=== PATIENT | male | born 1965 ===

== ENCOUNTER 2021-05-19 22:51 | Emergency (ER) | payer MEDICARE, MEDICAID, SELFPAY ==
--- NOTE | ~2021-05-19 | XR_ITS ---
EXAMINATION: XR CHEST CLINICAL INFORMATION: Asthma and shortness of breath. COMPARISON: None TECHNIQUE: Frontal view of the chest was obtained. FINDINGS: No significant abnormality is noted involving the heart, lungs, mediastinum, bony thorax or soft tissues. XR/XR chest 1V IMPRESSION: Unremarkable examination.
[2021-05-19 23:25] VITALS: BP 130/86; PULSE 85; RESP 18; TEMP 37.1; O2SAT 96; BMI 24.1
[2021-05-20 00:11] LABS: COVID-19 Test Negative (Negative)
[2021-05-20 02:00] VITALS: BP 151/92; PULSE 84; RESP 15; TEMP 36.8; O2SAT 97
--- NOTE | 2021-05-20 03:01 | ED.URI ---
HPI - URI/Sore Throat General Chief Complaint: Upper Respiratory Symptoms Stated Complaint: Asthma Time Seen by Provider: 05/19/21 23:59 History of Present Illness HPI Narrative: Patient is a 56-year-old male with a history of asthma. Baseline on albuterol. Never been hospitalized. Just recently came from [place]. Positive coughing upper respiratory symptoms. Patient already received his coronavirus vaccine x2. Positive generalized malaise weakness. No vomiting. Related Data Previous Rx's Medication Instructions Recorded albuterol sulfate 90 mcg/actuation 2 puff INHALATION Q6H PRN 14 Days 05/20/21 aerosol inhaler #8.5 g prednisone 20 mg tablet 40 mg PO DAILY #10 tab 05/20/21 Allergies Allergy/AdvReac Type Severity Reaction Status Date / Time No Known Allergies Allergy Verified 05/20/21 02:44 Review of Systems Review of Systems: Positive wheezing positive coughing upper respiratory symptoms No history of [place] No history of congestive heart failure All system reviewed otherwise negative Yes all other systems are reviewed and are negative FORMERLY [facility], [facility] Past Medical History Attestation statement: The following information was validated with the patient. Medical History Asthma Social History Social History Alcohol intake: never Patient Tobacco Use Status: Never used Tobacco Use of substances other than those prescribed or required for medical reasons: No Advance Directives: No Physical Exam Vital Signs: Vital Signs: Last Vital Signs Temp 98.3 F 05/20/21 02:00 Pulse 85 05/20/21 03:37 Resp 18 05/20/21 03:37 BP 151/92 H 05/20/21 02:00 Pulse Ox 97 05/20/21 02:00 BMI result Body Mass Index 24.1 Appearance: Alert. Oriented X3. No acute distress. Eyes: Pupils equal, round and reactive to light. ENT: Pharynx normal. Neck: Normal inspection. Neck supple. No lymph nodes noted. No crepitus CVS: Normal heart rate and rhythm. Pulses normal. Normal S1 and S2 Respiratory: No respiratory distress. Positive expiratory wheezing noted bilaterally Abdomen: Soft and nontender. No rigidity. No distention. good BS x4 Skin: Skin warm and dry. Normal skin color. Normal skin turgor. Extremities: No lower extremity edema. Neurovascular intact to all extremities. No Lacerations. No Rash Neuro: Oriented X 3. No motor deficit. No sensory deficit. Moving all extermities. No slurred speech MDM - URI/Sore Throat MDM Narrative Medical decision making narrative: Patient's chest x-ray negative for acute infiltrate COVID test was negative. Given neb treatment here in the emergency department. Steroids given. Symptoms resolved. Will discharge patient home. Close follow-up outpatient basis will prescribe steroids. In stable condition. Medical Records Attestation: I reviewed the patient's medical records. Lab Data Attestation: I reviewed the patient's lab results. Labs: Lab Results 05/19/21 Range/Units 23:43 COVID-19 ([facility]) Negative (Negative) COVID-19 Clin Com See Note Discharge Plan Discharge Clinical Impression: Asthma Patient Disposition: Home, Self-Care Instructions: Asthma (ED) Prescriptions: New prednisone 20 mg tablet 40 mg PO DAILY Qty: 10 RF: 0 albuterol sulfate 90 mcg/actuation HFA aerosol inhaler 2 puff inhalation Q6H PRN (Reason: shortness of breath or wheezing) 14 Days Qty: 8.5 RF: 0 Print Language: German
[2021-05-20] MEDS: Albuterol/Iprat 2.5/0.5MG 3 ML AMPUL.NEB INHALE (03:36)
[2021-05-20] MEDS: Albuterol Sulfate (0.083%) 2.5 MG/3 ML VIAL.NEB 5 MG INHALE (03:36)
[2021-05-20 03:37] VITALS: PULSE 85; RESP 18; O2SAT 96
[2021-05-20] MEDS: predniSONE 20 MG TABLET 60 MG PO (03:40)
== END 2021-05-20 05:16 | disposition home or self-care (01) ==
PROVIDERS: Emergency Provider Emergency Medicine Emergency Medical Services
DX: J45.909 Unspecified asthma, uncomplicated (principal); Z20.822 Contact with and (suspected) exposure to COVID-19; Z79.899 Other long term (current) drug therapy
CPT/HCPCS: 71045; 87635; 94640; 99284; 99285

== ENCOUNTER 2022-10-08 08:47 | Outpatient (REF) | payer OTHER, SELFPAY ==
[2022-10-08 09:06] LABS: MANUAL DIFF FLAG NO
[2022-10-08 09:33] LABS: Basophils Absolute Auto 0.1 X10*3/uL (0.0-0.2); Basophils Percent Auto 0.8 % (0-2); Eosinophils Absolute Auto 0.3 X10*3/uL (0.0-0.4); Eosinophils Percent Auto 3.6 % (0-4); Hematocrit 51.6 % (42.0-52.0); Hemoglobin 16.4 g/dl (14.0-18.0); Imm Gran Abs Auto 0.05 X10*3/uL (0.00-0.03); Imm Gran Pct Auto 0.6 % (0.0-0.4); Lymphocytes Absolute Auto 3.3 X10*3/uL (1.2-4.9); Lymphocytes Percent Auto 37.9 % (20-40); Mean Corpuscular HGB Conc 31.8 g/dl (31.0-36.0); Mean Corpuscular Hemoglobin 28.4 pg (27.0-33.0); Mean Corpuscular Volume 89.4 fL (80.0-98.0); Mean Platelet Volume 9.7 fL (9.4-12.4); Monocytes Absolute Auto 0.8 X10*3/uL (0.1-1.2); Monocytes Percent Auto 9.1 % (2-11); Neutrophils Absolute Auto 4.2 x10*3/uL (2.0-8.3); Platelet Count 321 X10*3/uL (160-400); Red Blood Count 5.77 X10*6/uL (4.60-5.80); Red Cell Distribution Width 13.2 % (11.0-16.0); White Blood Count 8.8 X10*3/uL (4.8-10.8)
[2022-10-08 10:15] LABS: Alanine Aminotransferase 16 U/L (0-40); Albumin Level 4.4 g/dL (3.5-5.0); Alkaline Phosphatase 104 U/L (39-117); Anion Gap 12 (12-20); Aspartate Amino Transferase 15 U/L (5-37); Bilirubin Total 0.4 mg/dL (0.0-1.0); Blood Urea Nitrogen 12 mg/dL (9-16); Calcium 9.9 mg/dL (8.4-10.2); Carbon Dioxide 29 mmol/L (22-29); Chloride 104 mmol/L (96-108); Cholesterol 153 mg/dL; Estimated Glomerular Filt Rate > 60; Glucose Fasting 90 mg/dL (60-99); HDL Cholesterol 56 mg/dL; LDL Cholesterol Calculated 78 mg/dl; Potassium 4.9 mmol/L (3.3-5.1); Sodium 140 mmol/L (135-145); Total Protein 7.5 g/dL (6.5-8.0); Triglycerides 99 mg/dL
[2022-10-08 10:25] LABS: TSH reflex Free T4 1.44 uIU/mL (0.32-4.0); Vitamin D 25-OH Total 18.4 ng/mL (>30)
[2022-10-08 10:54] LABS: Appearance Urine Clear; Color Urine Yellow; Glucose Urine UA Negative (Negative); Leukocyte Esterase Urine Trace (Negative); Nitrite Urine Negative (Negative); PH 6.5 (5.0-9.0); UMIC TRIGGER UACC YES; Urine Blood Negative (Negative); Urine Ketones Negative (Negative); Urine Protein Negative (Neg-Trace)
[2022-10-08 10:58] LABS: Bacteria Urine None Seen (None Seen); Hyaline Casts Urine 0-2 /LPF (0-2); RBC Urine 0-2 /HPF (0-2); Squamous Epithelial Cell Urine 0-2 /HPF (0-2); WBC Urine 0-5 /HPF (0-5)
== END 2022-10-08 08:48 | disposition home or self-care (01) ==
LOC: HO.LAB 08:47
PROVIDERS: PCP Internal Medicine; Visit Provider Internal Medicine
DX: E78.00 Pure hypercholesterolemia, unspecified (principal); E55.9 Vitamin D deficiency, unspecified; I10 Essential (primary) hypertension
CPT/HCPCS: 36415; 80053; 80061; 81001; 82306; 84443; 85025

== ENCOUNTER → 2022-10-29 10:08 | Outpatient (REF) | payer OTHER, SELFPAY | LOC: HO.CARD 10:08 | PROVIDERS: PCP Internal Medicine; Visit Provider Internal Medicine | DX: R01.1 Cardiac murmur, unspecified (principal) | CPT/HCPCS: 93306 ==

== ENCOUNTER 2023-01-04 14:54 | Outpatient (AMB) | payer OTHER, SELFPAY ==
[2023-01-04 15:12] VITALS: BP 110/60; PULSE 84; O2SAT 98; BMI 26.7
--- NOTE | 2023-01-04 15:12 | A.OFFPC_ITS ---
Vital Signs 01/04/23 15:12 Height 5 ft 5 in Weight 160 lb 8 oz BMI 26.7 BP 110/60 Blood Pressure Location Lt brachial Position Sitting Pulse 84 Pulse Source Pulse Oximeter Pulse Oximetry (%) 98 Oxygen Delivery Method Room Air Intake Visit Reasons: HTN, asthma, cardiac murmur, bipolar depression [employer] Required: No Accompanied by: Self / Same As Patient Allergies No Known Allergies Allergy (Verified 01/05/23 02:57) Medication List - Last Reconciled 01/05/23 by Ha Little MD albuterol sulfate 90 mcg/actuation 2 puffs inhalation Q6H PRN 30 days amlodipine 5 mg PO DAILY 30 days melatonin 5 mg PO BID 30 days olanzapine 15 mg PO DAILY 30 days trazodone 50 mg PO BEDTIME PRN 30 days Tobacco use date assessed: 01/04/23 Dental Screening Dental Screen Date: 01/04/23 Did you have a dental visit in the last 12 months?: Yes Did you have a dental problem in the last 6 months where you did not have access to dental care?: No Was dental information given to patient?: Patient has dentist HPI HTN, asthma, cardiac murmur, bipolar depression HPI Details Patient comes in today for his follow up visit States that he feels okay He denies any headaches or dizziness Denies any chest pains, no SOB No nausea/vomiting, no abdominal pain No change in bowel habits noted Would like to know how he did on his labs done few months ago His family has noticed that patient seems to stay very drowsy for a while at times when he wakes up in the morning and would like to know if he can try cutting down on the dosage of some of the medications he takes at bedtime to help him sleep States that he has not yet been contacted by Psychiatry and has no appointment scheduled with them yet [facility]MERLY [facility] Medical History (Updated 01/05/23 @ 03:43 by Ha Little MD) Asthma Benign essential hypertension Bipolar depression Insomnia Overweight (BMI 25.0-29.9) Vitamin D deficiency Surgical History No pertinent past surgical history Family History Other Family history unknown Social History Housing: House Alcohol intake: never Patient Tobacco Use Status: Never used Tobacco e-Cigarette/Vaping Use: Never Used service: No Current occupational status: disabled Cognitive needs: No Hearing needs: Yes Vision needs: Yes Questionnaire PHQ-9 Over the last 2 weeks, how often have you been bothered by any of the following problems? 1. Little interest or pleasure in doing things: nearly every day 2. Feeling down, depressed, or hopeless: nearly every day 3. Trouble falling or staying asleep, or sleeping too much: more than half the days 4. Feeling tired or having little energy: more than half the days 5. Poor appetite or overeating: more than half the days 6. Feeling bad about yourself - or that you are a failure or have let yourself or your family down: several days 7. Trouble concentrating on things, such as reading the newspaper or watching television: several days 8. Moving or speaking so slowly that other people could have noticed. Or the opposite - being so fidgety or restless that you have been moving around a lot more than usual: several days 9. Thoughts that you would be better off or of hurting yourself in some way: several days Total score: 16 Depression Screening Interpretation: Positive Depression Screening Follow-up: Existing condition, In treatment and Community Mental Health Worker F/U 33708 - PHQ-9 Billing: Yes Source: Developed by Drs. Ayo Ramirez, Jocelyn Mireles, Adriel Hugo and colleagues, with an educational anil from [employer]. Thrive Questionnaire Date Thrive assessed: 01/04/23 I am a: Parent/Caregiver What is your living situation today?: I have a steady place to live Within the past 12 months, did the food you bought not last and you didn't have the money to get more?: Never true Within the past 12 months, did you worry whether your food would run out before you got money to buy more?: Never true Do you have trouble paying for medicines?: No Do you have trouble getting transportation to medical appointments?: No Do you have trouble paying your heating and electricity bill?: No Do you have trouble taking care of your child, family member or friend?: No Do you have trouble with day-to-day activities such as bathing, preparing meals, shopping, managing finances, etc.?: No Are you currently unemployed and looking for a job?: No Are you interested in more education?: No Please select the resources that you would like help with: None Currently or been in a relationship where the following occur: no concerns reported AUDIT C Alcohol Use Questionnaire (AUDIT-C) 1. How often do you have a drink containing alcohol?: Monthly or less 2. How many drinks containing alcohol do you have on a typical day when you are drinking?: 1 or 2 3. How often do you have six or more drinks on one occasion?: Never Total Score: 1 Score Reviewed/Action Taken: Yes ANJLEICA-7 AMB Questionnaire ANJELICA-7 Date ANJELICA - 7 assessed: 01/04/23 Feeling nervous, anxious, or on edge: 3 = Nearly every day Not being able to stop or control worryin = Nearly every day Worrying too much about different things: 3 = Nearly every day Trouble relaxin = Nearly every day Being so restless that it is hard to sit still: 1 = Several days Becoming easily annoyed or irritable: 1 = Several days Feeling afraid as if something awful might happen: 1 = Several days Total ANJELICA-7 score (0-4 normal; 5-9 mild; 10-14 moderate; 15-21 severe): 15 Source: Developed by Drs. Ayo Ramirez, Jocelyn Mireles, Adriel Hugo and colleagues, with an educational anil from [employer]. Review of Systems Const Reports difficulty sleeping, Reports fatigue, Denies fever(s) and Denies headache(s) ENT Denies dysphagia, Denies dizziness, Denies otalgia, Denies headache(s), Denies neck pain, Denies odynophagia and Denies sore throat Card Denies chest pain, Denies palpitations and Denies dyspnea Resp Denies cough and Denies dyspnea GI Denies abdominal pain, Denies constipation, Denies dysphagia, Denies heartburn, Denies diarrhea, Denies nausea, Denies odynophagia and Denies vomiting Denies dysuria, Denies nocturia and Denies urinary frequency Musc Denies neck pain Neuro Denies dizziness and Denies headache(s) Psych Reports depression Endo Reports fatigue and Denies palpitations Physical exam (Primary Care) Vital Signs: Last Vital Signs Pulse 84 01/04/23 15:12 BP 110/60 01/04/23 15:12 Pulse Ox 98 01/04/23 15:12 Oxygen Delivery Method Room Air 01/04/23 15:12 BMI result Body Mass Index 26.7 Tobacco/Smoking Status: Tobacco use Status Tobacco use date assessed 01/04/23 01/04/23 15:19 Patient Tobacco Use Status Never used Tobacco 01/04/23 15:19 e-Cigarette/Vaping Use Never Used 01/04/23 15:19 PHQ-9: PHQ-9 Score PHQ-9: Total score 16 01/04/23 15:58 Depression Screening Interpretation: Positive Depression Screening Follow-up: Existing condition, In treatment and Community Mental Health Worker F/U Thrive Assessment: Date of Thrive Assessment Date Thrive assessed 01/04/23 01/04/23 15:19 Currently or been in a relationship where the following occur: no concerns reported Const General: no acute distress and alert HENMT Ears: TM's normal bilaterally and EAC's normal Throat: Yes posterior oropharynx normal and Yes tonsils normal (no TP congestion) Neck Neck: Yes no lymphadenopathy and Yes supple Resp Auscultation: clear to auscultation bilaterally, no rales and no wheezes Cardio Rate: regular rate Rhythm: regular rhythm Heart sounds: Murmur heart sound present systolic soft, II/ and at the apex GI Palpation (GI): Soft to palpation and nontender Auscultation: normal bowel sounds Skin Rashes: no rashes Extrem General: Yes no clubbing, cyanosis or edema Results Reviewed Results Reviewed: Laboratory Tests 10/08/22 10/08/22 10/08/22 09:02 09:05 09:05 WBC 8.8 Hgb 16.4 Hct 51.6 Plt Count 321 Sodium 140 Potassium 4.9 Creatinine 0.89 Estimated GFR > 60 Fasting Glucose 90 AST 15 ALT 16 Triglycerides 99 Cholesterol 153 LDL Cholesterol, Calc 78 HDL Cholesterol 56 25-OH Vitamin D Total 18.4 TSH 1.44 Ur Specific [place] 1.020 Urine Protein Negative Urine Glucose (UA) Negative Urine Blood Negative Assessment and Plan Assessment & Plan (1) Benign essential hypertension: Code(s): I10 - Essential (primary) hypertension Plan: Reinforced low sodium diet - goal is systolic BP of 120 mm or less Continue Amlodipine 5 mg QD Patient is advised that his labs done a few months ago came out mostly normal - results of these are reviewed and discussed with patient today (2) Cardiac murmur: Code(s): R01.1 - Cardiac murmur, unspecified Plan: Echocardiogram done a couple of months ago revealed normal left ventricular size, thickness, systolic function, and wall motion. The visually estimated ejection fraction is between 55-60%.? Diastolic function is normal for age. Mildly increased right ventricular cavity size.? There is normal right ventricular systolic function. The right atrium is mildly dilated. There is trace MR and trace TR noted (3) Asthma: Code(s): J45.909 - Unspecified asthma, uncomplicated Qualifiers: Asthma severity: unspecified severity Asthma persistence: unspecified Asthma complication type: uncomplicated Qualified Code(s): J45.909 - Unspecified asthma, uncomplicated Plan: Controlled; continue Albuterol HFA 2 inhalations Q 6 hours PRN (4) Vitamin D deficiency: Code(s): E55.9 - Vitamin D deficiency, unspecified Plan: He is advised that his Vitamin D level was very low on his labs done a few months ago Will start him on Vitamin D3 2000 units QD (5) Insomnia: Code(s): G47.00 - Insomnia, unspecified Qualifiers: Insomnia type: unspecified Qualified Code(s): G47.00 - Insomnia, unspecified Plan: Sleep hygiene impractical given patient's current psychiatric issues Continue Trazodone 50 mg Q HS; is also taking Melatonin 5 mg 2 tablets Q HS but is now advised to try cutting this down to 1 tablet Q HS as patient reports that he has been feeling drowsy in the morning when he wakes up (6) Intellectual disability: Code(s): F79 - Unspecified intellectual disabilities Plan: Patient reportedly had some tests and imaging studies done at [facility] a few months ago and was advised that he has cognitive defects due to some abnormalities on his head scan Have tried to obtain copies of these from [facility] for review but we have not yet received any information or correspondence from them so far (7) Bipolar depression: Code(s): F31.9 - Bipolar disorder, unspecified Plan: Continue Olanzapine 15 mg QD Patient has been previously referred to psychiatry for further evaluation and management but states that he has not yet been contacted and no appointments have been scheduled for him yet (8) Overweight (BMI 25.0-29.9): Code(s): E66.3 - Overweight Plan: Reinforced diet; exercise and weight loss may be unrealistic given patient's psychiatric and cognitive issues but he is still encouraged to try to get some exercise and increase his physical activity as often and as much as he can - st ates that he will try to do so Plan Follow up in 3 months Medications: New cholecalciferol (vitamin D3) 50 mcg PO DAILY 90 days 90 caps 3RF E55.9 - Vitamin D deficiency, unspecified Coding Level of Care Code Est Pt Level 4 (85983) Diagnoses Benign essential hypertension I10 Cardiac murmur R01.1 Asthma J45.909 Asthma severity: unspecified severity Asthma persistence: unspecified Asthma complication type: uncomplicated Vitamin D deficiency E55.9 Insomnia G47.00 Insomnia type: unspecified Intellectual disability F79 Bipolar depression F31.9 Overweight (BMI 25.0-29.9) E66.3
== END 2023-01-04 16:02 | disposition home or self-care (01) ==
PROVIDERS: PCP Internal Medicine; Visit Provider Internal Medicine
DX: I10 Essential (primary) hypertension (principal); J45.909 Unspecified asthma, uncomplicated; E55.9 Vitamin D deficiency, unspecified; F31.9 Bipolar disorder, unspecified; R01.1 Cardiac murmur, unspecified; G47.00 Insomnia, unspecified; F79 Unspecified intellectual disabilities; E66.3 Overweight
CPT/HCPCS: 99214

== ENCOUNTER 2023-04-04 14:54 | Outpatient (AMB) | payer OTHER, SELFPAY ==
[2023-04-04 14:59] VITALS: BP 112/78; PULSE 84; O2SAT 95; BMI 30.7
--- NOTE | 2023-04-04 14:59 | MHC.PC.OV ---
Vital Signs 04/04/23 14:59 Height 5 ft 5 in Weight 184 lb 4 oz BMI 30.7 BP 112/78 Blood Pressure Location Lt brachial Position Sitting Pulse 84 Pulse Source Pulse Oximeter Pulse Oximetry (%) 95 Oxygen Delivery Method Room Air Intake Visit Reasons: 3mon F/U Medicine Technologist Required: No Accompanied by: Self / Same As Patient Allergies No Known Allergies Allergy (Verified 04/04/23 15:17) Medication List - Last Reconciled 04/04/23 by Ha Little MD albuterol sulfate 90 mcg/actuation 2 puffs inhalation Q6H PRN 30 days amlodipine 5 mg PO DAILY 30 days cholecalciferol (vitamin D3) 50 mcg PO DAILY 90 days melatonin 5 mg PO BID 30 days olanzapine 15 mg PO DAILY 30 days trazodone 50 mg PO BEDTIME PRN 30 days Tobacco use date assessed: 04/04/23 Dental Screening Dental Screen Date: 04/04/23 Did you have a dental visit in the last 12 months?: No Did you have a dental problem in the last 6 months where you did not have access to dental care?: No Was dental information given to patient?: No HPI 3mon F/U HPI Details Patient comes in today for his follow up visit States that he feels okay He denies any headaches or dizziness Denies any chest pains, no SOB No nausea/vomiting, no abdominal pain No change in bowel habits noted [facility] Medical History (Updated 04/04/23 @ 15:35 by Ha Little MD) Obesity (BMI 30-39.9) Vitamin D deficiency Insomnia Benign essential hypertension Bipolar depression Asthma Surgical History No pertinent past surgical history Family History Other Family history unknown Social History Housing: House Alcohol intake: never Patient Tobacco Use Status: Never used Tobacco e-Cigarette/Vaping Use: Never Used service: No Current occupational status: disabled Cognitive needs: No Hearing needs: Yes Vision needs: Yes Questionnaire PHQ-9 Over the last 2 weeks, how often have you been bothered by any of the following problems? 1. Little interest or pleasure in doing things: nearly every day 2. Feeling down, depressed, or hopeless: nearly every day 3. Trouble falling or staying asleep, or sleeping too much: more than half the days 4. Feeling tired or having little energy: more than half the days 5. Poor appetite or overeating: more than half the days 6. Feeling bad about yourself - or that you are a failure or have let yourself or your family down: several days 7. Trouble concentrating on things, such as reading the newspaper or watching television: several days 8. Moving or speaking so slowly that other people could have noticed. Or the opposite - being so fidgety or restless that you have been moving around a lot more than usual: several days 9. Thoughts that you would be better off or of hurting yourself in some way: several days Total score: 16 Depression Screening Interpretation: Positive Depression Screening Follow-up: Existing condition, In treatment and Community Mental Health Worker F/U Depression Screening Done: Yes 17080 - PHQ-9 Billing: Yes Source: Developed by Drs. Ayo Ramirez, Jocelyn Mireles, Adriel Hugo and colleagues, with an educational anil from [employer]. Thrive Questionnaire Date Thrive assessed: 04/04/23 I am a: Parent/Caregiver What is your living situation today?: I have a steady place to live Within the past 12 months, did the food you bought not last and you didn't have the money to get more?: Never true Within the past 12 months, did you worry whether your food would run out before you got money to buy more?: Never true Do you have trouble paying for medicines?: No Do you have trouble getting transportation to medical appointments?: No Do you have trouble paying your heating and electricity bill?: No Do you have trouble taking care of your child, family member or friend?: No Do you have trouble with day-to-day activities such as bathing, preparing meals, shopping, managing finances, etc.?: No Are you currently unemployed and looking for a job?: No Are you interested in more education?: No Please select the resources that you would like help with: None Currently or been in a relationship where the following occur: no concerns reported AUDIT C Alcohol Use Questionnaire (AUDIT-C) 1. How often do you have a drink containing alcohol?: Monthly or less 2. How many drinks containing alcohol do you have on a typical day when you are drinking?: 1 or 2 3. How often do you have six or more drinks on one occasion?: Never Total Score: 1 Score Reviewed/Action Taken: Yes ANJELICA-7 AMB Questionnaire ANJELICA-7 Date ANJELICA - 7 assessed: 04/04/23 Feeling nervous, anxious, or on edge: 3 = Nearly every day Not being able to stop or control worryin = Nearly every day Worrying too much about different things: 3 = Nearly every day Trouble relaxin = Nearly every day Being so restless that it is hard to sit still: 1 = Several days Becoming easily annoyed or irritable: 1 = Several days Feeling afraid as if something awful might happen: 1 = Several days Total ANJELICA-7 score (0-4 normal; 5-9 mild; 10-14 moderate; 15-21 severe): 15 Source: Developed by Drs. Ayo Ramirez, Jocelyn Mireles, Adriel Hugo and colleagues, with an educational anil from [employer]. Review of Systems Const Denies chills, Denies difficulty sleeping (better with Rx), Reports fatigue, Denies fever(s) and Denies headache(s) ENT Denies dysphagia, Denies dizziness, Denies otalgia, Denies headache(s), Denies neck pain, Denies odynophagia and Denies sore throat Card Denies chest pain, Denies palpitations and Denies dyspnea Resp Denies cough and Denies dyspnea GI Denies abdominal pain, Denies constipation, Denies dysphagia, Denies heartburn, Denies diarrhea, Denies nausea, Denies odynophagia and Denies vomiting Denies dysuria, Denies nocturia and Denies urinary frequency Musc Denies neck pain Skin/Breast Denies rash Neuro Denies dizziness and Denies headache(s) Psych Reports depression Endo Reports fatigue and Denies palpitations Physical exam (Primary Care) Vital Signs: Last Vital Signs Pulse 84 04/04/23 14:59 BP 112/78 04/04/23 14:59 Pulse Ox 95 04/04/23 14:59 Oxygen Delivery Method Room Air 04/04/23 14:59 BMI result Body Mass Index 30.7 Tobacco/Smoking Status: Tobacco use Status Tobacco use date assessed 04/04/23 04/04/23 15:04 Patient Tobacco Use Status Never used Tobacco 04/04/23 15:04 e-Cigarette/Vaping Use Never Used 04/04/23 15:04 PHQ-9: PHQ-9 Score PHQ-9: Total score 16 04/04/23 15:04 Depression Screening Interpretation: Positive Depression Screening Follow-up: Existing condition, In treatment and Community Mental Health Worker F/U Thrive Assessment: Date of Thrive Assessment Date Thrive assessed 04/04/23 04/04/23 15:04 Currently or been in a relationship where the following occur: no concerns reported Const General: no acute distress and alert HENMT Ears: TM's normal bilaterally and EAC's normal Throat: Yes posterior oropharynx normal and Yes tonsils normal (no TP congestion) Neck Neck: Yes no lymphadenopathy and Yes supple Resp Auscultation: clear to auscultation bilaterally, no rales and no wheezes Cardio Rate: regular rate Rhythm: regular rhythm Heart sounds: Murmur heart sound present systolic soft, II/ and at the apex GI Palpation (GI): Soft to palpation and nontender Auscultation: normal bowel sounds Skin Rashes: no rashes Extrem General: Yes no clubbing, cyanosis or edema Assessment and Plan Assessment & Plan (1) Benign essential hypertension: Code(s): I10 - Essential (primary) hypertension Plan: Reinforced low sodium diet - goal is systolic BP of 120 mm or less Continue Amlodipine 5 mg QD (2) Cardiac murmur: Code(s): R01.1 - Cardiac murmur, unspecified Plan: Echocardiogram done a few months ago revealed normal left ventricular size, thickness, systolic function, and wall motion. The visually estimated ejection fraction is between 55-60%.? Diastolic function is normal for age. Mildly increased right ventricular cavity size.? There is normal right ventricular systolic function. The right atrium is mildly dilated. There is trace MR and trace TR noted, which are most likely the source of his audible cardiac murmur (3) Asthma: Code(s): J45.909 - Unspecified asthma, uncomplicated Qualifiers: Asthma severity: unspecified severity Asthma persistence: unspecified Asthma complication type: uncomplicated Qualified Code(s): J45.909 - Unspecified asthma, uncomplicated Plan: Controlled/stable; continue Albuterol HFA 2 inhalations Q 6 hours PRN (4) Vitamin D deficiency: Code(s): E55.9 - Vitamin D deficiency, unspecified Plan: Continue Vitamin D3 2000 units QD (5) Insomnia: Code(s): G47.00 - Insomnia, unspecified Qualifiers: Insomnia type: unspecified Qualified Code(s): G47.00 - Insomnia, unspecified Plan: Sleep hygiene impractical given patient's current psychiatric issues Continue Trazodone 50 mg Q HS and Melatonin 5 mg 1 tablets Q HS - he is reportedly sleeping well and has less sedation the following morning when his Melatonin was lowered from 2 tablets to 1 tablet Q HS (6) Intellectual disability: Code(s): F79 - Unspecified intellectual disabilities Plan: Patient reportedly had some tests and imaging studies done at [facility] a few months ago and was advised that he has cognitive defects due to some abnormalities on his head scan Have tried to obtain copies of these from [facility] for review but we have not yet received any information or correspondence from them so far (7) Bipolar depression: Code(s): F31.9 - Bipolar disorder, unspecified Plan: Continue Olanzapine 15 mg QD Patient has been referred to psychiatry for further evaluation and management previously but states that he has not yet been seen by psychiatry although he is now following up with a therapist regularly every couple of weeks (8) Obesity (BMI 30-39.9): Code(s): E66.9 - Obesity, unspecified Plan: Reinforced diet; exercise and weight loss may be unrealistic given patient's psychiatric and cognitive issues but he is still encouraged to try to get some exercise and increase his physical activity as often and as much as he can He has gained a lot of weight (about 24 pounds) in less than 3 months and have instructed his [employer] to help him with this as patient is not expected to be able to make changes on his own due to his psychiatric issues Plan Follow up in 4 months Coding Level of Care Code Est Pt Level 3 (82346) Diagnoses Benign essential hypertension I10 Cardiac murmur R01.1 Uncomplicated asthma, unspecified asthma severity, unspecified whether persistent J45.909 Asthma severity: unspecified severity Asthma persistence: unspecified Asthma complication type: uncomplicated Vitamin D deficiency E55.9 Insomnia, unspecified type G47.00 Insomnia type: unspecified Intellectual disability F79 Bipolar depression F31.9 Obesity (BMI 30-39.9) E66.9
== END 2023-04-04 15:26 | disposition home or self-care (01) ==
PROVIDERS: PCP Internal Medicine; Visit Provider Internal Medicine
DX: I10 Essential (primary) hypertension (principal); F31.9 Bipolar disorder, unspecified; R01.1 Cardiac murmur, unspecified; J45.909 Unspecified asthma, uncomplicated; E55.9 Vitamin D deficiency, unspecified; G47.00 Insomnia, unspecified; F79 Unspecified intellectual disabilities; E66.9 Obesity, unspecified
CPT/HCPCS: 99213

== ENCOUNTER 2023-07-05 16:12 | Outpatient (AMB) | payer OTHER, SELFPAY ==
[2023-07-05 16:13] VITALS: BP 130/90; PULSE 80; O2SAT 97; BMI 31.3
--- NOTE | 2023-07-05 16:13 | A.OFFPC_ITS ---
Vital Signs 07/05/23 16:13 Height 5 ft 5 in Weight 188 lb 2 oz BMI 31.3 BP 130/90 H Blood Pressure Location Lt brachial Position Sitting Pulse 80 Pulse Source Pulse Oximeter Pulse Oximetry (%) 97 Oxygen Delivery Method Room Air Intake Visit Reasons: Physical Exam Vb Net Programmer Required: No Accompanied by: Self / Same As Patient Allergies No Known Allergies Allergy (Verified 07/05/23 16:57) Medication List - Last Reconciled 07/05/23 by Ha Little MD albuterol sulfate 90 mcg/actuation 2 puffs inhalation Q6H PRN 30 days amlodipine 5 mg PO DAILY 30 days cholecalciferol (vitamin D3) 50 mcg PO DAILY 90 days melatonin 5 mg PO BID 30 days olanzapine 15 mg PO DAILY 30 days trazodone 50 mg PO BEDTIME PRN 30 days Tobacco use date assessed: 07/05/23 Dental Screening Dental Screen Date: 07/05/23 Did you have a dental visit in the last 12 months?: No Did you have a dental problem in the last 6 months where you did not have access to dental care?: No Was dental information given to patient?: No HPI Physical Exam HPI Details Patient comes in today for his annual physical examination States that he feels okay but has been experiencing increased pain over his lower back often for the past few months He denies any history of injury or trauma to his lower back and is not aware of any recent events that may have contributed to his lower back issues He first started coming to our practice as a patient back in September 2022 - he reportedly moved here from [place] about 3 years ago (2020) and has not seen any PCP until last year He was seen and treated by a crisis team at [facility] early last year and started on some meds, which he has been on since He was supposedly also advised by someone at the crisis team that he (patient) has some unspecified mental disorder (bipolar depression ? 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 although this appears to be stable based on imaging studies done at [facility] Patient denies any headaches or dizziness Denies any chest pains, no SOB No nausea/vomiting, no abdominal pain No change in bowel habits noted He denies any acute urinary symptoms He needs all of his Rx refilled States that he has never had a screening colonoscopy done in the past [facility] Medical History (Updated 07/05/23 @ 19:23 by Ha Little MD) Intellectual disability Obesity (BMI 30-39.9) Vitamin D deficiency Insomnia Benign essential hypertension Bipolar depression Asthma Surgical History No pertinent past surgical history Family History Other Family history unknown Social History Housing: House Alcohol intake: never Patient Tobacco Use Status: Never used Tobacco e-Cigarette/Vaping Use: Never Used service: No Current occupational status: disabled Cognitive needs: No Hearing needs: Yes Vision needs: Yes Questionnaire PHQ-9 Over the last 2 weeks, how often have you been bothered by any of the following problems? 1. Little interest or pleasure in doing things: nearly every day 2. Feeling down, depressed, or hopeless: nearly every day 3. Trouble falling or staying asleep, or sleeping too much: more than half the days 4. Feeling tired or having little energy: more than half the days 5. Poor appetite or overeating: more than half the days 6. Feeling bad about yourself - or that you are a failure or have let yourself or your family down: several days 7. Trouble concentrating on things, such as reading the newspaper or watching television: several days 8. Moving or speaking so slowly that other people could have noticed. Or the opposite - being so fidgety or restless that you have been moving around a lot more than usual: several days 9. Thoughts that you would be better off or of hurting yourself in some way: several days Total score: 16 Depression Screening Interpretation: Positive Depression Screening Follow-up: Existing condition, In treatment and Community Mental Health Worker F/U Depression Screening Done: Yes 71964 - PHQ-9 Billing: Yes Source: Developed by Drs. Ayo Ramirez, Jocelyn Mireles, Adriel Hugo and colleagues, with an educational anil from [employer]. Thrive Questionnaire Date Thrive assessed: 07/05/23 I am a: Parent/Caregiver What is your living situation today?: I have a steady place to live Within the past 12 months, did the food you bought not last and you didn't have the money to get more?: Never true Within the past 12 months, did you worry whether your food would run out before you got money to buy more?: Never true Do you have trouble paying for medicines?: No Do you have trouble getting transportation to medical appointments?: No Do you have trouble paying your heating and electricity bill?: No Do you have trouble taking care of your child, family member or friend?: No Do you have trouble with day-to-day activities such as bathing, preparing meals, shopping, managing finances, etc.?: No Are you currently unemployed and looking for a job?: No Are you interested in more education?: No Please select the resources that you would like help with: None Currently or been in a relationship where the following occur: no concerns reported THRIVE Score: 0 AUDIT C Alcohol Use Questionnaire (AUDIT-C) 1. How often do you have a drink containing alcohol?: Monthly or less 2. How many drinks containing alcohol do you have on a typical day when you are drinking?: 1 or 2 3. How often do you have six or more drinks on one occasion?: Never Total Score: 1 Score Reviewed/Action Taken: Yes ANJELICA-7 AMB Questionnaire ANJELICA-7 Date ANJELICA - 7 assessed: 07/05/23 Feeling nervous, anxious, or on edge: 3 = Nearly every day Not being able to stop or control worryin = Nearly every day Worrying too much about different things: 3 = Nearly every day Trouble relaxin = Nearly every day Being so restless that it is hard to sit still: 1 = Several days Becoming easily annoyed or irritable: 1 = Several days Feeling afraid as if something awful might happen: 1 = Several days Total ANJELICA-7 score (0-4 normal; 5-9 mild; 10-14 moderate; 15-21 severe): 15 Source: Developed by Drs. Ayo Ramirez, Jocelyn Mireles, Adriel Hugo and colleagues, with an educational anil from [employer]. Review of Systems Const Denies chills, Denies fatigue, Denies fever(s), Denies headache(s), Denies malaise and Denies weakness Eyes Denies blurry vision, Denies change in vision, Denies irritation and Denies itchy eyes ENT Denies dysphagia, Denies dizziness, Denies otalgia, Denies headache(s), Denies nasal congestion, Denies neck pain, Denies odynophagia and Denies sore throat Card Denies chest pain, Denies rapid heart rate, Denies irregular heart rhythm, Denies palpitations and Denies dyspnea Resp Denies chest congestion, Denies cough, Denies dyspnea and Denies wheezing GI Denies abdominal pain, Denies bloating, Denies constipation, Denies dysphagia, Denies heartburn, Denies diarrhea, Denies nausea, Denies odynophagia and Denies vomiting Denies hematuria, Denies difficulty urinating, Denies dysuria, Denies urinary frequency and Denies urinary urgency Musc Reports back pain (recurrent, over the lower back), Denies arthralgias, Denies joint swelling, Denies muscle weakness and Denies neck pain Skin/Breast Denies change in pigmentation, Denies lesions, Denies rash and Denies unusual bruising Neuro Denies dizziness, Denies headache(s), Denies paresthesias and Denies weakness Endo Denies fatigue and Denies palpitations Aller/Immun Denies itchy eyes and Denies wheezing Physical exam (Primary Care) Vital Signs: Last Vital Signs Pulse 80 07/05/23 16:13 BP 130/90 H 07/05/23 16:13 Pulse Ox 97 07/05/23 16:13 Oxygen Delivery Method Room Air 07/05/23 16:13 BMI result Body Mass Index 31.3 Tobacco/Smoking Status: Tobacco use Status Tobacco use date assessed 07/05/23 07/05/23 16:15 Patient Tobacco Use Status Never used Tobacco 07/05/23 16:15 e-Cigarette/Vaping Use Never Used 07/05/23 16:15 PHQ-9: PHQ-9 Score PHQ-9: Total score 16 07/05/23 16:58 Depression Screening Interpretation: Positive Depression Screening Follow-up: Existing condition, In treatment and Community Mental Health Worker F/U Thrive Assessment: Date of Thrive Assessment Date Thrive assessed 07/05/23 07/05/23 16:15 Currently or been in a relationship where the following occur: no concerns reported Const General: no acute distress, alert and awake Orientation/consciousness: patient oriented x3 HENMT Head: Yes normocephalic and Yes atraumatic Ears: external ears normal, TM's normal bilaterally and EAC's normal General nose exam: No nasal discharge present Face and sinus: Yes normal facial exam and Yes sinuses nontender Teeth and gingiva: dentition normal Throat: Yes posterior oropharynx normal and Yes tonsils normal (no TP congestion) Eyes Eyelids: Yes eyelids normal Conjunctivae: conjunctivae normal Pupils: Equal, round and reactive pupils present EOM: EOMs intact bilaterally Neck Neck: Yes no lymphadenopathy and Yes supple Thyroid: Thyroid normal Resp Auscultation: clear to auscultation bilaterally, no rales and no wheezes Cardio Rate: regular rate Rhythm: regular rhythm Heart sounds: Murmur heart sound present systolic soft, II/ and at the apex GI Palpation (GI): Soft to palpation, nontender and No hepatosplenomegaly present Auscultation: normal bowel sounds General: Yes no CVA tenderness Back/Spine/Pelvis Back: no CVA tenderness Thoracic/Lumbar Spine: thoracic and lumbar spine normal to inspection Skin Lesions: no lesions Rashes: no rashes Neuro General: patient oriented x3, moves all extremities, no focal motor deficits and CN's II-XI intact bilaterally Cranial nerves: Yes Equal, round and reactive pupils present Cognition (Neuro): normal cognition Gait exam (Neuro): Normal gait present Extrem General: Yes no clubbing, cyanosis or edema Assessment and Plan Assessment & Plan (1) Annual physical exam: Code(s): Z00.00 - Encounter for general adult medical examination without abnormal findings Plan: Check labs He has never had a screening colonoscopy done in the past and will be referred for this (2) Benign essential hypertension: Code(s): I10 - Essential (primary) hypertension Plan: Reinforced low sodium diet - goal is systolic BP of 120 mm or less Continue Amlodipine 5 mg QD (3) Cardiac murmur: Code(s): R01.1 - Cardiac murmur, unspecified Plan: Echocardiogram done a few months ago revealed normal left ventricular size, thickness, systolic function, and wall motion. The visually estimated ejection fraction is between 55-60%.? Diastolic function is normal for age. Mildly increased right ventricular cavity size.? There is normal right ventricular systolic function. The right atrium is mildly dilated. There is trace MR and trace TR noted, which are most likely the source of his audible cardiac murmur (4) Asthma: Code(s): J45.909 - Unspecified asthma, uncomplicated Qualifiers: Asthma complication type: uncomplicated Asthma persistence: unspecified Asthma severity: unspecified severity Qualified Code(s): J45.909 - Unspecified asthma, uncomplicated Plan: Controlled/stable; continue Albuterol HFA 2 inhalations Q 6 hours PRN (5) Vitamin D deficiency: Code(s): E55.9 - Vitamin D deficiency, unspecified Plan: Continue Vitamin D3 2000 units QD (6) Low back pain: Code(s): M54.50 - Low back pain, unspecified Qualifiers: Chronicity: unspecified Back pain laterality: midline Sciatica presence: without sciatica Qualified Code(s): M54.50 - Low back pain, unspecified Plan: Discussed activity and weight-lifting restrictions to avoid aggravating his low back pain Will send him for lumbar spine x-rays for further evaluation (7) Insomnia: Code(s): G47.00 - Insomnia, unspecified Qualifiers: Insomnia type: unspecified Qualified Code(s): G47.00 - Insomnia, unspecified Plan: Sleep hygiene impractical given patient's current psychiatric issues Continue Trazodone 50 mg Q HS and Melatonin 5 mg 1 tablets Q HS - he is reportedly sleeping well and has less sedation the following morning when his Melatonin was lowered from 2 tablets to 1 tablet Q HS (8) Intellectual disability: Code(s): F79 - Unspecified intellectual disabilities Plan: Patient reportedly had some tests and imaging studies done at [facility] last year (2022) and was advised that he has cognitive defects due to some abnormalities on his head scan Have tried to obtain copies of these from [facility] for review but we have not yet received any information or correspondence from them so far (9) Bipolar depression: Code(s): F31.9 - Bipolar disorder, unspecified Plan: Continue Olanzapine 15 mg QD Patient has been referred to psychiatry for further evaluation and management previously but states that he has not yet been seen by psychiatry although he has been following up with a therapist regularly every couple of weeks for a while now Will redo referral to psychiatry (10) Obesity (BMI 30-39.9): Code(s): E66.9 - Obesity, unspecified Plan: Reinforced diet; exercise and weight loss may be unrealistic given patient's psychiatric and cognitive issues but he is still encouraged to try to get some exercise and increase his physical activity as often and as much as he can (11) Colon cancer screening: Code(s): Z12.11 - Encounter for screening for malignant neoplasm of colon Plan: Will refer him to GI for screening colonoscopy Plan Follow up in 4 months Orders: Orders Complete Blood Count Auto Diff Today D64.9 - Anemia, unspecified, Z00.00 - Encounter for general adult medical examination without abnormal findings Comprehensive [place]. Panel Fast Today E78.00 - Pure hypercholesterolemia, unspecified, Z00.00 - Encounter for general adult medical examination without abnormal findings TSH reflex Free T4 Today E78.00 - Pure hypercholesterolemia, unspecified, Z00.00 - Encounter for general adult medical examination without abnormal findings UA CC w/rflx Micro + Cult Today R30.0 - Dysuria, Z00.00 - Encounter for general adult medical examination without abnormal findings Vitamin D 25-OH Total Today E55.9 - Vitamin D deficiency, unspecified, Z00.00 - Encounter for general adult medical examination without abnormal findings Prostate Specific Antigen Today N40.0 - Benign prostatic hyperplasia without lower urinary tract symptoms, Z00.00 - Encounter for general adult medical examination without abnormal findings XR lumbar spine 2-3V Today M54.50 - Low back pain, unspecified Lipid Panel Today E78.00 - Pure hypercholesterolemia, unspecified, Z00.00 - Encounter for general adult medical examination without abnormal findings Referrals Gastroenterology Referral Z12.11 - Encounter for screening for malignant neoplasm of colon Psychiatry Referral F31.9 - Bipolar disorder, unspecified Medications: Refilled amlodipine 5 mg PO DAILY 30 days 30 tabs 3RF cholecalciferol (vitamin D3) 50 mcg PO DAILY 90 days 90 caps 3RF E55.9 - Vitamin D deficiency, unspecified olanzapine 15 mg PO DAILY 30 days 30 tabs 3RF trazodone 50 mg PO BEDTIME 30 days PRN 30 tabs 3RF insomnia albuterol sulfate 90 mcg/actuation 2 puffs inhalation Q6H 30 days PRN 8.5 grams 3RF shortness of breath or wheezing J45.909 - Unspecified asthma, uncomplicated melatonin 5 mg PO BID 30 days 60 caps 3RF Coding Level of Care Code Est Pt Prev Care 40-64y(96043) Diagnoses Annual physical exam Z00.00 Benign essential hypertension I10 Cardiac murmur R01.1 Uncomplicated asthma, unspecified asthma severity, unspecified whether persistent J45.909 Asthma complication type: uncomplicated Asthma persistence: unspecified Asthma severity: unspecified severity Vitamin D deficiency E55.9 Midline low back pain without sciatica, unspecified chronicity M54.50 Chronicity: unspecified Back pain laterality: midline Sciatica presence: without sciatica Insomnia, unspecified type G47.00 Insomnia type: unspecified Intellectual disability F79 Bipolar depression F31.9 Obesity (BMI 30-39.9) E66.9 Colon cancer screening Z12.11
== END 2023-07-05 17:09 | disposition home or self-care (01) ==
PROVIDERS: PCP Internal Medicine; Visit Provider Internal Medicine
DX: Z00.00 Encounter for general adult medical examination without abnormal findings (principal); F31.9 Bipolar disorder, unspecified; I10 Essential (primary) hypertension; R01.1 Cardiac murmur, unspecified; J45.909 Unspecified asthma, uncomplicated; E55.9 Vitamin D deficiency, unspecified; M54.50 Low back pain, unspecified; G47.00 Insomnia, unspecified; F79 Unspecified intellectual disabilities; E66.9 Obesity, unspecified; Z12.11 Encounter for screening for malignant neoplasm of colon
CPT/HCPCS: 99396

== ENCOUNTER 2023-07-09 09:54 | Outpatient (REF) | payer OTHER, SELFPAY ==
--- NOTE | ~2023-07-09 | XR_ITS ---
EXAMINATION: XR LUMBOSACRAL SPINE CLINICAL INFORMATION: Lower back pain. COMPARISON: None available. TECHNIQUE: AP and lateral views of the lumbar spine and lateral view of the lumbosacral junction. FINDINGS: Vertebral body heights and alignment are normal. There is mild disc space narrowing at L3-L4 through L5-S1. The remaining disc spaces are relatively well-maintained. No acute fracture or spondylolisthesis is seen. There are Schmorl's nodes at T11-T12 and T12-L1. There is multi-level mild lumbar spondylosis. The posterior elements are intact. The paravertebral soft tissues are unremarkable. A 1.4 cm triangular left renal lower pole calculus is seen. XR/XR lumbar spine 2-3V IMPRESSION: 1. There is mild degenerative disc disease at L3-L4 through L5-S1. 2. There is multi-level mild lumbar spondylosis. 3. A left renal calculus is seen, which can be more fully evaluated with dedicated renal ultrasound, if clinically indicated.
[2023-07-09 10:09] LABS: MANUAL DIFF FLAG NO
[2023-07-09 10:46] LABS: Basophils Absolute Auto 0.1 X10*3/uL (0.0-0.2); Basophils Percent Auto 0.4 % (0-2); Eosinophils Absolute Auto 0.2 X10*3/uL (0.0-0.4); Eosinophils Percent Auto 1.8 % (0-4); Hematocrit 51.8 % (42.0-52.0); Hemoglobin 16.6 g/dl (14.0-18.0); Imm Gran Abs Auto 0.06 X10*3/uL (0.00-0.03); Imm Gran Pct Auto 0.5 % (0.0-0.4); Lymphocytes Absolute Auto 3.7 X10*3/uL (1.2-4.9); Lymphocytes Percent Auto 32.6 % (20-40); Mean Corpuscular Hemoglobin 27.7 pg (27.0-33.0); Mean Corpuscular Volume 86.3 fL (80.0-98.0); Mean Platelet Volume 10.1 fL (9.4-12.4); Monocytes Absolute Auto 0.7 X10*3/uL (0.1-1.2); Neutrophils Absolute Auto 6.7 x10*3/uL (2.0-8.3); Neutrophils Percent Auto 58.7 % (45-73); Platelet Count 283 X10*3/uL (160-400); Red Cell Distribution Width 13.1 % (11.0-16.0); White Blood Count 11.4 X10*3/uL (4.8-10.8)
[2023-07-09 11:25] LABS: Alanine Aminotransferase 25 U/L (0-40); Albumin Level 4.7 g/dL (3.5-5.0); Alkaline Phosphatase 151 U/L (39-117); Anion Gap 12 (12-20); Aspartate Amino Transferase 17 U/L (5-37); Bilirubin Total 0.5 mg/dL (0.0-1.0); Blood Urea Nitrogen 11 mg/dL (9-16); Calcium 9.9 mg/dL (8.4-10.2); Carbon Dioxide 30 mmol/L (22-29); Chloride 106 mmol/L (96-108); Cholesterol 174 mg/dL (<200); Estimated Glomerular Filt Rate > 60; Glucose Fasting 94 mg/dL (60-99); HDL Cholesterol 43 mg/dL (>40); LDL Cholesterol Calculated 115 mg/dL (<100); Potassium 4.7 mmol/L (3.3-5.1); Sodium 143 mmol/L (135-145); Total Protein 8.3 g/dL (6.5-8.0); Triglycerides 84 mg/dL (<150)
[2023-07-09 11:31] LABS: Appearance Urine Clear; Color Urine Yellow; Glucose Urine UA Negative (Negative); Leukocyte Esterase Urine Small (1+) (Negative); Nitrite Urine Negative (Negative); Specific Gravity - Urine 1.015 (1.005-1.025); UMIC TRIGGER UACC YES; Urine Blood Negative (Negative); Urine Ketones Negative (Negative); Urine Protein Negative (Neg-Trace)
[2023-07-09 11:41] LABS: Prostate Specific Antigen 7.29 ng/mL (<0.05-4.0)
[2023-07-09 11:42] LABS: TSH reflex Free T4 1.15 uIU/mL (0.32-4.0); Vitamin D 25-OH Total 15.4 ng/mL (>30)
[2023-07-09 11:42] LABS: Bacteria Urine None Seen (None Seen); Hyaline Casts Urine 0-2 /LPF (0-2); RBC Urine 0-2 /HPF (0-2); Squamous Epithelial Cell Urine 0-2 /HPF (0-2); UACC Culture Trigger YES; WBC Urine 0-5 /HPF (0-5)
== END 2023-07-09 09:55 | disposition home or self-care (01) ==
LOC: HO.LAB 09:54
PROVIDERS: PCP Internal Medicine; Visit Provider Internal Medicine
DX: M54.50 Low back pain, unspecified (principal); E55.9 Vitamin D deficiency, unspecified; E78.00 Pure hypercholesterolemia, unspecified; N40.0 Benign prostatic hyperplasia without lower urinary tract symptoms; D64.9 Anemia, unspecified; Z12.5 Encounter for screening for malignant neoplasm of prostate; Z00.00 Encounter for general adult medical examination without abnormal findings
CPT/HCPCS: 36415; 72100; 80053; 80061; 81001; 82306; 84153; 84443; 85025; 87086

== ENCOUNTER → 2023-10-11 15:00 | Outpatient (BNVA) | payer OTHER, SELFPAY | PROVIDERS: PCP Internal Medicine; Visit Provider Nurse Practitioner Family ==

== ENCOUNTER → 2023-10-24 08:41 | Outpatient (BNVA) | payer OTHER, SELFPAY | PROVIDERS: PCP Internal Medicine; Referring Provider Nurse Practitioner Family; Visit Provider Nurse Practitioner Family | DX: Z01.811 Encounter for preprocedural respiratory examination (principal); J45.909 Unspecified asthma, uncomplicated | CPT/HCPCS: 99202 ==

== ENCOUNTER 2023-11-07 15:14 | Outpatient (AMB) | payer OTHER, SELFPAY ==
--- NOTE | 2023-11-07 15:16 | MHC.PC.OV ---
Vital Signs 11/07/23 15:19 Height 5 in Weight 193 lb 2 oz BMI 5430.7 BP 120/74 Blood Pressure Location Lt brachial Position Sitting Pulse 82 Pulse Source Pulse Oximeter Pulse Oximetry (%) 95 Oxygen Delivery Method Room Air Intake Visit Reasons: 4 month f/u Intake Note: Patient is here to follow up on Lower back pain, HTN, Asthma, Bipolar depression. Fundraising Officer Required: Yes Fundraising Officer Language: Anesthetist Name: Fabiana Kuo ([id number]) Information Interpreted: non-clinical & clinical Vice President Risk Management: Present Accompanied by: Sister Allergies No Known Allergies Allergy (Verified 11/07/23 15:52) Medication List - Last Reconciled 11/07/23 by Ha Little MD albuterol sulfate 90 mcg/actuation 2 puffs inhalation Q6H PRN 30 days albuterol sulfate 2.5 mg (3 mL) inhalation Q4-6H PRN amlodipine 5 mg PO DAILY 30 days bisacodyl (Dulcolax (bisacodyl)) 20 mg (4 x 5 mg) PO ONCE 1 day cholecalciferol (vitamin D3) 50 mcg PO DAILY 90 days fluticasone propion-salmeterol 115-21 mcg/actuation (Advair HFA) 2 puffs inhalation Q12H melatonin 5 mg PO BID 30 days olanzapine 15 mg PO DAILY 30 days polyethylene glycol 3350 (Miralax) 238 grams PO ONCE trazodone 50 mg PO BEDTIME PRN 30 days Tobacco use date assessed: 11/07/23 Dental Screening Dental Screen Date: 07/05/23 HPI 4 month f/u HPI Details Patient comes in today for his follow up visit States that he continues to experience increased pain over his lower back and he would like to get something to help with his back pain Would also like to know how his back x-rays done a few months ago came out He denies any headaches or dizziness Denies any chest pains, no SOB No nausea/vomiting, no abdominal pain No change in bowel habits noted He reports that he has been experiencing some urinary frequency for a while now but denies any dysuria Would like to know how his labs done a few months ago came out [facility] Medical History (Updated 11/07/23 @ 17:15 by Ha Little MD) Elevated PSA Renal calculus, left Intellectual disability Obesity (BMI 30-39.9) Vitamin D deficiency Insomnia Benign essential hypertension Bipolar depression Asthma Surgical History No pertinent past surgical history Family History Other Family history unknown Social History Housing: House Alcohol intake: never Patient Tobacco Use Status: Never used Tobacco e-Cigarette/Vaping Use: Never Used Second Hand Smoke Exposure: No service: No Current occupational status: disabled Cognitive needs: No Hearing needs: Yes Vision needs: Yes Questionnaire Thrive Questionnaire Date Thrive assessed: 07/05/23 ANJELICA-7 AMB Questionnaire ANJELICA-7 Date ANJELICA - 7 assessed: 07/05/23 Source: Developed by Drs. Ayo Ramirez, Jocelyn Mireles, Adriel Hugo and colleagues, with an educational anil from [place]. Review of Systems Const Denies chills, Denies fatigue, Denies fever(s) and Denies headache(s) ENT Denies dysphagia, Denies dizziness, Denies otalgia, Denies headache(s), Denies neck pain, Denies odynophagia and Denies sore throat Card Denies chest pain, Denies palpitations and Denies dyspnea Resp Denies cough and Denies dyspnea GI Denies abdominal pain, Denies constipation, Denies dysphagia, Denies heartburn, Denies diarrhea, Denies nausea, Denies odynophagia and Denies vomiting Denies hematuria, Denies dysuria, Denies nocturia and Reports urinary frequency (recently) Musc Reports back pain (over the lower back) and Denies neck pain Skin/Breast Denies rash Neuro Denies dizziness and Denies headache(s) Endo Denies fatigue and Denies palpitations Physical exam (Primary Care) Vital Signs: Last Vital Signs Pulse 82 11/07/23 15:19 BP 120/74 11/07/23 15:19 Pulse Ox 95 11/07/23 15:19 Oxygen Delivery Method Room Air 11/07/23 15:19 BMI result Body Mass Index 5430.7 Tobacco/Smoking Status: Tobacco use Status Tobacco use date assessed 11/07/23 11/07/23 15:22 Patient Tobacco Use Status Never used Tobacco 11/07/23 15:22 e-Cigarette/Vaping Use Never Used 11/07/23 15:22 Thrive Assessment: Date of Thrive Assessment Date Thrive assessed 07/05/23 11/07/23 15:22 Const General: no acute distress and alert HENMT Ears: TM's normal bilaterally and EAC's normal Throat: Yes posterior oropharynx normal and Yes tonsils normal (no TP congestion) Neck Neck: Yes no lymphadenopathy and Yes supple Thyroid: Thyroid normal Resp Auscultation: clear to auscultation bilaterally, no rales and no wheezes Cardio Rate: regular rate Rhythm: regular rhythm Heart sounds: no murmurs GI Palpation (GI): Soft to palpation and nontender Auscultation: normal bowel sounds General: Yes no CVA tenderness Back/Spine/Pelvis Back: no CVA tenderness Thoracic/Lumbar Spine: straight leg raise negative bilaterally and lumbar spinal tenderness Skin Rashes: no rashes Extrem General: Yes no clubbing, cyanosis or edema Results Reviewed Results Reviewed: Laboratory Tests 07/09/23 07/09/23 10:08 10:10 WBC 11.4 H Hgb 16.6 Hct 51.8 Plt Count 283 Sodium 143 Potassium 4.7 Creatinine 0.87 Estimated GFR > 60 Fasting Glucose 94 Calcium 9.9 AST 17 ALT 25 Triglycerides 84 Cholesterol 174 LDL Cholesterol, Calc 115 H HDL Cholesterol 43 Prostate Specific Ag 7.29 H 25-OH Vitamin D Total 15.4 L TSH 1.15 Ur Specific [place] 1.015 Urine Protein Negative Urine Glucose (UA) Negative Urine Blood Negative Urine Nitrite Negative Ur Leukocyte Esterase Small (1+) H Assessment and Plan Assessment & Plan (1) Low back pain: Code(s): M54.50 - Low back pain, unspecified Qualifiers: Chronicity: unspecified Back pain laterality: midline Sciatica presence: without sciatica Qualified Code(s): M54.50 - Low back pain, unspecified Plan: Reinforced activity and weight-lifting restrictions to avoid aggravating his back pain Lumbar spine x-rays done in July 2023 revealed (+) multilevel mild lumbar spondylosis and mild degenerative disc disease at L3-L4 through L5-S1 A left renal calculus is also seen incidentally, and this can be more fully evaluated with a dedicated renal ultrasound Will go ahead and start the patient on Tizanidine 4 mg TID PRN to help with his low back pain Have offered to refer him to Pain Management as well but patient declined - states that he will consider this and call back for referral if he decides to go to pain management (2) Elevated PSA: Code(s): R97.20 - Elevated prostate specific antigen [PSA] Plan: Results of his labs done nack in July 2023 reviewed and discussed with patient He is advised that his PSA level was elevated on his labs done a few months ago With his reported urinary frequency, have advised him that this is most likely due to prostate hypertrophy Will go ahead and refer him to Urology for further evaluation and management (3) Renal calculus, left: Code(s): N20.0 - Calculus of kidney Plan: (+) left renal calculus is seen incidentally on his lumbar spine x-rays done in July 2023 Will send patient for renal ultrasound for further evaluation (4) Vitamin D deficiency: Code(s): E55.9 - Vitamin D deficiency, unspecified Plan: Patient is advised that his Vitamin D level was low on his labs done a few months ago Continue Vitamin D3 2000 units QD (5) Benign essential hypertension: Code(s): I10 - Essential (primary) hypertension Plan: Reinforced low sodium diet - goal is systolic BP of 120 mm or less Continue Amlodipine 5 mg QD (6) Cardiac murmur: Code(s): R01.1 - Cardiac murmur, unspecified Plan: Echocardiogram done a few months ago revealed normal left ventricular size, thickness, systolic function, and wall motion. The visually estimated ejection fraction is between 55-60%.? Diastolic function is normal for age. Mildly increased right ventricular cavity size.? There is normal right ventricular systolic function. The right atrium is mildly dilated. There is trace MR and trace TR noted, which are most likely the source of his audible cardiac murmur (7) Asthma: Code(s): J45.909 - Unspecified asthma, uncomplicated Qualifiers: Asthma severity: unspecified severity Asthma persistence: unspecified Asthma complication type: uncomplicated Qualified Code(s): J45.909 - Unspecified asthma, uncomplicated Plan: Controlled/stable; continue Albuterol HFA 2 inhalations Q 6 hours PRN (8) Insomnia: Code(s): G47.00 - Insomnia, unspecified Qualifiers: Insomnia type: unspecified Qualified Code(s): G47.00 - Insomnia, unspecified Plan: Sleep hygiene impractical given patient's current psychiatric issues Continue Trazodone 50 mg Q HS and Melatonin 5 mg 1 tablets Q HS - he is reportedly sleeping well and has less sedation the following morning when his Melatonin was lowered from 2 tablets to 1 tablet Q HS (9) Intellectual disability: Code(s): F79 - Unspecified intellectual disabilities Plan: Patient reportedly had some tests and imaging studies done at [facility] last year (2022) and was advised that he has cognitive defects due to some abnormalities on his head scan Have tried to obtain copies of these from [facility] for review but we have not yet received any information or correspondence from them so far (10) Bipolar depression: Code(s): F31.9 - Bipolar disorder, unspecified Plan: Continue Olanzapine 15 mg QD Patient has been referred to psychiatry for further evaluation and management previously but states that he has not yet been seen by psychiatry although he has been following up with a therapist regularly every couple of weeks for a while now Referral to psychiatry was redone at his last visit - he is to follow-up with psychiatry as scheduled once he is established (11) Obesity (BMI 30-39.9): Code(s): E66.9 - Obesity, unspecified Plan: Reinforced diet; exercise and weight loss may be unrealistic given patient's psychiatric and cognitive issues but he is still encouraged to try to get some exercise and increase his physical activity as often and as much as he can Plan Follow up in 4 months Orders: Orders US renal BI Today N20.0 - Calculus of kidney Referrals Urology Referral R35.0 - Frequency of micturition, R97.20 - Elevated prostate specific antigen [PSA] Medications: New tizanidine 4 mg PO Q8H 30 days PRN 90 tabs 0RF low back pain Coding Level of Care Code Est Pt Level 4 (73758) Diagnoses Midline low back pain without sciatica, unspecified chronicity M54.50 Chronicity: unspecified Back pain laterality: midline Sciatica presence: without sciatica Elevated PSA R97.20 Renal calculus, left N20.0 Vitamin D deficiency E55.9 Benign essential hypertension I10 Cardiac murmur R01.1 Uncomplicated asthma, unspecified asthma severity, unspecified whether persistent J45.909 Asthma severity: unspecified severity Asthma persistence: unspecified Asthma complication type: uncomplicated Insomnia, unspecified type G47.00 Insomnia type: unspecified Intellectual disability F79 Bipolar depression F31.9 Obesity (BMI 30-39.9) E66.9
[2023-11-07 15:19] VITALS: BP 120/74; PULSE 82; O2SAT 95; BMI 5430.7
== END 2023-11-07 16:06 | disposition home or self-care (01) ==
PROVIDERS: PCP Internal Medicine; Visit Provider Internal Medicine
DX: M54.50 Low back pain, unspecified (principal); R97.20 Elevated prostate specific antigen [PSA]; N20.0 Calculus of kidney; F31.9 Bipolar disorder, unspecified; E55.9 Vitamin D deficiency, unspecified; I10 Essential (primary) hypertension; R01.1 Cardiac murmur, unspecified; J45.909 Unspecified asthma, uncomplicated; G47.00 Insomnia, unspecified; F79 Unspecified intellectual disabilities; E66.9 Obesity, unspecified
CPT/HCPCS: 99214

== ENCOUNTER 2023-11-10 16:10 | Outpatient (REF) | payer OTHER, SELFPAY ==
--- NOTE | ~2023-11-10 | US_ITS ---
EXAMINATION: US RETROPERITONEAL LIMITED (RENAL ONLY) CLINICAL INFORMATION: Calculus of kidney. COMPARISON: Lumbar spine 07/09/2023 TECHNIQUE: Real-time imaging of the kidneys. FINDINGS: RIGHT KIDNEY: 10.7 x 5.3 x 5.5 cm (SAG x AP x TRV). The kidney is normal in size, contour, and echogenicity. Renal cortical thickness is normal. No renal calculi or hydronephrosis. A benign lower pole 1.3 cm Bosniak class I renal cyst is noted which requires no additional imaging or follow up. No solid renal masses are seen. LEFT KIDNEY: 12.6 x 6.0 x 3.8 cm (SAG x AP x TRV). The kidney is normal in size, contour, and echogenicity. Renal cortical thickness is normal. There is a lower pole 1.5 x 0.9 x 1.8 cm echogenic focus seen with twinkle artifact suggestive of a stone which can also be seen on the lumbar spine radiographs. No focal parenchymal lesions or hydronephrosis. US/US renal BI IMPRESSION: Nonobstructing 1.8 cm left lower pole renal calculus.
== END 2023-11-10 16:11 | disposition home or self-care (01) ==
LOC: HO.US 16:10
PROVIDERS: PCP Internal Medicine; Visit Provider Internal Medicine
DX: N20.0 Calculus of kidney (principal)
CPT/HCPCS: 76775

== ENCOUNTER 2023-11-18 11:16 | Outpatient (REF) | payer OTHER, SELFPAY ==
[2023-11-18 16:56] LABS: Urine Cytology See Pathology rpt
== END 2023-11-18 11:17 | disposition home or self-care (01) ==
LOC: HO.LNP 11:16
PROVIDERS: PCP Internal Medicine; Visit Provider Urology
DX: R97.20 Elevated prostate specific antigen [PSA] (principal); R35.0 Frequency of micturition; N20.0 Calculus of kidney
CPT/HCPCS: 81003; 88112; 99202

== ENCOUNTER 2023-11-18 11:16 | Outpatient (AMB) | payer OTHER, SELFPAY ==
--- NOTE | 2023-11-18 11:17 | MHC.OFFVIS ---
Intake Visit Reasons: Elevated PSA Intake Note: Patient is present for elevated PSA Urology Medication:none Antibiotic Allergy:none Blood Thinner:none Marketing Consultant Required: Yes Marketing Consultant Name: [id number] Information Interpreted: non-clinical & clinical Allergies No Known Allergies Allergy (Verified 12/26/23 08:42) HPI Comments Details: Lorenzo is a 58-year-old [place]ene[place]in-speaking male who is here for evaluation due to elevated PSA. He is here with his sister. box toe stitcher services used. The patient was seen by his PCP with complaints of back pain. Renal ultrasound was ordered. I have reviewed imaging. Final radiology report pending. Images suggest a left kidney stone. Urinalysis is significant for microscopic hematuria. Comorbidity history of nicotine use (patient states he smoked for about 4-5 years and quit over 10 years ago.) I have discussed further evaluation with CT urogram, repeat PSA and follow-up office cystoscopy. PSA--07/09/2023--7.29 [facility] Medical History (Updated 11/07/23 @ 17:15 by aH Little MD) Elevated PSA Renal calculus, left Intellectual disability Obesity (BMI 30-39.9) Vitamin D deficiency Insomnia Benign essential hypertension Bipolar depression Asthma Surgical History No pertinent past surgical history Family History Other Family history unknown Social History (Updated 11/28/23 @ 09:00 by Dara Shelley CMA) Housing: House Alcohol intake: never Patient Tobacco Use Status: Former Tobacco user e-Cigarette/Vaping Use: Never Used Second Hand Smoke Exposure: No service: No Current occupational status: disabled Cognitive needs: No Hearing needs: Yes Vision needs: Yes Review of Systems Const All systems reviewed & are unremarkable except as noted in HPI and below Reports no additional complaints Eyes Reports no additional complaints ENT Reports no additional complaints Card Reports no additional complaints Resp Reports no additional complaints GI Reports no additional complaints Reports as per HPI Musc Reports no additional complaints Skin/Breast Reports system reviewed and no additional complaints, except as documented Neuro Reports no additional complaints Psych Reports no additional complaints Endo Reports no additional complaints Benjamín/Lymph Reports no additional complaints Aller/Immun Reports no additional complaints Physical Exam Const General: healthy appearing, no acute distress and well developed Orientation/consciousness: patient oriented x3 HEENT Head: Yes normocephalic and Yes atraumatic Eyes Conjunctivae: conjunctivae normal Neck Neck: Yes normal visual inspection Chest Chest palpation & inspection: normal inspection of the chest Resp Effort & Inspection: normal respiratory effort Cardio Rate: regular rate GI Inspection: Yes normal to inspection Skin General skin exam: no rashes or lesions noted Neuro General: patient oriented x3 Extrem General: No pedal edema Psych Appearance: grossly normal Affect: normal affect Results AMB Urinalysis, Automated UA Leukoctes 70 Dipika/uL Last Edit by JES Juarez on 11/18/23 11:27 UA Nitrite Negative Last Edit by Zachery Álvarez CCM on 11/18/23 11:27 UA Urobilinogen 0.2 mg/dL Last Edit by Zachery Álvarez CCM on 11/18/23 11:27 UA Protein 15 mg/dL Last Edit by Zachery Álvarez CCM on 11/18/23 11:27 UA pH 6.0 Last Edit by Zachery Álvarez CCM on 11/18/23 11:27 UA Blood 25 Sotero/uL Last Edit by Zachery Álvarez CCM on 11/18/23 11:27 UA Specific [place] 1.025 Last Edit by JES Juarez on 11/18/23 11:27 UA Ketone Negative Last Edit by Zachery Álvarez CCM on 11/18/23 11:27 UA Bilirubin 0 mg/dL Last Edit by Zachery Álvarez CCM on 11/18/23 11:27 UA Glucose 0 mg/dL Last Edit by Zachery Álvarez [facility] on 11/18/23 11:27 Results Reviewed Results Reviewed: Laboratory Last Values Urine pH (Auto) 6.0 11/18/23 11:26 Specific [place] (Auto) 1.025 11/18/23 11:26 Urine Protein (Auto) 15 mg/dL 11/18/23 11:26 Glucose (UA)(Auto) 0 mg/dL 11/18/23 11:26 Urine Ketones (Auto) Negative 11/18/23 11:26 Urine Blood (Auto) 25 Sotero/uL 11/18/23 11:26 Urine Nitrite (Auto) Negative 11/18/23 11:26 Urine Bilirubin (Auto) 0 mg/dL 11/18/23 11:26 Urine Urobilinogen (Auto) 0.2 mg/dL 11/18/23 11:26 Leukocyte Esterase (Auto) 70 Dipika/uL 11/18/23 11:26 Assessment & Plan Assessment & Plan (1) Elevated PSA: Code(s): R97.20 - Elevated prostate specific antigen [PSA] Category: Medical (2) Urinary frequency: Code(s): R35.0 - Frequency of micturition Category: Medical (3) Renal calculus, left: Code(s): N20.0 - Calculus of kidney Category: Medical Plan CT urogram Urine for cytology Repeat PSA Follow-up office cystoscopy Orders: Orders AMB Urinalysis Automated 11/18/23 Z13.9 - Encounter for screening, unspecified Urine Cytology 11/18/23 R35.0 - Frequency of micturition Coding Level of Care Code New Pt Level 4 (14234) Diagnoses Elevated PSA R97.20 Urinary frequency R35.0 Renal calculus, left N20.0
== END 2023-11-18 11:54 | disposition home or self-care (01) ==
PROVIDERS: PCP Internal Medicine; Visit Provider Urology
DX: R97.20 Elevated prostate specific antigen [PSA] (principal); R35.0 Frequency of micturition; N20.0 Calculus of kidney
CPT/HCPCS: 99204

== ENCOUNTER 2023-11-28 08:53 | Outpatient (AMB) | payer OTHER, SELFPAY ==
--- NOTE | 2023-11-27 11:51 | A.OFFVIS_ITS ---
Vital Signs 11/28/23 08:57 Height 5 ft 5 in Weight 191 lb 12.835 oz BMI 31.9 BP 124/68 Blood Pressure Location Rt brachial Position Sitting Pulse 76 Pulse Source Pulse Oximeter Pulse Oximetry (%) 95 Oxygen Delivery Method Room Air Intake Visit Reasons: Asthma Allergies No Known Allergies Allergy (Verified 11/28/23 09:00) HPI HPI Asthma: Details: Lorenzo is a pleasant 58 year old male, never smoker, with underlying asthma, HTN and intellectual disability. He was initially referred for preoperative pulmonary evaluation for proposed colonscopy which is scheduled 03/2024. He is accompanied by his [id number]. At baseline, he has been poorly controlled on albuterol PRN, using BID. At the last visit, patient was prescribed prednisone as well as a nebulizer with albuterol as patient with significant wheezing on exam. He was also switched from albuterol MDI to Advair. Since the last visit he reports improvements in symptoms, however he continues to report wheezing and dyspnea. He denies any visits to urgent care or hospitalizations since the last visit. It was noted that patient states he has been using medication regimen as prescribed, however has difficulties with compliance. [facility] Medical History (Updated 11/07/23 @ 17:15 by Ha Little MD) Elevated PSA Renal calculus, left Intellectual disability Obesity (BMI 30-39.9) Vitamin D deficiency Insomnia Benign essential hypertension Bipolar depression Asthma Surgical History No pertinent past surgical history Family History Other Family history unknown Social History (Updated 11/28/23 @ 09:00 by Dara Shelley CMA) Housing: House Alcohol intake: never Patient Tobacco Use Status: Former Tobacco user e-Cigarette/Vaping Use: Never Used Second Hand Smoke Exposure: No service: No Current occupational status: disabled Cognitive needs: No Hearing needs: Yes Vision needs: Yes Review of Systems Const Denies chills, Denies excessive sweating, Denies fever(s), Denies headache(s) and Denies night sweats Eyes Denies dry eyes, Denies irritation and Denies itchy eyes ENT Reports Normal hearing present, Denies headache(s), Denies nasal congestion, Denies nasal discharge, Denies post nasal drip and Denies sore throat Card Denies chest pain, Denies chest pain at rest, Denies chest pain with activity, Denies claudication, Denies leg edema, Denies dyspnea, Denies dyspnea on exertion, Denies orthopnea and Denies paroxysmal nocturnal dyspnea Resp Denies chest congestion, Reports cough, Denies excessive phlegm production, Denies pain on inspiration, Denies pain with cough, Denies dyspnea, Denies dyspnea on exertion, Denies stridor and Reports wheezing Musc Denies myalgias Neuro Reports Normal hearing present and Denies headache(s) Endo Denies excessive sweating Benjamín/Lymph Denies lymphadenopathy Aller/Immun Denies itchy eyes, Denies seasonal rhinorrhea and Reports wheezing Physical Exam Vital Signs: Last Vital Signs Pulse 76 11/28/23 08:57 BP 124/68 11/28/23 08:57 Pulse Ox 95 11/28/23 08:57 Oxygen Delivery Method Room Air 11/28/23 08:57 BMI result Body Mass Index 31.9 Const General: cooperative, healthy appearing, comfortable, no acute distress, well developed and alert Nutritional Appearance: obese Orientation/consciousness: patient oriented x3 HEENT Head: Yes normal to inspection, Yes normocephalic and Yes atraumatic Ears: hearing grossly normal bilaterally and external ears normal Eyes General: appearance normal, both eyes and all related structures Eyelids: Yes eyelids normal Sclerae: sclerae normal EOM: EOMs intact bilaterally Neck Neck: Yes normal visual inspection and Yes no lymphadenopathy Lymphatic: no lymphadenopathy noted Chest Chest palpation & inspection: normal inspection of the chest Resp Other: moderate expiratory wheezes throughout, mildly improved with duoneb Effort & Inspection: normal respiratory effort, able to speak in complete sentences, no cough, no stridor, not tachypneic, no tripod positioning and no use of accessory muscles Auscultation: wheezes Cardio Jugular venous distension: no JVD Rate: regular rate Rhythm: regular rhythm Skin Other: warm, dry General skin exam: no rashes or lesions noted Neuro General: patient oriented x3 Cranial nerves: Yes Normal hearing present Cognition (Neuro): normal cognition Gait exam (Neuro): Normal gait present Extrem General: Yes normal to inspection, Yes capillary refill normal, Yes no clubbing, cyanosis or edema and Yes no pedal edema Psych Appearance: grossly normal and well kempt Speech and movement: Normal speech and movement present and Clear speech present Affect: normal affect Attitude: cooperative Office Procedures Nebulizer Treatment Nebulizer Treatment [id number]/MDI RX initial, or Nebulizer Subsequent Treatment Office Meds ipratropium 0.5 mg-albuterol 3 mg (2.5 mg base)/3 mL nebulization soln Performing Provider: Yvonne Askew NP Performing Location: [facility] Administered by: Deanna Figueredo LPN on 11/28/23 09:13 Dose Route Admin Location Dispensed Lot Number Expiration Date ND Color Repairer 3 mL inhalation 3 mL [id number] 08/29/25 89996-955-23 [facility] Assessment & Plan Assessment & Plan (1) Asthma: Code(s): J45.909 - Unspecified asthma, uncomplicated Category: Medical Qualifiers: Asthma complication type: uncomplicated Asthma persistence: unspecified Asthma severity: unspecified severity Qualified Code(s): J45.909 - Unspecified asthma, uncomplicated Plan On exam patient with moderate expiratory wheezes throughout, mildly improved with DuoNeb. Will treat patient for exacerbation with prednisone and discussed importance of compliance with Advair as well as using nebulizer on a daily basis. He was also given a spacer in office today. If patient endorses compliance at next visit, as brother in law states patient is not 100 % compliant with regimen,will increase Advair to 230mcg. All questions were answered and patient is in agreement of plan. Will follow up in 4 weeks or sooner if needed. Orders: Orders AMB Nebulizer Treatment Today J45.909 - Unspecified asthma, uncomplicated Medications: New prednisone see taper instructions; 40 mg Daily x3 days, 30 mg daily x3 days, 20 mg daily x3 days, 10 mg daily x3 days 10 mg PO DIRECTED 30 tabs 0RF Coding Level of Care Code Est Pt Level 4 (78134) Diagnoses Uncomplicated asthma, unspecified asthma severity, unspecified whether persistent J45.909 Asthma complication type: uncomplicated Asthma persistence: unspecified Asthma severity: unspecified severity CPT Codes Nebulizer Treatment - Nebulizer Treatment, initial or subsequent: [id number]- Nebulizer/MDI RX initial, or Nebulizer Subsequent Treatment ([id number])
[2023-11-28 08:57] VITALS: BP 124/68; PULSE 76; O2SAT 95; BMI 31.9
== END 2023-11-28 09:24 | disposition home or self-care (01) ==
PROVIDERS: PCP Internal Medicine; Visit Provider Nurse Practitioner Family
DX: J45.909 Unspecified asthma, uncomplicated (principal)
CPT/HCPCS: 99214

== ENCOUNTER → 2023-11-28 08:53 | Outpatient (BNVA) | payer OTHER, SELFPAY | PROVIDERS: PCP Internal Medicine; Visit Provider Nurse Practitioner Family | DX: J45.909 Unspecified asthma, uncomplicated (principal) | CPT/HCPCS: 94640; 99212 ==

== ENCOUNTER 2023-12-26 08:35 | Outpatient (AMB) | payer OTHER, SELFPAY ==
--- NOTE | 2023-12-26 08:19 | MHC.OFFVIS ---
Vital Signs 12/26/23 08:38 Height 5 ft 5 in Weight 194 lb 0.108 oz BMI 32.3 BP 138/74 Blood Pressure Location Rt brachial Position Sitting Pulse 82 Pulse Source Pulse Oximeter Pulse Oximetry (%) 94 Oxygen Delivery Method Room Air Intake Visit Reasons: Asthma Allergies No Known Allergies Allergy (Verified 12/26/23 08:42) HPI HPI Asthma: Details: Lorenzo is a pleasant 58 year old male, never smoker, with underlying asthma, HTN and intellectual disability. He was initially referred for preoperative pulmonary evaluation for proposed colonscopy which will be scheduled 03/2024, however patient presented with poorly controlled asthma. At the last visit, patient reported noncompliance with medication regimen and continued with dyspnea and wheezing. Today patient notes compliant with Advair and using albuterol neb PRN. He denies any respiratory symptoms. Today he presents for a close follow up and is accompanied by his [id number]. He denies any visits to urgent care or hospitalizations since the last visit. [facility] Medical History (Updated 11/07/23 @ 17:15 by Ha Little MD) Elevated PSA Renal calculus, left Intellectual disability Obesity (BMI 30-39.9) Vitamin D deficiency Insomnia Benign essential hypertension Bipolar depression Asthma Surgical History No pertinent past surgical history Family History Other Family history unknown Social History (Updated 11/28/23 @ 09:00 by Dara Shelley CMA) Housing: House Alcohol intake: never Patient Tobacco Use Status: Former Tobacco user e-Cigarette/Vaping Use: Never Used Second Hand Smoke Exposure: No service: No Current occupational status: disabled Cognitive needs: No Hearing needs: Yes Vision needs: Yes Review of Systems Const Denies chills, Denies excessive sweating, Denies fever(s), Denies headache(s) and Denies night sweats Eyes Denies dry eyes, Denies irritation and Denies itchy eyes ENT Reports Normal hearing present, Denies headache(s), Denies nasal congestion, Denies nasal discharge, Denies post nasal drip and Denies sore throat Card Denies chest pain, Denies chest pain at rest, Denies chest pain with activity, Denies claudication, Denies leg edema, Denies dyspnea, Denies dyspnea on exertion, Denies orthopnea and Denies paroxysmal nocturnal dyspnea Resp Denies chest congestion, Denies cough, Denies excessive phlegm production, Denies pain on inspiration, Denies pain with cough, Denies dyspnea, Denies dyspnea on exertion, Denies stridor and Denies wheezing Musc Denies myalgias Neuro Reports Normal hearing present and Denies headache(s) Endo Denies excessive sweating Benjamín/Lymph Denies lymphadenopathy Aller/Immun Denies itchy eyes, Denies seasonal rhinorrhea and Denies wheezing Physical Exam Vital Signs: Last Vital Signs Pulse 82 12/26/23 08:38 BP 138/74 12/26/23 08:38 Pulse Ox 94 12/26/23 08:38 Oxygen Delivery Method Room Air 12/26/23 08:38 BMI result Body Mass Index 32.3 Const General: cooperative, healthy appearing, comfortable, no acute distress, well developed and alert Nutritional Appearance: obese Orientation/consciousness: patient oriented x3 Limitations: no limitations HEENT Head: Yes normal to inspection, Yes normocephalic and Yes atraumatic Ears: hearing grossly normal bilaterally and external ears normal Eyes General: appearance normal, both eyes and all related structures Eyelids: Yes eyelids normal Sclerae: sclerae normal EOM: EOMs intact bilaterally Neck Neck: Yes normal visual inspection and Yes no lymphadenopathy Lymphatic: no lymphadenopathy noted Chest Chest palpation & inspection: normal inspection of the chest Resp Effort & Inspection: normal respiratory effort, able to speak in complete sentences, no audible wheezes, no cough, no stridor, not tachypneic, no tripod positioning and no use of accessory muscles Auscultation: clear to auscultation bilaterally Cardio Jugular venous distension: no JVD Rate: regular rate Rhythm: regular rhythm Skin Other: warm, dry General skin exam: no rashes or lesions noted Neuro General: patient oriented x3 Cranial nerves: Yes Normal hearing present Cognition (Neuro): normal cognition Gait exam (Neuro): Normal gait present Extrem General: Yes normal to inspection, Yes capillary refill normal, Yes no clubbing, cyanosis or edema and Yes no pedal edema Psych Appearance: grossly normal and well kempt Speech and movement: Normal speech and movement present and Clear speech present Affect: normal affect Attitude: cooperative Thought process: Normal thought process present Thought content: Normal thought content present Insight: Good insight present (Psych) Judgement: Good judgement present (Psych) Assessment & Plan Assessment & Plan (1) Asthma: Code(s): J45.909 - Unspecified asthma, uncomplicated Category: Medical Qualifiers: Asthma complication type: uncomplicated Asthma persistence: unspecified Asthma severity: unspecified severity Qualified Code(s): J45.909 - Unspecified asthma, uncomplicated Plan Patient reports good control of respiratory symptoms on Advair and albuterol neb PRN. Advised to continue. Now that patient with better control of asthma, will attempt PFT to further risk stratify for proposed colonscopy in March. All questions were answered and patient is in agreement of plan. Will follow up to review PFT or sooner if needed. Orders: Orders PFT pulmonary function test Today J45.909 - Unspecified asthma, uncomplicated Medications: Refilled albuterol sulfate 2.5 mg (3 mL) inhalation Q4-6H PRN 90 mL 2RF shortness of breath or wheezing fluticasone propion-salmeterol 115-21 mcg/actuation (Advair HFA) 2 puffs inhalation Q12H 12 grams 6RF Coding Level of Care Code Est Pt Level 3 (24861) Diagnoses Uncomplicated asthma, unspecified asthma severity, unspecified whether persistent J45.909 Asthma complication type: uncomplicated Asthma persistence: unspecified Asthma severity: unspecified severity
[2023-12-26 08:38] VITALS: BP 138/74; PULSE 82; O2SAT 94; BMI 32.3
== END 2023-12-26 08:57 | disposition home or self-care (01) ==
PROVIDERS: PCP Internal Medicine; Visit Provider Nurse Practitioner Family
DX: J45.909 Unspecified asthma, uncomplicated (principal)
CPT/HCPCS: 99213

== ENCOUNTER → 2023-12-26 08:35 | Outpatient (BNVA) | payer OTHER, SELFPAY | PROVIDERS: PCP Internal Medicine; Visit Provider Nurse Practitioner Family | DX: J45.909 Unspecified asthma, uncomplicated (principal) | CPT/HCPCS: 99212 ==

== ENCOUNTER 2023-12-30 08:17 | Outpatient (REF) | payer OTHER, SELFPAY ==
[2023-12-30 10:14] LABS: Prostate Specific Antigen 8.25 ng/mL (<0.05-4.0)
== END 2023-12-30 08:18 | disposition home or self-care (01) ==
LOC: HO.LAB 08:17
PROVIDERS: PCP Internal Medicine; Visit Provider Urology
DX: R97.20 Elevated prostate specific antigen [PSA] (principal); Z12.5 Encounter for screening for malignant neoplasm of prostate
CPT/HCPCS: 36415; 84153

== ENCOUNTER 2024-01-09 14:09 | Outpatient (AMB) | payer OTHER, SELFPAY ==
--- NOTE | 2024-01-09 15:00 | MHC.OFFVIS ---
Intake Visit Reasons: cysto/CT/PSA Intake Note: Patient is Present for FU- PSA Urology Med: None Antibiotic Allergy: None Blood Thinner: None Recent PSA- 12/30/23- 8.25 Last PSA- . Motion Picture Critic Required: Yes Motion Picture Critic Language: Grain Elevator Superintendent Services: Motion Picture Critic Present Allergies No Known Allergies Allergy (Verified 02/17/24 15:09) Medication List - Last Reconciled 01/09/24 by Jj Oh MD albuterol sulfate 90 mcg/actuation 2 puffs inhalation Q6H PRN 30 days albuterol sulfate 2.5 mg (3 mL) inhalation Q4-6H PRN amlodipine 5 mg PO DAILY 30 days bisacodyl (Dulcolax (bisacodyl)) 20 mg (4 x 5 mg) PO ONCE 1 day cholecalciferol (vitamin D3) 50 mcg PO DAILY 90 days fluticasone propion-salmeterol 115-21 mcg/actuation (Advair HFA) 2 puffs inhalation Q12H melatonin 5 mg PO BID 30 days olanzapine 15 mg PO DAILY 30 days polyethylene glycol 3350 (Miralax) 238 grams PO ONCE tizanidine 4 mg PO Q8H PRN 30 days trazodone 50 mg PO BEDTIME PRN 30 days HPI Comments Details: 01/09/24-- Lorenzo is here with his brother for fu elevated PSA and microscopic hematuria, LV 11/18/23 - renal US left renal stone. repeat PSA --12/30/23--8.25. Discussed treatment plan prostate biopsy and cystoscopy. I have discussed further evaluation with CT urogram, Plan prostate bx and cystoscopy to be scheduled in the OR. 11/18/23--Lorenzo is a 58-year-old Persian-speaking male who is here for evaluation due to elevated PSA. He is here with his sister. driver engineer services used. The patient was seen by his PCP with complaints of back pain. Renal ultrasound was ordered. I have reviewed imaging. Final radiology report pending. Images suggest a left kidney stone. Urinalysis is significant for microscopic hematuria. Comorbidity history of nicotine use (patient states he smoked for about 4-5 years and quit over 10 years ago.) PSA--07/09/2023--7.29 [facility] Medical History Elevated PSA Renal calculus, left Intellectual disability Obesity (BMI 30-39.9) Vitamin D deficiency Insomnia Benign essential hypertension Bipolar depression Asthma Surgical History No pertinent past surgical history Family History Other Family history unknown Social History (Reviewed 02/17/24 @ 15:09 by Dara Shelley [facility]) Housing: House Alcohol intake: never Patient Tobacco Use Status: Former Tobacco user e-Cigarette/Vaping Use: Never Used Second Hand Smoke Exposure: No service: No Current occupational status: disabled Cognitive needs: No Hearing needs: Yes Vision needs: Yes Review of Systems Const All systems reviewed & are unremarkable except as noted in HPI and below Reports no additional complaints Eyes Reports no additional complaints ENT Reports no additional complaints Card Reports no additional complaints Resp Reports no additional complaints GI Reports no additional complaints Reports as per HPI Musc Reports no additional complaints Skin/Breast Reports system reviewed and no additional complaints, except as documented Neuro Reports no additional complaints Psych Reports no additional complaints Endo Reports no additional complaints Benjamín/Lymph Reports no additional complaints Aller/Immun Reports no additional complaints Results Reviewed Results Reviewed: Date of Service: 11/10/23 US RETROPERITONEAL LIMITED (RENAL ONLY) CLINICAL INFORMATION: Calculus of kidney. COMPARISON: Lumbar spine 07/09/2023 TECHNIQUE: Real-time imaging of the kidneys. FINDINGS: RIGHT KIDNEY: 10.7 x 5.3 x 5.5 cm (SAG x AP x TRV). The kidney is normal in size, contour, and echogenicity. Renal cortical thickness is normal. No renal calculi or hydronephrosis. A benign lower pole 1.3 cm Bosniak class I renal cyst is noted which requires no additional imaging or follow up. No solid renal masses are seen. LEFT KIDNEY: 12.6 x 6.0 x 3.8 cm (SAG x AP x TRV). The kidney is normal in size, contour, and echogenicity. Renal cortical thickness is normal. There is a lower pole 1.5 x 0.9 x 1.8 cm echogenic focus seen with twinkle artifact suggestive of a stone which can also be seen on the lumbar spine radiographs. No focal parenchymal lesions or hydronephrosis. IMPRESSION: Nonobstructing 1.8 cm left lower pole renal calculus. Assessment & Plan Assessment & Plan (1) Hematuria: Code(s): R31.9 - Hematuria, unspecified Category: Medical (2) Renal calculus, left: Code(s): N20.0 - Calculus of kidney Category: Medical Plan renal US-11/10/23-- left renal stone. repeat PSA --12/30/23--8.25. Discussed treatment plan prostate biopsy and cystoscopy. I have discussed further evaluation with CT urogram, Plan prostate bx and cystoscopy to be scheduled in the OR. Orders: Orders CT urogram 01/09/24 R31.9 - Hematuria, unspecified AMB Urinalysis Automated 01/09/24 Z13.9 - Encounter for screening, unspecified Basic Metabolic Panel 01/09/24 R31.9 - Hematuria, unspecified Creatinine 01/09/24 R31.9 - Hematuria, unspecified Patient Instructions: The patient had an opportunity to ask questions regarding treatment plan. The patient expressed understanding and agreement with the above treatment plan. The patient is aware they should contact our office by phone for worsening of their current condition or the appearance of new symptoms. Compliance is encouraged with any medications and followup testing that is ordered. It is a privilege to be allowed the opportunity to participate in the urologic care of your patient. If you have any questions or concerns regarding treatment for the above conditions please do not hesitate to contact me. The office telephone contact is [phone]. This note is constructed in part using voice recognition software. While every effort has been made to ensure accuracy bathing suit maker errors may have been included. Yours sincerely, Jj Oh MD Coding Level of Care Code Est Pt Level 4 (60844) Diagnoses Hematuria R31.9 Renal calculus, left N20.0
== END 2024-01-09 16:21 | disposition home or self-care (01) ==
PROVIDERS: PCP Internal Medicine; Visit Provider Urology
DX: R31.9 Hematuria, unspecified (principal); N20.0 Calculus of kidney
CPT/HCPCS: 99214

== ENCOUNTER → 2024-01-09 14:09 | Outpatient (BNVA) | payer OTHER, SELFPAY | PROVIDERS: PCP Internal Medicine; Visit Provider Urology | DX: R31.29 Other microscopic hematuria (principal) | CPT/HCPCS: 99212 ==

== ENCOUNTER 2024-01-18 15:31 | Outpatient (AMB) | payer OTHER, SELFPAY ==
[2024-01-18 15:38] VITALS: BP 144/82; PULSE 90; O2SAT 94; BMI 32.0
--- NOTE | 2024-01-18 15:38 | A.OFFVIS_ITS ---
Vital Signs 01/18/24 15:38 Height 5 ft 5 in Weight 192 lb 3.889 oz BMI 32.0 BP 144/82 H Blood Pressure Location Lt brachial Position Sitting Pulse 90 Pulse Source Pulse Oximeter Pulse Oximetry (%) 94 Oxygen Delivery Method Room Air Intake Visit Reasons: 3 month follow up Intake Note: Lorenzo presents in office today for a scheduled 3 mos FUV. CC: Pt procedure was r/s to 03/2024. Pt reports that they have remained stable since their last visit. Pt denies any new sx or concerns at this time. Roast Master Required: No Roast Master Name: [id number] Dhiraj. Allergies No Known Allergies Allergy (Verified 01/18/24 15:39) HPI HPI 3 month follow up: Details: LAST VISIT: Colon cancer screening Plan Patient denies any GI, cardiac or respiratory symptoms.? Using inhalers and sometimes nebulizers at home. Denies any issues with anesthesia in the past.? Denies any history of sleep apnea, patient is obese, abdomen. No history infectious diseases in the past or present.? Not on any anticoagulation therapy.? No family or personal history of colon cancer or polyps.? Patient denies melena, hematochezia, unintentional weight loss or ribbon like stools.? Discussed at length the pre-procedure,? prep, diet & medications as well as what to expect prior, during and after the procedure.?? Stressed the importance of good bowel prep.? Recommended the use of Vaseline or Calmoseptine OTC & baby wipes with bowel movements to promote comfort.? ?Patient verbalizes understanding and agrees to plan of care.? He was given the opportunity to ask questions and all questions answered.? We will see him after the procedure.? Orders Referrals Pulmonology Referral J45.909, R06.09, R06.2 Medications New polyethylene glycol 3350 (Miralax) As directed by gastroenterology department at [facility] 238 grams PO ONCE 238 grams 0RF Z12.11 bisacodyl (Dulcolax (bisacodyl)) take 4 tabs at noon the day before your colonoscopy 20 mg (4 x 5 mg) PO ONCE 4 tabs 0RF 1 day Z12.11 TODAY'S VISIT Patient is accompanied today by his daughter. His daughter will be helping him with his prep. He is following up with pulmonology and will be scheduled for PFT sometimes in January. His colonoscopy scheduled for March. We will be discussing prep and clear liquid diet before procedure. [facility] Medical History Elevated PSA Renal calculus, left Intellectual disability Obesity (BMI 30-39.9) Vitamin D deficiency Insomnia Benign essential hypertension Bipolar depression Asthma Surgical History No pertinent past surgical history Family History Other Family history unknown Social History Housing: House Alcohol intake: never Patient Tobacco Use Status: Former Tobacco user e-Cigarette/Vaping Use: Never Used Second Hand Smoke Exposure: No service: No Current occupational status: disabled Cognitive needs: No Hearing needs: Yes Vision needs: Yes Review of Systems Const Denies weight gain and Denies weight loss ENT Reports no additional complaints, Denies dysphagia and Denies odynophagia Card Reports no additional complaints Resp Reports no additional complaints GI Denies abdominal pain, Denies belching, Denies melena, Denies bloating, Denies change in bowel habits, Denies dysphagia, Denies excessive flatus, Denies dyspepsia, Denies heartburn, Denies diarrhea, Denies loose stools, Denies nausea, Denies odynophagia and Denies vomiting Reports no additional complaints Musc Reports no additional complaints Neuro Reports no additional complaints Psych Reports no additional complaints Endo Reports no additional complaints Physical Exam Vital Signs: Last Vital Signs Pulse 90 01/18/24 15:38 BP 144/82 H 01/18/24 15:38 Pulse Ox 94 01/18/24 15:38 Oxygen Delivery Method Room Air 01/18/24 15:38 BMI result Body Mass Index 32.0 Const Nutritional Appearance: obese Orientation/consciousness: patient oriented x3 Limitations: other limitations (delayed mental development ) Resp Effort & Inspection: normal respiratory effort, able to speak in complete sentences, no tracheal deviation and symmetric chest movement Auscultation: clear to auscultation bilaterally Cardio Rate: regular rate GI Inspection: Yes normal to inspection and No distended Palpation (GI): Soft to palpation, not firm, nontender and No hepatosplenomegaly present Auscultation: normal bowel sounds General: Yes no CVA tenderness Back/Spine/Pelvis Back: no CVA tenderness Skin General skin exam: elasticity normal, turgor normal and dry skin Neuro General: patient oriented x3 Psych Appearance: grossly normal Mental Status: mental status grossly normal Assessment & Plan Assessment & Plan (1) Colon cancer screening: Code(s): Z12.11 - Encounter for screening for malignant neoplasm of colon Category: Medical Plan What to expect before during and after procedure discussed with patient and his daughter. Stressed the importance of good bowel prep and clear liquid diet day before procedure. Patient's daughter will be helping him with the procedure. 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 Please make sure to look in her note. Patient reports that now that he is taking his medication he is feeling much better. Denies having any shortness of breath. Patient denies any cardiac symptoms. Appointment already scheduled with us after procedure to discuss results. Both patient and his daughter are agreeable to plan of care and verbalizes understanding of instructions. They were given the opportunity to ask questions and all questions answered Thank you for allowing me to participate in his care Coding Level of Care Code Est Pt Level 3 (26439) Diagnoses Colon cancer screening Z12.11 Time Spent (min) 30 Comment 20 minutes spent with patient and additional 10 minutes spent reviewing his records
== END 2024-01-18 16:08 | disposition home or self-care (01) ==
PROVIDERS: PCP Internal Medicine; Visit Provider Nurse Practitioner Family
DX: Z01.818 Encounter for other preprocedural examination (principal); Z12.11 Encounter for screening for malignant neoplasm of colon
CPT/HCPCS: 99024

== ENCOUNTER → 2024-01-18 15:31 | Outpatient (BNVA) | payer OTHER, SELFPAY | PROVIDERS: PCP Internal Medicine; Visit Provider Nurse Practitioner Family | DX: Z12.11 Encounter for screening for malignant neoplasm of colon (principal) | CPT/HCPCS: 99212 ==

== ENCOUNTER 2024-02-17 15:02 | Outpatient (AMB) | payer OTHER, SELFPAY ==
[2024-02-17 15:04] VITALS: BP 128/70; PULSE 108; O2SAT 96; BMI 32.1
--- NOTE | 2024-02-17 15:04 | A.OFFVIS_ITS ---
Vital Signs 02/17/24 15:04 Height 5 ft 5 in Weight 193 lb 2 oz BMI 32.1 BP 128/70 Blood Pressure Location Lt brachial Position Sitting Pulse 108 H Pulse Source Pulse Oximeter Pulse Oximetry (%) 96 Oxygen Delivery Method Room Air Intake Visit Reasons: asthma/colonoscopy Fuel Cell Systems Engineer Required: Yes Fuel Cell Systems Engineer Language: Conveyor Mechanic Services: Fuel Cell Systems Engineer Present Fuel Cell Systems Engineer Name: Dara Chao Allergies No Known Allergies Allergy (Verified 02/17/24 15:09) HPI HPI asthma/colonoscopy: Details: Lorenzo is a pleasant 58 year old male, never smoker, with underlying asthma, HTN and intellectual disability. He was initially referred for preoperative pulmonary evaluation for proposed colonscopy which will be scheduled 03/2024, however patient consistently presented with poorly controlled asthma. Today he is accompanied by sister. She reports patient with intermittent dyspnea and dry cough. He continues to report using Advair once daily along with albuterol neb BID. He currently denies any respiratory symptoms.He denies any visits to urgent care or hospitalizations since the last visit. He has not required prednisone or antibiotics since October. He was scheduled for a PFT however it was canceled due to equipment failure. After further evaluation given patient's intellectual disability he would likely be unable to perform. [facility] Medical History Elevated PSA Renal calculus, left Intellectual disability Obesity (BMI 30-39.9) Vitamin D deficiency Insomnia Benign essential hypertension Bipolar depression Asthma Surgical History No pertinent past surgical history Family History Other Family history unknown Social History Housing: House Alcohol intake: never Patient Tobacco Use Status: Former Tobacco user e-Cigarette/Vaping Use: Never Used Second Hand Smoke Exposure: No service: No Current occupational status: disabled Cognitive needs: No Hearing needs: Yes Vision needs: Yes Review of Systems Const Denies chills, Denies excessive sweating, Denies fever(s), Denies headache(s) and Denies night sweats Eyes Denies dry eyes, Denies irritation and Denies itchy eyes ENT Reports Normal hearing present, Denies headache(s), Denies nasal congestion, Denies nasal discharge, Denies post nasal drip and Denies sore throat Card Denies chest pain, Denies chest pain at rest, Denies chest pain with activity, Denies claudication, Denies leg edema, Denies orthopnea and Denies paroxysmal nocturnal dyspnea Resp Denies chest congestion, Denies excessive phlegm production, Denies pain on inspiration, Denies pain with cough, Denies stridor and Denies wheezing Musc Denies myalgias Neuro Reports Normal hearing present and Denies headache(s) Endo Denies excessive sweating Benjamín/Lymph Denies lymphadenopathy Aller/Immun Denies itchy eyes, Denies seasonal rhinorrhea and Denies wheezing Physical Exam Vital Signs: Last Vital Signs Pulse 108 H 02/17/24 15:04 BP 128/70 02/17/24 15:04 Pulse Ox 96 02/17/24 15:04 Oxygen Delivery Method Room Air 02/17/24 15:04 BMI result Body Mass Index 32.1 Const General: cooperative, healthy appearing, comfortable, no acute distress, well developed and alert Nutritional Appearance: obese Orientation/consciousness: patient oriented x3 Limitations: no limitations HEENT Head: Yes normal to inspection, Yes normocephalic and Yes atraumatic Ears: hearing grossly normal bilaterally and external ears normal Eyes General: appearance normal, both eyes and all related structures Eyelids: Yes eyelids normal Sclerae: sclerae normal EOM: EOMs intact bilaterally Neck Neck: Yes normal visual inspection and Yes no lymphadenopathy Lymphatic: no lymphadenopathy noted Chest Chest palpation & inspection: normal inspection of the chest Resp Effort & Inspection: normal respiratory effort, able to speak in complete sentences, no audible wheezes, no cough, no stridor, not tachypneic, no tripod positioning and no use of accessory muscles Auscultation: clear to auscultation bilaterally Cardio Jugular venous distension: no JVD Rate: regular rate Rhythm: regular rhythm Skin Other: warm, dry General skin exam: no rashes or lesions noted Neuro General: patient oriented x3 Cranial nerves: Yes Normal hearing present Cognition (Neuro): normal cognition Gait exam (Neuro): Normal gait present Extrem General: Yes normal to inspection, Yes capillary refill normal, Yes no clubbing, cyanosis or edema and Yes no pedal edema Psych Appearance: grossly normal and well kempt Speech and movement: Normal speech and movement present and Clear speech present Affect: normal affect Attitude: cooperative Thought process: Normal thought process present Thought content: Normal thought content present Insight: Good insight present (Psych) Judgement: Good judgement present (Psych) Assessment & Plan Assessment & Plan (1) Asthma: Code(s): J45.909 - Unspecified asthma, uncomplicated Category: Medical Qualifiers: Asthma severity: unspecified severity Asthma persistence: unspecified Asthma complication type: uncomplicated Qualified Code(s): J45.909 - Unspecified asthma, uncomplicated Plan Although patient reports good control of respiratory symptoms on Advair, he has only been using once daily. His sister is accompanying him today who manages medications and is aware of frequency. Will adjust regimen. At this time, his respiratory exam is unremarkable. He has not had any evaluations through urgent care/hospitalizations in the last three months. He has not required prednisone or antibiotics. Unfortunately, given his intellectual disability, will unlikely be able to perform spirometry/PFT. At this time, patient would be low to intermediate risk for pulmonary complications for proposed colonoscopy. Consider using bronchodilators in the perioperative period. All questions were answered and patient is in agreement of plan. Will follow up in 3 months or sooner if needed. Coding Level of Care Code Est Pt Level 3 (51049) Diagnoses Uncomplicated asthma, unspecified asthma severity, unspecified whether persistent J45.909 Asthma severity: unspecified severity Asthma persistence: unspecified Asthma complication type: uncomplicated
== END 2024-02-17 15:32 | disposition home or self-care (01) ==
PROVIDERS: PCP Internal Medicine; Visit Provider Nurse Practitioner Family
DX: J45.909 Unspecified asthma, uncomplicated (principal)
CPT/HCPCS: 99213

== ENCOUNTER → 2024-02-17 15:02 | Outpatient (BNVA) | payer OTHER, SELFPAY | PROVIDERS: PCP Internal Medicine; Visit Provider Nurse Practitioner Family | DX: J45.909 Unspecified asthma, uncomplicated (principal) | CPT/HCPCS: 99212 ==

== ENCOUNTER 2024-03-07 08:06 | Day surgery (SDC) | payer OTHER, SELFPAY ==
[2024-03-05 15:27] VITALS: BMI 32.1
--- NOTE | 2024-03-06 12:56 | P.CONAN_ITS ---
Documented by User: Erica Prince NP 03/06/24 12:57 HPI - Anesthesia Eval Consult details Narrative: 59yo M for Colonoscopy Pulmo optimized PMFSH Active Problems Active Problems: All Active Problems Hematuria (Acute) Urinary frequency (Acute) Encounter for preoperative pulmonary examination (Acute) Colon cancer screening (Acute) Low back pain (Acute) Annual physical exam (Acute) Overweight (BMI 25.0-29.9) (Acute) Cardiac murmur (Acute) Renal calculus, left (Acute) Elevated PSA (Acute) Intellectual disability (Acute) Obesity (BMI 30-39.9) (Acute) Vitamin D deficiency (Acute) Insomnia (Acute) Bipolar depression (Acute) Benign essential hypertension (Acute) Asthma (Acute) Past Medical History Medical History Anxiety Renal calculus, left Elevated PSA Obesity (BMI 30-39.9) Vitamin D deficiency Intellectual disability Insomnia Benign essential hypertension Bipolar depression Asthma Family History Family History Other Family history unknown Surgical History Surgical History Hx of appendectomy Social History Social History Household Members: Family Housing: House Are you a primary administrator health care facility to a significant other at home: No Do you presently have visiting nurse or other home services: No Alcohol intake: never Patient Tobacco Use Status: Former Tobacco user e-Cigarette/Vaping Use: Never Used Second Hand Smoke Exposure: No Use of substances other than those prescribed or required for medical reasons: No Have you been hit, kicked, punched, or otherwise hurt by someone within the past year? If so, by whom?: No Are you DNR?: No Advance Directives: No Advance Directives Information Provided: Yes Recently lost weight without trying: No Nutrition Risks: No Nutritional Risk Poor oral hygiene: No service: No Current occupational status: disabled Cognitive needs: No Hearing needs: Yes Vision needs: Yes Meds Allergies Allergy/AdvReac Type Severity Reaction Status Date / Time No Known Allergies Allergy Verified 03/07/24 10:08 Exam Height,Weight and Vital Signs: Height 5 ft 5 in Weight 87.6 kg Assessment and Plan Assessment Anesthesia Assessment: Chart Reviewed Documented by User: Anaya Das MD 03/07/24 11:00 PMFSH Past Medical History Medical History Anxiety Renal calculus, left Elevated PSA Obesity (BMI 30-39.9) Vitamin D deficiency Intellectual disability Insomnia Benign essential hypertension Bipolar depression Asthma Family History Family History Other Family history unknown Surgical History Surgical History Hx of appendectomy History of Problems with Anesthesia: No Social History Social History Household Members: Family Housing: House Are you a primary administrator health care facility to a significant other at home: No Do you presently have visiting nurse or other home services: No Alcohol intake: never Patient Tobacco Use Status: Former Tobacco user e-Cigarette/Vaping Use: Never Used Second Hand Smoke Exposure: No Use of substances other than those prescribed or required for medical reasons: No Have you been hit, kicked, punched, or otherwise hurt by someone within the past year? If so, by whom?: No Are you DNR?: No Advance Directives: No Advance Directives Information Provided: Yes Recently lost weight without trying: No Nutrition Risks: No Nutritional Risk Poor oral hygiene: No service: No Current occupational status: disabled Cognitive needs: No Hearing needs: Yes Vision needs: Yes Meds Allergies Allergy/AdvReac Type Severity Reaction Status Date / Time No Known Allergies Allergy Verified 03/07/24 10:08 Exam Airway Mallampati Class: III (edentulous) TM Dist: >3cm Neck ROM: Full Loose/Missing/Broken Teeth: Yes, Upper and Lower Heart: RRR Lungs: CTA Assessment and Plan Assessment Anesthesia Assessment: Anesthesia Plan Discussed Final Anesthetic Review History of Problems with Anesthesia: No NPO: Yes ASA Class: III Final Preanesthetic Review: Meds/Allgs Chart Reviewed, Consent Obtained/Reviewed and Anes Risks/Benef Reviewed Patient Risk: Intermediate Procedure Risk: Low Anesthetic Plan Anesthetic Plan: MAC: Disposition: Standard PACU
--- NOTE | 2024-03-07 09:56 | MHC.SHP ---
Pre-Procedural Eval Section A - 24 Hr Update-Section A only Date of Service: 03/07/24 Section B - Complete if H&P > 30 days Chief Complaint: screening Relevant Family History (Specify if Yes): No Relevant Social History: None Present Medications: None Medical History: Significant History (Anxiety Renal calculus, left Elevated PSA Obesity (BMI 30-39.9) Vitamin D deficiency Intellectual disability Insomnia Benign essential hypertension Bipolar depression Asthma) History of Previous Operations: Relevant previous surgery/procedure and date(s) (Hx of appendectomy) Allergies: Allergies Allergy/AdvReac Type Severity Reaction Status Date / Time No Known Allergies Allergy Verified 03/05/24 16:26 Review of Systems Sugical H&P ROS: Negative: Constitution, Cardiovascular, Respiratory, Neurological, Psychiatric, Hem-Onc, Allergic/Immunologic, Gastrointestinal, Genitourinary, Musculoskeletal, Integumentary, Endocrine and Eyes/Ears/Nose/Throat Exam Surgical H&P Exam: Normal: HEENT, Normal: Heart, Normal: Lungs, Normal: Extremities, Normal: Abdomen, Normal: Skin and Normal: Neurological Plan Diagnosis/Plan: Unchanged I have reviewed the history and physical and performed a pertinent physical examination on my patient. No changes have occurred unless specified. Time Spent With Patient Time: Total time managing care of this patient today ____ minutes.
[2024-03-07 10:20] VITALS: BP 165/93; PULSE 89; RESP 16; TEMP 36.8; O2SAT 96; BMI 34.8
[2024-03-07] MEDS: Lactated Ringers 1,000 ML 100 ML IVCONT (10:42)
--- NOTE | 2024-03-07 11:31 | P.OPN-COLO_ITS ---
Colonoscopy Operative Note Operative Note Date of Service: 03/07/24 Narrative: Operative Information Procedure Description: Colonoscopy Indication: screening Anesthesia: MAC COLONOSCOPY Instrument: Olympus variable stiffness pediatric scope 190L Colonoscopy Monitoring: Vital signs and clinical assessment, continuous EKG monitoring, Pulse oximetry, Carbon Dioxide monitoring and blood pressure monitoring were done throughout the procedure. Colon withdrawal time was 34 minutes. Procedure: The patient was placed in the left lateral decubitis position and pre-procedure medications were administered. After a digital rectal examination of the ano-rectum, the video colonoscope was inserted into the rectum and advanced through the colon to the cecum/TI. The colonoscope was slowly withdrawn in a retrograde panoramic fashion and the colon mucosa was carefully examined including a retroflexed view of the rectum. Findings and interventions are described below. Procedure Difficulty: moderate Findings: Terminal Ileum-normal Cecum:normal Ascending Colon: 10 mm sessile polyp removed with cold snare Transverse Colon -normal Descending Colon:normal Sigmoid Colon: 10 mm sessile polyp removed with cold snare Rectum: Retroflexion with small internal hemorrhoids seen, grade I Anorectum - normal Intervention: cold snare Colon preparation: [place] Bowel Preparation Scale Right colon; 1-2 Transverse colon: 2 Left colon; 1-2 (0 = Unprepared colon segment with mucosa not seen due to solid stool that cannot be cleared. 1 = Portion of mucosa of the colon segment seen, but other areas of the colon segment not well seen due to staining, residual stool and/or opaque liquid. 2 = Minor amount of residual staining, small fragments of stool and/or opaque liquid, but mucosa of colon segment seen well. 3 = Entire mucosa of colon segment seen well with no residual staining, small fragments of stool or opaque liquid) Impression and Post Procedure Diagnosis: colon polyps internal hemorrhoids Plan: High fiber diet leaflet Avoid straining at stool, epsom salts and sitz bath, anusol supps or cream Repeat Colonoscopy in 1-2 years or earlier if clinically indicated Above findings were reviewed with the patient and relevant handouts were provided if indicated.
[2024-03-07 11:35] VITALS: BP 106/65; PULSE 80; RESP 18; TEMP 36.1; O2SAT 99
[2024-03-07 11:50] VITALS: BP 127/85; PULSE 80; RESP 20; O2SAT 98
[2024-03-07 12:05] VITALS: BP 131/83; PULSE 81; RESP 20; TEMP 36.1; O2SAT 96
== END 2024-03-07 12:44 | disposition home or self-care (01) ==
PROVIDERS: PCP Internal Medicine; Visit Provider Internal Medicine Gastroenterology
PROC: 0DJD8ZZ Inspection of Lower Intestinal Tract, Via Natural or Artificial Opening Endoscopic (ICD-10-PCS; CPT 45378; principal; 2024-03-07 10:40)
DX: Z12.11 Encounter for screening for malignant neoplasm of colon (principal); K63.5 Polyp of colon; K64.8 Other hemorrhoids; I10 Essential (primary) hypertension; J45.909 Unspecified asthma, uncomplicated; Z87.891 Personal history of nicotine dependence; E55.9 Vitamin D deficiency, unspecified; Z79.899 Other long term (current) drug therapy
CPT/HCPCS: 45385; 88305; J0171; J2003; J2704

== ENCOUNTER → 2024-03-07 08:06 | Outpatient (BNV) | payer OTHER, SELFPAY | PROVIDERS: PCP Internal Medicine; Visit Provider Internal Medicine Gastroenterology | DX: Z12.11 Encounter for screening for malignant neoplasm of colon (principal); K63.5 Polyp of colon; K64.0 First degree hemorrhoids | CPT/HCPCS: 45385 ==

== ENCOUNTER 2024-03-08 09:19 | Outpatient (REF) | payer OTHER, SELFPAY | END 2024-03-08 09:20 | disposition home or self-care (01) | LOC: HO.CT 09:19 | PROVIDERS: PCP Internal Medicine; Visit Provider Urology | DX: Z13.89 Encounter for screening for other disorder (principal) ==

== ENCOUNTER 2024-03-12 16:24 | Outpatient (AMB) | payer OTHER, SELFPAY ==
[2024-03-12 16:27] VITALS: BP 110/80; PULSE 94; O2SAT 95; BMI 35.7
--- NOTE | 2024-03-12 16:27 | A.OFFPC_ITS ---
Vital Signs 03/12/24 16:27 Height 5 ft 1 in Weight 189 lb 2 oz BMI 35.7 BP 110/80 Blood Pressure Location Lt brachial Position Sitting Pulse 94 Pulse Source Pulse Oximeter Pulse Oximetry (%) 95 Oxygen Delivery Method Room Air Intake Visit Reasons: 4 MO F/U Director Of Hotel Operations Required: No Accompanied by: Self / Same As Patient Allergies No Known Allergies Allergy (Verified 03/12/24 17:06) Medication List - Last Reconciled 03/12/24 by Ha Little MD albuterol sulfate 90 mcg/actuation 2 puffs inhalation Q6H PRN 30 days albuterol sulfate 2.5 mg (3 mL) inhalation Q4-6H PRN amlodipine 5 mg PO DAILY 30 days bisacodyl (Dulcolax (bisacodyl)) 20 mg (4 x 5 mg) PO ONCE 1 day cholecalciferol (vitamin D3) 50 mcg PO DAILY 90 days fluticasone propion-salmeterol 115-21 mcg/actuation (Advair HFA) 2 puffs inhalation Q12H melatonin 5 mg PO BID 30 days olanzapine 15 mg PO DAILY 30 days polyethylene glycol 3350 (Miralax) 238 grams PO ONCE tizanidine 4 mg PO Q8H PRN 30 days trazodone 50 mg PO BEDTIME PRN 30 days Tobacco use date assessed: 03/12/24 Dental Screening Dental Screen Date: 03/12/24 Did you have a dental visit in the last 12 months?: No Did you have a dental problem in the last 6 months where you did not have access to dental care?: No Was dental information given to patient?: No HPI 4 MO F/U HPI Details Patient comes in today for his follow-up visit States that he feels okay He denies any headaches or dizziness Denies any chest pains, no increased shortness of breath - states that his asthma seems to be better controlled now with the addition of Advair by Pulmonary No nausea/vomiting, no abdominal pain No change in bowel habits noted Needs his albuterol inhaler Rx refilled His colonoscopy that was supposedly scheduled for last week was apparently canceled due to equipment failure and he will be rescheduled for this at a future date [facility] Medical History (Updated 03/18/24 @ 23:00 by Ha Little MD) Lumbar spondylosis Anxiety Renal calculus, left Elevated PSA Obesity (BMI 30-39.9) Vitamin D deficiency Intellectual disability Insomnia Benign essential hypertension Bipolar depression Asthma Surgical History Hx of appendectomy Family History Other Family history unknown Social History Household Members: Family Housing: House Are you a primary career based intervention coordinator to a significant other at home: No Do you presently have visiting nurse or other home services: No 75 years or older and lives alone: No Alcohol intake: never Patient Tobacco Use Status: Former Tobacco user e-Cigarette/Vaping Use: Never Used Second Hand Smoke Exposure: No service: No Current occupational status: disabled Cognitive needs: No Hearing needs: Yes Vision needs: Yes Questionnaire PHQ-9 Over the last 2 weeks, how often have you been bothered by any of the following problems? 1. Little interest or pleasure in doing things: nearly every day 2. Feeling down, depressed, or hopeless: nearly every day 3. Trouble falling or staying asleep, or sleeping too much: more than half the days 4. Feeling tired or having little energy: more than half the days 5. Poor appetite or overeating: more than half the days 6. Feeling bad about yourself - or that you are a failure or have let yourself or your family down: several days 7. Trouble concentrating on things, such as reading the newspaper or watching television: several days 8. Moving or speaking so slowly that other people could have noticed. Or the opposite - being so fidgety or restless that you have been moving around a lot more than usual: several days 9. Thoughts that you would be better off or of hurting yourself in some way: several days Total score: 16 Depression Screening Interpretation: Positive Depression Screening Follow-up: Existing condition, In treatment and Community Mental Health Worker F/U Depression Screening Done: Yes 91358 - PHQ-9 Billing: Yes Source: Developed by Drs. Ayo Ramirez, Jocelyn Mireles, Adriel Hugo and colleagues, with an educational anil from [employer]. Thrive Questionnaire Date Thrive assessed: 03/12/24 I am a: Patient What is your living situation today?: I have a steady place to live Within the past 12 months, did the food you bought not last and you didn't have the money to get more?: Never true Within the past 12 months, did you worry whether your food would run out before you got money to buy more?: Never true Do you have trouble paying for medicines?: No Do you have trouble getting transportation to medical appointments?: No Do you have trouble paying your heating and electricity bill?: No Do you have trouble taking care of your child, family member or friend?: No Do you have trouble with day-to-day activities such as bathing, preparing meals, shopping, managing finances, etc.?: No Are you currently unemployed and looking for a job?: No Are you interested in more education?: No Please select the resources that you would like help with: None Currently or been in a relationship where the following occur: No concerns reported THRIVE Score: 0 AUDIT C Alcohol Use Questionnaire (AUDIT-C) 1. How often do you have a drink containing alcohol?: Monthly or less 2. How many drinks containing alcohol do you have on a typical day when you are drinking?: 1 or 2 3. How often do you have six or more drinks on one occasion?: Never Total Score: 1 Score Reviewed/Action Taken: Yes ANJELICA-7 AMB Questionnaire ANJELICA-7 Date ANJELICA - 7 assessed: 03/12/24 Feeling nervous, anxious, or on edge: 0 = Not at all Not being able to stop or control worryin = Not at all Worrying too much about different things: 0 = Not at all Trouble relaxin = Not at all Being so restless that it is hard to sit still: 0 = Not at all Becoming easily annoyed or irritable: 0 = Not at all Feeling afraid as if something awful might happen: 0 = Not at all Total ANJELICA-7 score (0-4 normal; 5-9 mild; 10-14 moderate; 15-21 severe): 0 Source: Developed by Drs. Ayo Ramirez, Jocelyn Mireles, Adriel Hugo and colleagues, with an educational anil from [employer]. Review of Systems Const Denies chills, Denies fatigue, Denies fever(s) and Denies headache(s) ENT Denies dysphagia, Denies dizziness, Denies otalgia, Denies headache(s), Denies neck pain, Denies odynophagia and Denies sore throat Card Denies chest pain, Denies palpitations and Denies dyspnea Resp Denies cough and Denies dyspnea GI Denies abdominal pain, Denies constipation, Denies dysphagia, Denies heartburn, Denies diarrhea, Denies nausea, Denies odynophagia and Denies vomiting Denies hematuria, Denies dysuria, Denies nocturia and Reports urinary frequency (recently) Musc Reports back pain (over the lower back) and Denies neck pain Skin/Breast Denies rash Neuro Denies dizziness and Denies headache(s) Endo Denies fatigue and Denies palpitations Physical exam (Primary Care) Vital Signs: Last Vital Signs Pulse 94 03/12/24 16:27 BP 110/80 03/12/24 16:27 Pulse Ox 95 03/12/24 16:27 Oxygen Delivery Method Room Air 03/12/24 16:27 BMI result Body Mass Index 35.7 Tobacco/Smoking Status: Tobacco use Status Tobacco use date assessed 03/12/24 03/12/24 16:38 Patient Tobacco Use Status Former Tobacco user 03/12/24 16:28 e-Cigarette/Vaping Use Never Used 03/12/24 16:28 PHQ-9: PHQ-9 Score PHQ-9: Total score 16 03/12/24 17:08 Depression Screening Interpretation: Positive Depression Screening Follow-up: Existing condition, In treatment and Community Mental Health Worker F/U Thrive Assessment: Date of Thrive Assessment Date Thrive assessed 03/12/24 03/12/24 16:38 Currently or been in a relationship where the following occur: No concerns reported Const General: no acute distress and alert HENMT Ears: TM's normal bilaterally and EAC's normal Throat: Yes posterior oropharynx normal and Yes tonsils normal (no TP congestion) Neck Neck: Yes no lymphadenopathy and Yes supple Thyroid: Thyroid normal Resp Auscultation: clear to auscultation bilaterally, no rales and no wheezes Cardio Rate: regular rate Rhythm: regular rhythm Heart sounds: no murmurs GI Palpation (GI): Soft to palpation and nontender Auscultation: normal bowel sounds General: Yes no CVA tenderness Back/Spine/Pelvis Back: no CVA tenderness Thoracic/Lumbar Spine: straight leg raise negative bilaterally and lumbar spinal tenderness Skin Rashes: no rashes Extrem General: Yes no clubbing, cyanosis or edema Coding Level of Care Code Est Pt Level 4 (29019) Diagnoses Benign essential hypertension I10 Uncomplicated asthma, unspecified asthma severity, unspecified whether persistent J45.909 Asthma severity: unspecified severity Asthma persistence: unspecified Asthma complication type: uncomplicated Cardiac murmur R01.1 Vitamin D deficiency E55.9 Renal calculus, left N20.0 Elevated PSA R97.20 Lumbar spondylosis M47.816 Intellectual disability F79 Insomnia, unspecified type G47.00 Insomnia type: unspecified Bipolar depression F31.9 Obesity (BMI 30-39.9) E66.9 Additional Codes PHQ-9 - 55031 - PHQ-9 Billing: Yes ([id number]) Assessment & Plan Assessment & Plan (1) Benign essential hypertension: Code(s): I10 - Essential (primary) hypertension Category: Medical Plan: Reinforced low sodium diet - goal is systolic BP of 120 mm or less Continue Amlodipine 5 mg QD (2) Asthma: Comment: well controlled UDN, daily inhaler and PRN inhaler Code(s): J45.909 - Unspecified asthma, uncomplicated Category: Medical Qualifiers: Asthma severity: unspecified severity Asthma persistence: unspecified Asthma complication type: uncomplicated Qualified Code(s): J45.909 - Unspecified asthma, uncomplicated Plan: Controlled/stable; continue Albuterol HFA 2 inhalations Q 6 hours PRN (3) Cardiac murmur: Code(s): R01.1 - Cardiac murmur, unspecified Category: Medical Plan: Echocardiogram done a few months ago revealed normal left ventricular size, thickness, systolic function, and wall motion. The visually estimated ejection fraction is between 55-60%.? Diastolic function is normal for age. Mildly increased right ventricular cavity size.? There is normal right ventricular systolic function. The right atrium is mildly dilated. There is trace MR and trace TR noted, which are most likely the source of his audible cardiac murmur (4) Vitamin D deficiency: Code(s): E55.9 - Vitamin D deficiency, unspecified Category: Medical Plan: Continue Vitamin D3 2000 units QD (5) Renal calculus, left: Code(s): N20.0 - Calculus of kidney Category: Medical Plan: (+) left renal calculus is seen incidentally on his lumbar spine x-rays done in June Renal US done in October 2023 revealed (+) nonobstructing 1.8 cm left lower pole renal calculus (6) Elevated PSA: Code(s): R97.20 - Elevated prostate specific antigen [PSA] Category: Medical Plan: Follow up with urology as scheduled (7) Lumbar spondylosis: Code(s): M47.816 - Spondylosis without myelopathy or radiculopathy, lumbar region Category: Medical Plan: Reinforced activity and weight-lifting restrictions to avoid aggravating his back pain Lumbar spine x-rays done in July 2023 revealed (+) multilevel mild lumbar spondylosis and mild degenerative disc disease at L3-L4 through L5-S1 Continue Tizanidine 4 mg TID PRN Have offered to refer him to Pain Management as well but patient declined - states that he will consider this and call back for referral if he decides to go to pain management (8) Intellectual disability: Code(s): F79 - Unspecified intellectual disabilities Category: Medical Plan: Patient reportedly had some tests and imaging studies done at [facility] last year (2022) and was advised that he has cognitive defects due to some abnormalities on his head scan Have tried to obtain copies of these from [facility] for review but we have not yet received any information or correspondence from them so far (9) Insomnia: Code(s): G47.00 - Insomnia, unspecified Category: Medical Qualifiers: Insomnia type: unspecified Qualified Code(s): G47.00 - Insomnia, unspecified Plan: Sleep hygiene reinforced Continue Trazodone 50 mg Q HS PRN and Melatonin 5 mg BID (10) Bipolar depression: Code(s): F31.9 - Bipolar disorder, unspecified Category: Medical Plan: Continue Olanzapine 15 mg Q HS Follow up with psychiatry as scheduled (11) Obesity (BMI 30-39.9): Code(s): E66.9 - Obesity, unspecified Category: Medical Plan: Reinforced diet/exercise as tolerated/lose weight Plan To return in 4 months for his next annual physical examination Orders: Orders Complete Blood Count Auto Diff 4 Months D64.9 - Anemia, unspecified, Z00.00 - Encounter for general adult medical examination without abnormal findings Lipid Panel 4 Months E78.00 - Pure hypercholesterolemia, unspecified, Z00.00 - Encounter for general adult medical examination without abnormal findings TSH reflex Free T4 4 Months E78.00 - Pure hypercholesterolemia, unspecified, Z00.00 - Encounter for general adult medical examination without abnormal findings Comprehensive [place]. Panel Fast 4 Months E78.00 - Pure hypercholesterolemia, unspecified, Z00.00 - Encounter for general adult medical examination without abnormal findings UA CC w/rflx Micro + Cult 4 Months R30.0 - Dysuria, Z00.00 - Encounter for general adult medical examination without abnormal findings Prostate Specific Antigen 4 Months N40.0 - Benign prostatic hyperplasia without lower urinary tract symptoms, Z00.00 - Encounter for general adult medical examination without abnormal findings Medications: Refilled albuterol sulfate 2.5 mg (3 mL) inhalation Q4-6H PRN 90 mL 2RF shortness of breath or wheezing albuterol sulfate 90 mcg/actuation 2 puffs inhalation Q6H 30 days PRN 8.5 grams 3RF shortness of breath or wheezing J45.909 - Unspecified asthma, uncomplicated
== END 2024-03-12 17:11 | disposition home or self-care (01) ==
PROVIDERS: PCP Internal Medicine; Visit Provider Internal Medicine
DX: I10 Essential (primary) hypertension (principal); J45.909 Unspecified asthma, uncomplicated; R01.1 Cardiac murmur, unspecified; F31.9 Bipolar disorder, unspecified; E66.9 Obesity, unspecified; Z68.35 Body mass index [BMI] 35.0-35.9, adult; E55.9 Vitamin D deficiency, unspecified; N20.0 Calculus of kidney; R97.20 Elevated prostate specific antigen [PSA]; M47.816 Spondylosis without myelopathy or radiculopathy, lumbar region; F79 Unspecified intellectual disabilities; G47.00 Insomnia, unspecified

== ENCOUNTER → 2024-03-12 16:24 | Outpatient (BNVA) | payer OTHER, SELFPAY | PROVIDERS: PCP Internal Medicine; Visit Provider Internal Medicine | DX: I10 Essential (primary) hypertension (principal); J45.909 Unspecified asthma, uncomplicated; R01.1 Cardiac murmur, unspecified; E55.9 Vitamin D deficiency, unspecified; N20.0 Calculus of kidney; R97.20 Elevated prostate specific antigen [PSA]; M47.816 Spondylosis without myelopathy or radiculopathy, lumbar region; F79 Unspecified intellectual disabilities; G47.00 Insomnia, unspecified; F31.9 Bipolar disorder, unspecified; E66.9 Obesity, unspecified | CPT/HCPCS: 96127; 99212 ==

== ENCOUNTER 2024-03-21 11:41 | Outpatient (AMB) | payer OTHER, SELFPAY ==
[2024-03-21 11:51] VITALS: BP 138/76; PULSE 74; O2SAT 95; BMI 35.4
--- NOTE | 2024-03-21 11:51 | A.OFFVIS_ITS ---
Vital Signs 03/21/24 11:51 Height 5 ft 1 in Weight 187 lb 6.287 oz BMI 35.4 BP 138/76 Blood Pressure Location Lt brachial Position Sitting Pulse 74 Pulse Source Pulse Oximeter Pulse Oximetry (%) 95 Oxygen Delivery Method Room Air Comment [id number] Stu Intake Visit Reasons: s/p colon Intake Note: Relevant Flags or Indicators ? Requires Matrix Bath Operator? Trent Ventura presents in office today for a scheduled s/p FUV. CC; No recent labs, diagnostics, or med orders placed. ? Relevant GI Sx as reported per pt? None ? Hx of any recent surgeries? [place] w/ Dr. Mars. Prostate biopsy via Dr. Yarbrough Matrix Bath Operator Required: Yes Matrix Bath Operator Services: Matrix Bath Operator Present Matrix Bath Operator Name: See notes in vitals Information Interpreted: non-clinical & clinical Accompanied by: Brother Allergies No Known Allergies Allergy (Verified 03/21/24 11:51) HPI HPI s/p colon: Details: LAST VISIT: Colon cancer screening Plan What to expect before during and after procedure discussed with patient and his daughter. Stressed the importance of good bowel prep and clear liquid diet day before procedure. Patient's daughter will be helping him with the procedure. 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 Please make sure to look in her note. Patient reports that now that he is taking his medication he is feeling much better. Denies having any shortness of breath. Patient denies any cardiac symptoms. Appointment already scheduled with us after procedure to discuss results. Both patient and his daughter are agreeable to plan of care and verbalizes understanding of instructions. They were given the opportunity to ask questions and all questions answered ? COLONOSCOPY Findings: Terminal Ileum-normal Cecum:normal Ascending Colon: 10 mm sessile polyp removed with cold snare Transverse Colon -normal Descending Colon:normal Sigmoid Colon: 10 mm sessile polyp removed with cold snare Rectum: Retroflexion with small internal hemorrhoids seen, grade I Anorectum - normal Intervention: cold snare Colon preparation: [place] Bowel Preparation Scale Right colon; 1-2 Transverse colon: 2 Left colon; 1-2 (0 = Unprepared colon segment with mucosa not seen due to solid stool that cannot be cleared. 1 = Portion of mucosa of the colon segment seen, but other areas of the colon segment not well seen due to staining, residual stool and/or opaque liquid. 2 = Minor amount of residual staining, small fragments of stool and/or opaque liquid, but mucosa of colon segment seen well. 3 = Entire mucosa of colon segment seen well with no residual staining, small fragments of stool or opaque liquid) Impression and Post Procedure Diagnosis: colon polyps internal hemorrhoids Plan: High fiber diet leaflet Avoid straining at stool, epsom salts and sitz bath, anusol supps or cream Repeat Colonoscopy in 1-2 years or earlier if clinically indicated PATHOLOGY RESULTS Diagnosis A. Colon, ascending, polypectomy: Fragments of food/vegetable material; no colonic tissue identified. B. Colon, sigmoid, polypectomy: Hyperplastic mucosal polyp TODAY'S VISIT Patient is here today for follow-up and to discuss colonoscopy results. Patient denies any ill effects from the prep, anesthesia or procedure itself. Suboptimal prep fragments of food/vegetable material found in ascending colon 1 hyperplastic polyp found in sigmoid colon. Patient's son who is accompanied p atient today states that his sister was with their father all day before the procedure and made sure that he followed directions with prepping. Patient did not eat anything day before procedure. No issues with anesthesia. Recommendation was made for patient to repeat colonoscopy in 1-2 years. Patient denies any abdominal pain or discomfort. Reports that he is moving his bowels without any issues. [facility] Medical History Lumbar spondylosis Anxiety Renal calculus, left Elevated PSA Obesity (BMI 30-39.9) Vitamin D deficiency Intellectual disability Insomnia Benign essential hypertension Bipolar depression Asthma Surgical History Hx of appendectomy Family History Other Family history unknown Social History Household Members: Family Housing: House Are you a primary child care centre manager to a significant other at home: No Do you presently have visiting nurse or other home services: No 75 years or older and lives alone: No Alcohol intake: never Patient Tobacco Use Status: Former Tobacco user e-Cigarette/Vaping Use: Never Used Second Hand Smoke Exposure: No service: No Current occupational status: disabled Cognitive needs: No Hearing needs: Yes Vision needs: Yes Review of Systems Const Denies weight gain and Denies weight loss ENT Reports no additional complaints, Denies dysphagia and Denies odynophagia Card Reports no additional complaints Resp Reports no additional complaints GI Denies abdominal pain, Denies belching, Denies melena, Denies bloating, Denies change in bowel habits, Denies dysphagia, Denies excessive flatus, Denies dyspepsia, Denies heartburn, Denies diarrhea, Denies loose stools, Denies nausea, Denies odynophagia and Denies vomiting Reports no additional complaints Musc Reports no additional complaints Neuro Reports no additional complaints Psych Reports no additional complaints Endo Reports no additional complaints Physical Exam Vital Signs: Last Vital Signs Pulse 74 03/21/24 11:51 BP 138/76 03/21/24 11:51 Pulse Ox 95 03/21/24 11:51 Oxygen Delivery Method Room Air 03/21/24 11:51 BMI result Body Mass Index 35.4 Const Nutritional Appearance: obese Orientation/consciousness: patient oriented x3 Limitations: other limitations (delayed mental development ) Resp Effort & Inspection: normal respiratory effort, able to speak in complete sentences, no tracheal deviation and symmetric chest movement Auscultation: clear to auscultation bilaterally Cardio Rate: regular rate GI Inspection: Yes normal to inspection, No distended and Yes obesity Palpation (GI): Soft to palpation, not firm, nontender and No hepatosplenomegaly present Auscultation: normal bowel sounds General: Yes no CVA tenderness Back/Spine/Pelvis Back: no CVA tenderness Skin General skin exam: elasticity normal, turgor normal and dry skin Neuro General: patient oriented x3 Psych Appearance: grossly normal Mental Status: mental status grossly normal Assessment & Plan Assessment & Plan (1) Status post colonoscopy: Code(s): Z98.890 - Other specified postprocedural states Plan As mentioned above in HPI patient will need to repeat colonoscopy in 1-2 years. He currently does not have any melena or hematochezia. Suboptimal prep 1 hyperplastic polyp found. Patient will return in 1 year to discuss colonoscopy. Currently he does not have any GI concerning symptoms. Patient and his son will encouraged to call the office if he will have any GI concerning symptoms. Both are agreeable to plan of care and verbalizes understanding of instructions. They were given the opportunity to ask questions and all questions answered. Thank you for allowing me to participate in his care Coding Level of Care Code Est Pt Level 3 (49907) Diagnoses Status post colonoscopy Z98.890 Time Spent (min) 25 Comment 15 minutes spent with patient and additional 10 minutes spent reviewing his records
== END 2024-03-21 12:47 | disposition home or self-care (01) ==
PROVIDERS: PCP Internal Medicine; Visit Provider Nurse Practitioner Family
DX: Z98.890 Other specified postprocedural states (principal)
CPT/HCPCS: 99213

== ENCOUNTER → 2024-03-21 11:41 | Outpatient (BNVA) | payer OTHER, SELFPAY | PROVIDERS: PCP Internal Medicine; Visit Provider Nurse Practitioner Family | DX: Z98.890 Other specified postprocedural states (principal) | CPT/HCPCS: 99212 ==

== ENCOUNTER 2024-03-27 05:49 | Day surgery (SDC) | payer OTHER, SELFPAY ==
[2024-03-05 16:26] VITALS: BMI 32.1
[2024-03-27] VITALS (8 sets, daily range): BP systolic 129–158; BP diastolic 87–95; PULSE 91–99; RESP 18; TEMP 36.1–37; O2SAT 91–96; BMI 30.8
[2024-03-27] MEDS: Lactated Ringers 1,000 ML 50 ML IVCONT (06:42)
[2024-03-27] MEDS: Albuterol Sulfate (0.083%) 2.5 MG/3 ML VIAL.NEB INHALE (06:51)
--- NOTE | 2024-03-27 07:18 | P.CONAN_ITS ---
HPI - Anesthesia Eval Consult details Narrative: For cysto, prostate and [facility]x. [facility] Active Problems Active Problems: All Active Problems Hematuria (Acute) Urinary frequency (Acute) Encounter for preoperative pulmonary examination (Acute) Colon cancer screening (Acute) Low back pain (Acute) Annual physical exam (Acute) Overweight (BMI 25.0-29.9) (Acute) Cardiac murmur (Acute) Lumbar spondylosis (Acute) Renal calculus, left (Acute) Elevated PSA (Acute) Intellectual disability (Acute) Obesity (BMI 30-39.9) (Acute) Vitamin D deficiency (Acute) Insomnia (Acute) Bipolar depression (Acute) Benign essential hypertension (Acute) Asthma (Acute) Past Medical History Medical History Lumbar spondylosis Anxiety Renal calculus, left Elevated PSA Obesity (BMI 30-39.9) Vitamin D deficiency Intellectual disability Insomnia Benign essential hypertension Bipolar depression Asthma Family History Family History Other Family history unknown Family history of problems with anesthesia: No Surgical History Surgical History (Updated 03/22/24 @ 13:27 by Stella Marrero RN) H/O colonoscopy Hx of appendectomy History of Problems with Anesthesia: No Social History Social History Household Members: Family Housing: House Are you a primary child care associate teacher to a significant other at home: No Do you presently have visiting nurse or other home services: No Alcohol intake: never Patient Tobacco Use Status: Former Tobacco user e-Cigarette/Vaping Use: Never Used Second Hand Smoke Exposure: No Are you DNR?: No Advance Directives: No Advance Directives Information Provided: No (plans to get HCP at next PCP visit) Advance Directives on File: No Poor oral hygiene: No service: No Current occupational status: disabled Cognitive needs: No Hearing needs: Yes Vision needs: Yes Meds Allergies Allergy/AdvReac Type Severity Reaction Status Date / Time No Known Allergies Allergy Verified 03/21/24 11:51 Active Medications: Current Medications Lactated Ringer's (Lr) 1,000 mls @ 50 mls/hr IVCONT .Q20H SHANNAN Last Admin: 03/27/24 06:42 Dose: 50 mls/hr Exam Height,Weight and Vital Signs: Height 5 ft 5 in Weight 84.085 kg Last Vital Signs Temp 98.1 F 03/27/24 06:25 Pulse 96 03/27/24 06:53 Resp 18 03/27/24 06:53 BP 158/95 H 03/27/24 06:20 Pulse Ox 95 03/27/24 06:20 O2 Del Method Room Air 03/27/24 06:20 Airway Mallampati Class: II TM Dist: <=3cm Neck ROM: Full Denture: Upper and Lower Heart: ok Lungs: ok Assessment and Plan Assessment Anesthesia Assessment: Anesthesia Plan Discussed and Chart Reviewed Final Anesthetic Review Family History of Problems with Anesthesia: No History of Problems with Anesthesia: No NPO: Yes ASA Class: III Final Preanesthetic Review: No Changes in Pt Med Stat, Meds/Allgs Chart Reviewed, Consent Obtained/Reviewed and Anes Risks/Benef Reviewed Patient Risk: Intermediate Procedure Risk: Low Anesthetic Plan Anesthetic Plan: GA and Agree w/ Assess. and Plan Disposition: Standard PACU
--- NOTE | 2024-03-27 07:33 | MHC.SHP ---
Pre-Procedural Eval Section A - 24 Hr Update-Section A only Date of Service: 03/27/24 The patient is an INPATIENT: No The patient has been examined within 24 hours of the surgical procedure. The History & Physical has been completed within 30 days and I have reviewed it.: Yes Section B - Complete if H&P > 30 days Chief Complaint: Elevated [PSA], hematuria Allergies: Allergies Allergy/AdvReac Type Severity Reaction Status Date / Time No Known Allergies Allergy Verified 03/21/24 11:51 Plan Diagnosis/Plan: Unchanged I have reviewed the history and physical and performed a pertinent physical examination on my patient. No changes have occurred unless specified. Cystoscopy. Discussed risks to include but not limited to, blood in the urine, burning with urination, urgency. Transrectal Ultrasound guided biopsy of the prostate. Discussed risks to include but not limited to pain, blood in stool, urine and semen, septicemia, need to repeat biopsy. Consent obtained with supervisor fish bait processing. Time Spent With Patient Time: Total time managing care of this patient today ____ minutes.
--- NOTE | 2024-03-27 08:44 | P.OP_ITS ---
Operative Note Operative Note Date of Service: 03/27/24 Narrative: PreOperative Diagnosis:? ? Elevated PSA, microscopic hematuria Post Operative Diagnosis:??Elevated PSA Procedure:?1. Transrectal ultrasound guided biopsy of the prostate 12 core 2. Transrectal ultrasound measurement of prostate 3. Transrectal ultrasound guided pudendal nerve block 4. CYSTOSCOPY, SURGEON: Jj Oh MD ANESTHESIA: General Details of procedure: The patient was brought into the operating room placed on the OR table in supine position. Levaquin 500 mg IV. General anesthesia was administered. The patient was repositioned into lithotomy position, prepped and draped in the usual sterile fashion. Time-out was done per protocol. A 22 fr cystoscope was placed transurethrally into the bladder. The bulbous urethra was within normal limits, the prostatic urethra noted an obstructive median lobe. There were moderate trabeculations noted. There were no suspicious bladder lesions seen. The cystoscope was removed. 2% lidocaine urojet was passed transurethrally into the bladder. The patient was repositioned on the procedure table in left lateral position. Digital rectal exam performed, iodine mixed with lubricant jelly 30 cc placed per rectum. Ultrasound probe was placed per rectum. The prostate was visualized. The prostate was measured width 4.92 cm, height 3.85 cm, length 6.29 cm with a volume of 62.3 mL. An ultrasound guided pudendal nerve block was performed using 10 cc of 1% lidocaine. A 12 core biopsy was performed from the left base, left mid, left apex and right base, mid, apex 2 biopsies from each section. The ultrasound probe was removed and digital palpation of the prostate for 1-2 minutes for he mostasis was performed. The patient tolerated the procedure well. Complications: None Drains: none
== END 2024-03-27 09:42 | disposition home or self-care (01) ==
PROVIDERS: PCP Internal Medicine; Visit Provider Urology
PROC: (CPT 55700; principal; 2024-03-27 08:30)
DX: C61 Malignant neoplasm of prostate (principal); R97.20 Elevated prostate specific antigen [PSA]; R31.29 Other microscopic hematuria; I10 Essential (primary) hypertension; J45.909 Unspecified asthma, uncomplicated; F31.9 Bipolar disorder, unspecified; F79 Unspecified intellectual disabilities; Z79.51 Long term (current) use of inhaled steroids; Z79.899 Other long term (current) drug therapy; E66.9 Obesity, unspecified; Z87.891 Personal history of nicotine dependence
CPT/HCPCS: 55700; 76942; 88305; 88344; 94640; J1956; J2003; J2704; J3010

== ENCOUNTER → 2024-03-27 05:49 | Outpatient (BNV) | payer OTHER, SELFPAY | PROVIDERS: PCP Internal Medicine; Visit Provider Urology | DX: R97.20 Elevated prostate specific antigen [PSA] (principal) | CPT/HCPCS: 55700; 76872; 76942 ==

== ENCOUNTER 2024-04-11 12:57 | Outpatient (AMB) | payer OTHER, SELFPAY ==
--- NOTE | 2024-04-11 13:13 | MHC.OFFVIS ---
Intake Visit Reasons: Prostate Bx, Bladder Bx results Intake Note: Patient is present for Biopsy results Urology Med: None Antibiotic Allergy: None Blood Thinner: None Patient Symptoms: Patient denies any discomfort or blood in the urine Assistant Associate Professor Required: Yes Assistant Associate Professor Language: Control Panel Operator Name: [id number] Accompanied by: Brother Allergies No Known Allergies Allergy (Verified 04/11/24 13:26) Medication List - Last Reconciled 04/11/24 by Jj Oh MD albuterol sulfate 2.5 mg (3 mL) inhalation Q4-6H PRN albuterol sulfate 90 mcg/actuation 2 puffs inhalation Q6H PRN 30 days amlodipine 5 mg PO DAILY 30 days cholecalciferol (vitamin D3) 50 mcg PO DAILY 90 days dutasteride (Avodart) 0.5 mg PO DAILY fluticasone propion-salmeterol 115-21 mcg/actuation (Advair HFA) 2 puffs inhalation Q12H levofloxacin 500 mg PO DAILY 3 days melatonin 5 mg PO BID 30 days olanzapine 15 mg PO DAILY 30 days tizanidine 4 mg PO Q8H PRN 30 days trazodone 50 mg PO BEDTIME PRN 30 days HPI Comments Details: 04/11/24--s/p bx 03/27/24--est vol 62.3 mL--vamsi grade 6 01/09/24-- Lorenzo is here with his brother for fu elevated PSA and microscopic hematuria, LV 11/18/23 - renal US left renal stone. repeat PSA --12/30/23--8.25. Discussed treatment plan prostate biopsy and cystoscopy. I have discussed further evaluation with CT urogram, Plan prostate bx and cystoscopy to be scheduled in the OR. 11/18/23--Lorenzo is a 58-year-old Urdu-speaking male who is here for evaluation due to elevated PSA. He is here with his sister. director of therapy services services used. The patient was seen by his PCP with complaints of back pain. Renal ultrasound was ordered. I have reviewed imaging. Final radiology report pending. Images suggest a left kidney stone. Urinalysis is significant for microscopic hematuria. Comorbidity history of nicotine use (patient states he smoked for about 4-5 years and quit over 10 years ago.) PSA--07/09/2023--7.29 PFSH Medical History Lumbar spondylosis Anxiety Renal calculus, left Elevated PSA Obesity (BMI 30-39.9) Vitamin D deficiency Intellectual disability Insomnia Benign essential hypertension Bipolar depression Asthma Surgical History H/O colonoscopy Hx of appendectomy Family History Other Family history unknown Social History Household Members: Family Housing: House Are you a primary day care provider to a significant other at home: No Do you presently have visiting nurse or other home services: No 75 years or older and lives alone: No Alcohol intake: never Patient Tobacco Use Status: Former Tobacco user e-Cigarette/Vaping Use: Never Used Second Hand Smoke Exposure: No service: No Current occupational status: disabled Cognitive needs: No Hearing needs: Yes Vision needs: Yes Review of Systems Const All systems reviewed & are unremarkable except as noted in HPI and below Reports no additional complaints Eyes Reports no additional complaints ENT Reports no additional complaints Card Reports no additional complaints Resp Reports no additional complaints GI Reports no additional complaints Reports as per HPI Musc Reports no additional complaints Skin/Breast Reports system reviewed and no additional complaints, except as documented Neuro Reports no additional complaints Psych Reports no additional complaints Endo Reports no additional complaints Benjamín/Lymph Reports no additional complaints Aller/Immun Reports no additional complaints Results AMB Urinalysis, Automated UA Leukoctes 15 Dipika/uL Last Edit by Emilia Magaña CMA on 04/11/24 13:34 UA Nitrite Negative Last Edit by Emilia Magaña CMA on 04/11/24 13:34 UA Urobilinogen 0.2 mg/dL Last Edit by Emilia Magaña CMA on 04/11/24 13:34 UA Protein 0 mg/dL Last Edit by Emilia Magaña CMA on 04/11/24 13:34 UA pH 6.0 Last Edit by Emilia Magaña CMA on 04/11/24 13:34 UA Blood 80 Sotero/uL Last Edit by Emilia Magaña CMA on 04/11/24 13:34 UA Specific [place] 1.020 Last Edit by Emilia Magaña CMA on 04/11/24 13:34 UA Ketone Negative Last Edit by Emilia Magaña CMA on 04/11/24 13:34 UA Bilirubin 0 mg/dL Last Edit by Emilia Magaña CMA on 04/11/24 13:34 UA Glucose 0 mg/dL Last Edit by Emilia Magaña CMA on 04/11/24 13:34 Results Reviewed Results Reviewed: Laboratory Last Values Urine pH (Auto) 6.0 04/11/24 13:26 Specific [place] (Auto) 1.020 04/11/24 13:26 Urine Protein (Auto) 0 mg/dL 04/11/24 13:26 Glucose (UA)(Auto) 0 mg/dL 04/11/24 13:26 Urine Ketones (Auto) Negative 04/11/24 13:26 Urine Blood (Auto) 80 Sotero/uL 04/11/24 13:26 Urine Nitrite (Auto) Negative 04/11/24 13:26 Urine Bilirubin (Auto) 0 mg/dL 04/11/24 13:26 Urine Urobilinogen (Auto) 0.2 mg/dL 04/11/24 13:26 Leukocyte Esterase (Auto) 15 Dipika/uL 04/11/24 13:26 Collected: 03/27/24 Location: [facility] Received: 03/27/24 Diagnosis Prostate, needle core biopsies: A. Left base lateral: Rare atypical gland. B. Left base medial: Rare atypical glands. C. Left mid lateral: Prostatic adenocarcinoma, Derby score 6 (3+3), grade group 1, 1 mm total (discontinuous involvement), 7% of core. D. Left mid medial: Benign prostatic tissue. E. Left apex lateral: Prostatic adenocarcinoma, Derby score 6 (3+3), grade group 1, 0.5 mm, 4% of core. F. Left apex medial: Prostatic adenocarcinoma, Derby score 6 (3+3), grade group 1, 3 mm, 20% of tissue, 1 of 2 cores involved. G. Right base lateral: Benign prostatic tissue. H. Right base medial: Benign prostatic tissue. I. Right mid lateral: Benign prostatic tissue. J. Right mid medial: Benign prostatic tissue. K. Right apex lateral: Benign prostatic tissue. L. Right apex medial: Benign prostatic tissue. Data synopsis - Prostate needle biopsy Histologic type: Adenocarcinoma, acinar type Histologic grade: Derby score: 6 (3+3) % of pattern 4: 0% % of pattern 5: 0% Grade group: 1 Tumor quantitation: Patient: Lorenzo Haider Age/Sex: 59/M MR#: [id number] Page 1 of 4 Date of Service: 11/10/23 US RETROPERITONEAL LIMITED (RENAL ONLY) CLINICAL INFORMATION: Calculus of kidney. COMPARISON: Lumbar spine 07/09/2023 TECHNIQUE: Real-time imaging of the kidneys. FINDINGS: RIGHT KIDNEY: 10.7 x 5.3 x 5.5 cm (SAG x AP x TRV). The kidney is normal in size, contour, and echogenicity. Renal cortical thickness is normal. No renal calculi or hydronephrosis. A benign lower pole 1.3 cm Bosniak class I renal cyst is noted which requires no additional imaging or follow up. No solid renal masses are seen. LEFT KIDNEY: 12.6 x 6.0 x 3.8 cm (SAG x AP x TRV). The kidney is normal in size, contour, and echogenicity. Renal cortical thickness is normal. There is a lower pole 1.5 x 0.9 x 1.8 cm echogenic focus seen with twinkle artifact suggestive of a stone which can also be seen on the lumbar spine radiographs. No focal parenchymal lesions or hydronephrosis. IMPRESSION: Nonobstructing 1.8 cm left lower pole renal calculus. Assessment & Plan Assessment & Plan (1) Hematuria: Code(s): R31.9 - Hematuria, unspecified Category: Medical (2) Renal calculus, left: Code(s): N20.0 - Calculus of kidney Category: Medical (3) Adenocarcinoma of prostate: Code(s): C61 - Malignant neoplasm of prostate Category: Medical Plan renal US-11/10/23-- left renal stone. repeat PSA --12/30/23--8.25. Discussed treatment plan prostate biopsy and cystoscopy. I have discussed further evaluation with CT urogram, Plan prostate bx and cystoscopy to be scheduled in the OR. Orders: Orders AMB Urinalysis Automated Today Z13.9 - Encounter for screening, unspecified Medications: New dutasteride (Avodart) 0.5 mg PO DAILY 90 caps 3RF Coding Diagnoses Hematuria R31.9 Renal calculus, left N20.0 Adenocarcinoma of prostate C61
== END 2024-04-11 14:37 | disposition home or self-care (01) ==
PROVIDERS: PCP Internal Medicine; Visit Provider Urology
DX: Z13.9 Encounter for screening, unspecified (principal)

== ENCOUNTER → 2024-04-11 12:57 | Outpatient (BNVA) | payer OTHER, SELFPAY | PROVIDERS: PCP Internal Medicine; Visit Provider Urology | DX: R31.9 Hematuria, unspecified (principal); N20.0 Calculus of kidney; C61 Malignant neoplasm of prostate; Z71.2 Person consulting for explanation of examination or test findings | CPT/HCPCS: 81003; 99212 ==

== ENCOUNTER 2024-05-14 08:28 | Outpatient (AMB) | payer OTHER, SELFPAY ==
--- NOTE | 2024-05-14 08:47 | MHC.OFFVIS ---
Vital Signs 05/14/24 08:52 Weight 185 lb 3.013 oz BP 118/64 Blood Pressure Location Lt brachial Position Sitting Pulse 85 Pulse Oximetry (%) 95 Oxygen Delivery Method Room Air Intake Visit Reasons: Asthma Converting Technician Required: Yes Converting Technician Name: In dept. Dara Krausrio Diamond Setter: Diamond Setter offered & declined Allergies No Known Allergies Allergy (Verified 05/14/24 08:54) Medication List - Last Reconciled 05/14/24 by Deanna Figueredo LPN albuterol sulfate 2.5 mg (3 mL) inhalation Q4-6H PRN albuterol sulfate 90 mcg/actuation 2 puffs inhalation Q6H PRN 30 days amlodipine 5 mg PO DAILY 30 days cholecalciferol (vitamin D3) 50 mcg PO DAILY 90 days dutasteride (Avodart) 0.5 mg PO DAILY fluticasone propion-salmeterol 115-21 mcg/actuation (Advair HFA) 2 puffs inhalation Q12H levofloxacin 500 mg PO DAILY 3 days melatonin 5 mg PO BID 30 days olanzapine 15 mg PO DAILY 30 days tizanidine 4 mg PO Q8H PRN 30 days trazodone 50 mg PO BEDTIME PRN 30 days HPI HPI Asthma: Details: Lorenzo is a pleasant 59 year old male, never smoker, with underlying asthma, HTN and intellectual disability. Today he presents for routine visit and is accompanied by sister. He has been using Advair HFA in addition to albuterol MDI/nebs with moderate effect. His sister notes that he continues with have intermittent wheezing and labored breathing after walking the dogs. He denies any visits to urgent care or hospitalizations since the last visit due to respiratory distress. Of note, patient recently dx with adenocarcinoma of the prostate in April and under the care of urology. After further discussion, patient not using inhalers effectively and when he took out inhalers for demonstration to use with aerochamber, two advair inhalers were , (2023 and 2021). [facility] Medical History Lumbar spondylosis Anxiety Renal calculus, left Elevated PSA Obesity (BMI 30-39.9) Vitamin D deficiency Intellectual disability Insomnia Benign essential hypertension Bipolar depression Asthma Surgical History H/O colonoscopy Hx of appendectomy Family History Other Family history unknown Social History Household Members: Family Housing: House Are you a primary student career development specialist to a significant other at home: No Do you presently have visiting nurse or other home services: No 75 years or older and lives alone: No Alcohol intake: never Patient Tobacco Use Status: Former Tobacco user e-Cigarette/Vaping Use: Never Used Second Hand Smoke Exposure: No service: No Current occupational status: disabled Cognitive needs: No Hearing needs: Yes Vision needs: Yes Review of Systems Const Denies chills, Denies excessive sweating, Denies fever(s), Denies headache(s) and Denies night sweats Eyes Denies dry eyes, Denies irritation and Denies itchy eyes ENT Reports Normal hearing present, Denies headache(s), Denies nasal congestion, Denies nasal discharge, Denies post nasal drip and Denies sore throat Card Denies chest pain, Denies chest pain at rest, Denies chest pain with activity, Denies claudication, Denies leg edema, Denies orthopnea and Denies paroxysmal nocturnal dyspnea Resp Denies chest congestion, Denies excessive phlegm production, Denies pain on inspiration, Denies pain with cough and Denies stridor Musc Denies myalgias Neuro Reports Normal hearing present and Denies headache(s) Endo Denies excessive sweating Benjamín/Lymph Denies lymphadenopathy Aller/Immun Denies itchy eyes and Denies seasonal rhinorrhea Physical Exam Vital Signs: Last Vital Signs Pulse 85 05/14/24 08:52 BP 118/64 05/14/24 08:52 Pulse Ox 95 05/14/24 08:52 Oxygen Delivery Method Room Air 05/14/24 08:52 Const General: cooperative, healthy appearing, comfortable, no acute distress, well developed and alert Nutritional Appearance: obese Orientation/consciousness: patient oriented x3 Limitations: other limitations (developmental delay) HEENT Head: Yes normal to inspection, Yes normocephalic and Yes atraumatic Ears: hearing grossly normal bilaterally and external ears normal Eyes General: appearance normal, both eyes and all related structures Eyelids: Yes eyelids normal Sclerae: sclerae normal EOM: EOMs intact bilaterally Neck Neck: Yes normal visual inspection and Yes no lymphadenopathy Lymphatic: no lymphadenopathy noted Chest Chest palpation & inspection: normal inspection of the chest Resp Effort & Inspection: normal respiratory effort, able to speak in complete sentences, no audible wheezes, no cough, no stridor, not tachypneic, no tripod positioning and no use of accessory muscles Auscultation: diminished lung sounds Cardio Jugular venous distension: no JVD Rate: regular rate Rhythm: regular rhythm Skin Other: warm, dry General skin exam: no rashes or lesions noted Neuro General: patient oriented x3 Cranial nerves: Yes Normal hearing present Cognition (Neuro): normal cognition Gait exam (Neuro): Normal gait present Extrem General: Yes normal to inspection, Yes capillary refill normal, Yes no clubbing, cyanosis or edema and Yes no pedal edema Psych Appearance: grossly normal and well kempt Speech and movement: Normal speech and movement present and Clear speech present Affect: normal affect Attitude: cooperative Thought process: Normal thought process present Thought content: Normal thought content present Insight: Limited insight present (Psych) Judgement: Limited judgement present (Psych) Assessment & Plan Assessment & Plan (1) Asthma: Code(s): J45.909 - Unspecified asthma, uncomplicated Category: Medical Qualifiers: Asthma complication type: uncomplicated Asthma persistence: unspecified Asthma severity: unspecified severity Qualified Code(s): J45.909 - Unspecified asthma, uncomplicated Plan Reeducated patient and sister on inhaler use with an aerochamber, which was given in office for home use. Discussed importance of checking expiration dates on medications and sister will verify that advair inhaler at home is not . For future appointments instructed patient to bring all respiratory medications to ever visit. All questions were answered and patient is in agreement of plan. Will follow up in 3 months or sooner if needed. Medications: Refilled fluticasone propion-salmeterol 115-21 mcg/actuation (Advair HFA) 2 puffs inhalation Q12H 12 grams 6RF Coding Level of Care Code Est Pt Level 4 (79001) Diagnoses Uncomplicated asthma, unspecified asthma severity, unspecified whether persistent J45.909 Asthma complication type: uncomplicated Asthma persistence: unspecified Asthma severity: unspecified severity
[2024-05-14 08:52] VITALS: BP 118/64; PULSE 85; O2SAT 95
== END 2024-05-14 09:15 | disposition home or self-care (01) ==
PROVIDERS: PCP Internal Medicine; Visit Provider Nurse Practitioner Family
DX: J45.909 Unspecified asthma, uncomplicated (principal)
CPT/HCPCS: 99214

== ENCOUNTER → 2024-05-14 08:28 | Outpatient (BNVA) | payer OTHER, SELFPAY | PROVIDERS: PCP Internal Medicine; Visit Provider Nurse Practitioner Family | DX: J45.909 Unspecified asthma, uncomplicated (principal) | CPT/HCPCS: 99212 ==

== ENCOUNTER 2024-06-05 08:36 | Outpatient (REF) | payer OTHER, SELFPAY ==
[2024-06-05 09:49] LABS: Anion Gap 15 (12-20); Blood Urea Nitrogen 11 mg/dL (9-16); Calcium 9.2 mg/dL (8.4-10.2); Carbon Dioxide 28 mmol/L (22-29); Chloride 105 mmol/L (96-108); Estimated Glomerular Filt Rate > 60; Glucose Random 95 mg/dL (60-115); Potassium 4.3 mmol/L (3.3-5.1); Sodium 144 mmol/L (135-145)
== END 2024-06-05 08:37 | disposition home or self-care (01) ==
LOC: HO.LAB 08:36
PROVIDERS: PCP Internal Medicine; Visit Provider Urology
DX: R31.9 Hematuria, unspecified (principal)
CPT/HCPCS: 36415; 80048

== ENCOUNTER 2024-07-23 16:05 | Outpatient (AMB) | payer OTHER, SELFPAY ==
--- NOTE | 2024-07-23 16:22 | A.OFFPC_ITS ---
Vital Signs 07/23/24 16:23 Height 5 ft 5 in Weight 184 lb 8 oz BMI 30.7 BP 124/86 Blood Pressure Location Lt brachial Position Sitting Pulse 88 Pulse Source Pulse Oximeter Pulse Oximetry (%) 96 Oxygen Delivery Method Room Air Intake Visit Reasons: annual exam Studio Owner Required: No Accompanied by: Self / Same As Patient Allergies No Known Allergies Allergy (Verified 07/23/24 17:09) Medication List - Last Reconciled 07/23/24 by Ha Little MD albuterol sulfate 2.5 mg (3 mL) inhalation Q4-6H PRN albuterol sulfate 90 mcg/actuation 2 puffs inhalation Q6H PRN 30 days amlodipine 5 mg PO DAILY 30 days cholecalciferol (vitamin D3) 50 mcg PO DAILY 90 days dutasteride (Avodart) 0.5 mg PO DAILY fluticasone propion-salmeterol 115-21 mcg/actuation (Advair HFA) 2 puffs inhalation Q12H levofloxacin 500 mg PO DAILY 3 days melatonin 5 mg PO BID 30 days olanzapine 15 mg PO DAILY 30 days tizanidine 4 mg PO Q8H PRN 30 days trazodone 50 mg PO BEDTIME PRN 30 days Tobacco use date assessed: 07/23/24 Dental Screening Dental Screen Date: 07/23/24 Did you have a dental visit in the last 12 months?: No Did you have a dental problem in the last 6 months where you did not have access to dental care?: No Was dental information given to patient?: No HPI annual exam HPI Details Patient comes in today for his annual physical examination States that he has been experiencing increased pain over his lower back on both sides for the past month or so - he appears to be pointing more towards the areas of the gluteus medius muscles bilaterally as the areas where the pain is more pronounced States that his lower back pains feel worse with prolonged sitting and his lower back feels slightly better when he is up and walking around He denies any recent injury or trauma to his lower back He is also scheduled for an MRI for his prostate cancer next month on August 10, 2024 and his sister is requesting for Rx for something to help him relax for the procedure or he may not be able to sit through the procedure itself States that he will then be leaving for [facility] for a few days' vacation following his MRI Patient states that he feels okay otherwise He denies any headaches or dizziness Denies any chest pains, no increased SOB No nausea/vomiting, no abdominal pain No change in bowel habits noted He denies any acute urinary symptoms He was not able to get his follow up labs done prior to his appointment today He had his colonoscopy last done in March [address] Mars - he had a polyp removed that was hyperplastic but he was recommended to get repeat colonoscopy in 1 to 2 years due to poor prep His sister would also like for him to get his hearing checked as he has been getting more and more hard of hearing over the past year [facility] Medical History Lumbar spondylosis Anxiety Renal calculus, left Elevated PSA Obesity (BMI 30-39.9) Vitamin D deficiency Intellectual disability Insomnia Benign essential hypertension Bipolar depression Asthma Surgical History H/O colonoscopy Hx of appendectomy Family History Other Family history unknown Social History Household Members: Family Housing: House Are you a primary pediatric acute care unit nurse to a significant other at home: No Do you presently have visiting nurse or other home services: No 75 years or older and lives alone: No Alcohol intake: never Patient Tobacco Use Status: Former Tobacco user e-Cigarette/Vaping Use: Never Used Second Hand Smoke Exposure: No service: No Current occupational status: disabled Cognitive needs: No Hearing needs: Yes Vision needs: Yes Questionnaire PHQ-9 Over the last 2 weeks, how often have you been bothered by any of the following problems? 1. Little interest or pleasure in doing things: several days 2. Feeling down, depressed, or hopeless: several days 3. Trouble falling or staying asleep, or sleeping too much: several days 4. Feeling tired or having little energy: several days 5. Poor appetite or overeating: not at all 6. Feeling bad about yourself - or that you are a failure or have let yourself or your family down: not at all 7. Trouble concentrating on things, such as reading the newspaper or watching television: not at all 8. Moving or speaking so slowly that other people could have noticed. Or the opposite - being so fidgety or restless that you have been moving around a lot more than usual: several days 9. Thoughts that you would be better off or of hurting yourself in some way: not at all Total score: 5 Depression Screening Interpretation: Positive Depression Screening Follow-up: Existing condition and In treatment Depression Screening Done: Yes 56083 - PHQ-9 Billing: Yes Source: Developed by Drs. Ayo Ramirez, Jocelyn Mireles, Adriel Hugo and colleagues, with an educational anil from [employer]. Thrive Questionnaire Date Thrive assessed: 07/23/24 I am a: Parent/Caregiver What is your living situation today?: I have a steady place to live Within the past 12 months, did the food you bought not last and you didn't have the money to get more?: Sometimes True Within the past 12 months, did you worry whether your food would run out before you got money to buy more?: Sometimes True Do you have trouble paying for medicines?: No Do you have trouble getting transportation to medical appointments?: No Do you have trouble paying your heating and electricity bill?: No Do you have trouble taking care of your child, family member or friend?: Yes Do you have trouble with day-to-day activities such as bathing, preparing meals, shopping, managing finances, etc.?: Yes Are you currently unemployed and looking for a job?: No Are you interested in more education?: No Please select the resources that you would like help with: None Currently or been in a relationship where the following occur: No concerns reported THRIVE Score: 2 AUDIT C Alcohol Use Questionnaire (AUDIT-C) 1. How often do you have a drink containing alcohol?: Monthly or less 2. How many drinks containing alcohol do you have on a typical day when you are drinking?: 1 or 2 3. How often do you have six or more drinks on one occasion?: Never Total Score: 1 Score Reviewed/Action Taken: Yes ANJELICA-7 AMB Questionnaire ANJELICA-7 Date ANJELICA - 7 assessed: 07/23/24 Feeling nervous, anxious, or on edge: 2 = More than half the days Not being able to stop or control worryin = More than half the days Worrying too much about different things: 1 = Several days Trouble relaxin = More than half the days Being so restless that it is hard to sit still: 1 = Several days Becoming easily annoyed or irritable: 2 = More than half the days Feeling afraid as if something awful might happen: 2 = More than half the days Total ANJELICA-7 score (0-4 normal; 5-9 mild; 10-14 moderate; 15-21 severe): 12 Source: Developed by Drs. Ayo Ramirez, Jocelyn Mireles, Adriel Hugo and colleagues, with an educational anil from [employer]. Review of Systems Const Denies chills, Denies fatigue, Denies fever(s), Denies headache(s), Denies malaise and Denies weakness Eyes Denies blurry vision, Denies change in vision, Denies irritation and Denies itchy eyes ENT Denies dysphagia, Denies dizziness, Denies otalgia, Denies headache(s), Reports hearing loss (per patient's sister), Denies nasal congestion, Denies neck pain, Denies odynophagia and Denies sore throat Card Denies chest pain, Denies rapid heart rate, Denies irregular heart rhythm, Denies palpitations and Denies dyspnea Resp Denies chest congestion, Denies cough, Denies dyspnea and Denies wheezing GI Denies abdominal pain, Denies bloating, Denies constipation, Denies dysphagia, Denies heartburn, Denies diarrhea, Denies nausea, Denies odynophagia and Denies vomiting Denies hematuria, Denies difficulty urinating, Denies dysuria, Denies urinary frequency and Denies urinary urgency Musc Reports back pain (increased over the lower back on both sides over the past month), Denies arthralgias, Denies joint swelling, Denies muscle weakness and D enies neck pain Skin/Breast Denies change in pigmentation, Denies lesions, Denies rash and Denies unusual bruising Neuro Denies dizziness, Denies headache(s), Denies paresthesias and Denies weakness Endo Denies fatigue and Denies palpitations Aller/Immun Denies itchy eyes and Denies wheezing Physical exam (Primary Care) Vital Signs: Last Vital Signs Pulse 88 07/23/24 16:23 BP 124/86 07/23/24 16:23 Pulse Ox 96 07/23/24 16:23 Oxygen Delivery Method Room Air 07/23/24 16:23 BMI result Body Mass Index 30.7 Tobacco/Smoking Status: Tobacco use Status Tobacco use date assessed 07/23/24 07/23/24 16:27 Patient Tobacco Use Status Former Tobacco user 07/23/24 16:27 e-Cigarette/Vaping Use Never Used 07/23/24 16:27 PHQ-9: PHQ-9 Score PHQ-9: Total score 5 07/23/24 16:33 Depression Screening Interpretation: Positive Depression Screening Follow-up: Existing condition and In treatment Thrive Assessment: Date of Thrive Assessment Date Thrive assessed 07/23/24 07/23/24 16:27 Currently or been in a relationship where the following occur: No concerns reported Const General: no acute distress, alert and awake Orientation/consciousness: patient oriented x3 HENMT Head: Yes normocephalic and Yes atraumatic Ears: external ears normal, TM's normal bilaterally and EAC's normal General nose exam: No nasal discharge present Face and sinus: Yes normal facial exam and Yes sinuses nontender Teeth and gingiva: dentition normal Throat: Yes posterior oropharynx normal and Yes tonsils normal (no TP congestion) Eyes Eyelids: Yes eyelids normal Conjunctivae: conjunctivae normal Pupils: Equal, round and reactive pupils present EOM: EOMs intact bilaterally Neck Neck: Yes supple and No lymphadenopathy Thyroid: Thyroid normal Resp Auscultation: clear to auscultation bilaterally, no rales and no wheezes Cardio Rate: regular rate Rhythm: regular rhythm Heart sounds: Murmur heart sound present systolic soft, II/ and at the apex GI Palpation (GI): Soft to palpation, nontender and No hepatosplenomegaly present Auscultation: normal bowel sounds General: Yes no CVA tenderness Back/Spine/Pelvis Back: no CVA tenderness Thoracic/Lumbar Spine: No lumbar spinal tenderness Sacroiliac joints: bilaterally tender to palpation Skin Lesions: no lesions Rashes: no rashes Neuro General: patient oriented x3, moves all extremities, no focal motor deficits and CN's II-XI intact bilaterally Cranial nerves: Yes Equal, round and reactive pupils present Cognition (Neuro): normal cognition Gait exam (Neuro): Normal gait present Extrem General: Yes no clubbing, cyanosis or edema Coding Level of Care Code Est Pt Prev Care 40-64y(33715) Diagnoses Annual physical exam Z00.00 Benign essential hypertension I10 Uncomplicated asthma, unspecified asthma severity, unspecified whether persistent J45.909 Asthma severity: unspecified severity Asthma persistence: unspecified Asthma complication type: uncomplicated Cardiac murmur R01.1 Vitamin D deficiency E55.9 Renal calculus, left N20.0 Adenocarcinoma of prostate C61 Lumbar spondylosis M47.816 Acute bilateral low back pain without sciatica M54.50 Chronicity: acute Sciatica presence: without sciatica Hearing loss, unspecified hearing loss type, unspecified laterality H91.90 Hearing loss type: unspecified Laterality: unspecified laterality Intellectual disability F79 Insomnia, unspecified type G47.00 Insomnia type: unspecified Bipolar depression F31.9 Obesity (BMI 30-39.9) E66.9 Additional Codes PHQ-9 - 88984 - PHQ-9 Billing: Yes ([id number]) Assessment & Plan Assessment & Plan (1) Annual physical exam: Code(s): Z00.00 - Encounter for general adult medical examination without abnormal findings Category: Medical Plan: Check labs - have advised patient that his labs have been previously ordered and all he has to do is present to the lab early one morning before eating breakfast and get them done JULIUS He just had his screening colonoscopy done in March 2024 but due to poor prep, has been recommended to get it repeated in 1 to 2 years (2) Benign essential hypertension: Code(s): I10 - Essential (primary) hypertension Category: Medical Plan: Reinforced low sodium diet - goal is systolic BP of 120 mm or less Continue Amlodipine 5 mg QD (3) Asthma: Code(s): J45.909 - Unspecified asthma, uncomplicated Category: Medical Qualifiers: Asthma severity: unspecified severity Asthma persistence: unspecified Asthma complication type: uncomplicated Qualified Code(s): J45.909 - Unspecified asthma, uncomplicated Plan: Continue Advair HFA 115-21 mcg 2 inhalations BID and Albuterol HFA 2 inhalations Q 6 hours PRN Follow up with pulmonary as scheduled (4) Cardiac murmur: Code(s): R01.1 - Cardiac murmur, unspecified Category: Medical Plan: Echocardiogram done on 10/29/2022 revealed normal left ventricular size, thickness, systolic function, and wall motion. The visually estimated ejection fraction is between 55-60%.? Diastolic function is normal for age. Mildly increased right ventricular cavity size.? There is normal right ventricular systolic function. The right atrium is mildly dilated. There is trace MR and trace TR noted, which are most likely the source of his audible cardiac murmur (5) Vitamin D deficiency: Code(s): E55.9 - Vitamin D deficiency, unspecified Category: Medical Plan: His Vitamin D level was low when last checked in July 2023 at 15.6 ng/ml Continue Vitamin D3 2000 units QD Will have patient recheck his Vitamin D level JULIUS for follow up (6) Renal calculus, left: Code(s): N20.0 - Calculus of kidney Category: Medical Plan: (+) left renal calculus is seen incidentally on his lumbar spine x-rays done in July 2023 Renal US done in October 2023 revealed (+) nonobstructing 1.8 cm left lower pole renal calculus Follow up with urology as scheduled (7) Adenocarcinoma of prostate: Code(s): C61 - Malignant neoplasm of prostate Category: Medical Plan: This was recently diagnosed in April 2024 when he was being evaluated and worked up by urology for his elevated PSA and he underwent cystoscopy and prostate Bx He is scheduled for an MRI next month for further evaluation - per request, Rx for Lorazepam for premedication sent in to his pharmacy Continue Dutasteride 0.5 mg QD Follow up with urology as scheduled for continuing work up and management (8) Lumbar spondylosis: Code(s): M47.816 - Spondylosis without myelopathy or radiculopathy, lumbar region Category: Medical Plan: Reinforced activity and weight-lifting restrictions to avoid aggravating his back pain Lumbar spine x-rays done in July 2023 revealed (+) multilevel mild lumbar spondylosis and mild degenerative disc disease at L3-L4 through L5-S1 Continue Tizanidine 4 mg TID PRN Have offered to refer him to Pain Management as well but patient declined - states that he will consider this and call back for referral if he decides to go to pain management (9) Bilateral low back pain: Code(s): M54.50 - Low back pain, unspecified Category: Medical Qualifiers: Chronicity: acute Sciatica presence: without sciatica Qualified Code(s): M54.50 - Low back pain, unspecified Plan: Patient has been recently complaining of increased pain over his lower lumbar areas bilaterally, corresponding to the areas of the gluteus medius muscles bilaterally as well as over the SI joints on both sides Will send him for SI joint x-rays for further evaluation Because of his recent Dx of adenocarcinoma of the prostate, will also send him for repeat x-rays of the lumbar spine for further evaluation (10) Hearing loss: Code(s): H91.90 - Unspecified hearing loss, unspecified ear Category: Medical Qualifiers: Hearing loss type: unspecified Laterality: unspecified laterality Qualified Code(s): H91.90 - Unspecified hearing loss, unspecified ear Plan: Per patient's sister, will refer him for hearing evaluation (11) Intellectual disability: Code(s): F79 - Unspecified intellectual disabilities Category: Medical Plan: Patient reportedly had some tests and imaging studies done at [facility] in 2022 and was advised that he has cognitive defects due to some abnormalities on his head scan Have tried to obtain copies of these from [facility] for review but we have not yet received any information or correspondence from them so far (12) Insomnia: Code(s): G47.00 - Insomnia, unspecified Category: Medical Qualifiers: Insomnia type: unspecified Qualified Code(s): G47.00 - Insomnia, unspecified Plan: Sleep hygiene reinforced Continue Trazodone 50 mg Q HS PRN and Melatonin 5 mg BID (13) Bipolar depression: Code(s): F31.9 - Bipolar disorder, unspecified Category: Medical Plan: Continue Olanzapine 15 mg Q HS Follow up with psychiatry as scheduled (14) Obesity (BMI 30-39.9): Code(s): E66.9 - Obesity, unspecified Category: Medical Plan: Reinforced diet/exercise as tolerated/lose weight Plan Follow up in 4 months Orders: Orders XR lumbar spine 2-3V Today M54.50 - Low back pain, unspecified XR sacroiliac joint min 3V Today M53.3 - Sacrococcygeal disorders, not elsewhere classified, M54.50 - Low back pain, unspecified Referrals Speech and Hearing Referral H91.90 - Unspecified hearing loss, unspecified ear Medications: New lorazepam Take 1 tablet 30 minutes before procedure as needed for anxiety. May repeat x 1 dose after 10 to 15 minutes if needed. 1 day 2 tabs 0RF anxiety
[2024-07-23 16:23] VITALS: BP 124/86; PULSE 88; O2SAT 96; BMI 30.7
== END 2024-07-23 17:20 | disposition home or self-care (01) ==
LOC: HO.HMCH 16:06
PROVIDERS: PCP Internal Medicine; Visit Provider Internal Medicine
DX: Z00.00 Encounter for general adult medical examination without abnormal findings (principal); C61 Malignant neoplasm of prostate; F31.9 Bipolar disorder, unspecified; I10 Essential (primary) hypertension; J45.909 Unspecified asthma, uncomplicated; R01.1 Cardiac murmur, unspecified; E55.9 Vitamin D deficiency, unspecified; N20.0 Calculus of kidney; M47.816 Spondylosis without myelopathy or radiculopathy, lumbar region; M54.50 Low back pain, unspecified; F79 Unspecified intellectual disabilities

== ENCOUNTER → 2024-07-23 16:05 | Outpatient (BNVA) | payer OTHER, SELFPAY | PROVIDERS: PCP Internal Medicine; Visit Provider Internal Medicine | DX: Z00.00 Encounter for general adult medical examination without abnormal findings (principal); I10 Essential (primary) hypertension; J45.909 Unspecified asthma, uncomplicated; R01.1 Cardiac murmur, unspecified; E55.9 Vitamin D deficiency, unspecified; N20.0 Calculus of kidney; C61 Malignant neoplasm of prostate; M47.816 Spondylosis without myelopathy or radiculopathy, lumbar region; M54.50 Low back pain, unspecified; H91.90 Unspecified hearing loss, unspecified ear; F79 Unspecified intellectual disabilities; G47.00 Insomnia, unspecified; F31.9 Bipolar disorder, unspecified; E66.9 Obesity, unspecified; Z68.30 Body mass index [BMI] 30.0-30.9, adult; Z71.3 Dietary counseling and surveillance | CPT/HCPCS: 96127; 99396 ==

== ENCOUNTER 2024-07-31 08:30 | Outpatient (REF) | payer OTHER, SELFPAY ==
[2024-07-31 08:43] LABS: MANUAL DIFF FLAG NO
[2024-07-31 09:18] LABS: Basophils Absolute Auto 0.1 X10*3/uL (0.0-0.2); Basophils Percent Auto 0.5 % (0-2); Eosinophils Absolute Auto 0.2 X10*3/uL (0.0-0.4); Eosinophils Percent Auto 2.5 % (0-4); Hematocrit 47.9 % (42.0-52.0); Imm Gran Abs Auto 0.05 X10*3/uL (0.00-0.03); Imm Gran Pct Auto 0.5 % (0.0-0.4); Lymphocytes Absolute Auto 3.3 X10*3/uL (1.2-4.9); Lymphocytes Percent Auto 33.6 % (20-40); Mean Corpuscular HGB Conc 31.3 g/dl (31.0-36.0); Mean Corpuscular Hemoglobin 27.3 pg (27.0-33.0); Mean Corpuscular Volume 87.2 fL (80.0-98.0); Mean Platelet Volume 9.7 fL (9.4-12.4); Monocytes Absolute Auto 0.7 X10*3/uL (0.1-1.2); Monocytes Percent Auto 7.5 % (2-11); Neutrophils Absolute Auto 5.4 x10*3/uL (2.0-8.3); Neutrophils Percent Auto 55.4 % (45-73); Platelet Count 324 X10*3/uL (160-400); Red Blood Count 5.49 X10*6/uL (4.60-5.80); Red Cell Distribution Width 14.2 % (11.0-16.0); White Blood Count 9.7 X10*3/uL (4.8-10.8)
[2024-07-31 09:33] LABS: Appearance Urine Clear; Color Urine Yellow; Glucose Urine UA Negative (Negative); Leukocyte Esterase Urine Moderate (2+) (Negative); Nitrite Urine Negative (Negative); PH 6.5 (5.0-9.0); Specific Gravity - Urine 1.015 (1.005-1.025); UMIC TRIGGER UACC YES; Urine Blood Negative (Negative); Urine Ketones Negative (Negative); Urine Protein Negative (Neg-Trace)
[2024-07-31 09:35] LABS: Bacteria Urine None Seen (None Seen); Hyaline Casts Urine 0-2 /LPF (0-2); RBC Urine 0-2 /HPF (0-2); Squamous Epithelial Cell Urine 0-2 /HPF (0-2); UACC Culture Trigger YES; WBC Urine 21-50 /HPF (0-5)
[2024-07-31 10:06] LABS: Blood Urea Nitrogen 12 mg/dL (9-16)
[2024-07-31 10:11] LABS: Alanine Aminotransferase 32 U/L (0-40); Albumin Level 4.2 g/dL (3.5-5.0); Alkaline Phosphatase 140 U/L (39-117); Anion Gap 8 (12-20); Aspartate Amino Transferase 23 U/L (5-37); Bilirubin Total 0.4 mg/dL (0.0-1.0); Blood Urea Nitrogen 12 mg/dL (9-16); Calcium 9.3 mg/dL (8.4-10.2); Carbon Dioxide 29 mmol/L (22-29); Chloride 109 mmol/L (96-108); Cholesterol 145 mg/dL (<200); Estimated Glomerular Filt Rate > 60; Glucose Fasting 101 mg/dL (60-99); HDL Cholesterol 47 mg/dL (>40); LDL Cholesterol Calculated 85 mg/dL (<100); Potassium 4.4 mmol/L (3.3-5.1); Sodium 142 mmol/L (135-145); Total Protein 7.4 g/dL (6.5-8.0); Triglycerides 66 mg/dL (<150)
[2024-07-31 10:15] LABS: TSH reflex Free T4 1.62 uIU/mL (0.32-4.0)
[2024-07-31 10:20] LABS: Prostate Specific Antigen 4.96 ng/mL (<0.05-4.0)
== END 2024-07-31 08:31 | disposition home or self-care (01) ==
LOC: HO.LAB 08:30
PROVIDERS: Urology; PCP Internal Medicine; Visit Provider Internal Medicine
DX: Z00.00 Encounter for general adult medical examination without abnormal findings (principal); D64.9 Anemia, unspecified; E78.00 Pure hypercholesterolemia, unspecified; N40.0 Benign prostatic hyperplasia without lower urinary tract symptoms; C61 Malignant neoplasm of prostate; R31.9 Hematuria, unspecified; R35.0 Frequency of micturition; N20.0 Calculus of kidney; R97.20 Elevated prostate specific antigen [PSA]; Z12.5 Encounter for screening for malignant neoplasm of prostate
CPT/HCPCS: 36415; 80053; 80061; 81001; 84153; 84443; 84520; 85025; 87086

== ENCOUNTER → 2024-08-10 08:28 | Outpatient (BNV) | payer OTHER, SELFPAY | PROVIDERS: PCP Internal Medicine; Visit Provider Radiology Diagnostic Radiology | DX: C61 Malignant neoplasm of prostate (principal) | CPT/HCPCS: 72197 ==

== ENCOUNTER 2024-08-10 08:29 | Outpatient (REF) | payer OTHER, SELFPAY ==
--- NOTE | ~2024-08-10 | MR_ITS ---
EXAMINATION: MR PROSTATE WITHOUT THEN WITH IV CONTRAST HISTORY: C61 - Malignant neoplasm of prostate; elevated PSA TECHNIQUE: 1.5T body coil survey of the pelvis was performed. Phase array coil imaging of the prostate was performed in multiplanar high resolution axial, coronal, sagittal fast spin echo T2 and axial T1 weighted imaging sequences. Axial diffusion imaging at intermediate and high field performed with ADC mapping. Next, mL Gadavist was given by intravenous infusion, and dynamic axial imaging performed. COMPARISON: There are no prior studies for comparison. CLINICAL DATA: Most recent PSA: 4.96 ng/mL on 07/31/2024. PSA Density: 0.12 ng/mL squared Prostate Biopsy: Positive biopsy on 03/27/2024 with a Conway score 3+3 = 6. FINDINGS: Prostate size: 6.1 x 4.5 x 2.9 cm. Calculated prostate volume is 41.4 mL. Hemorrhage: None. Transitional Zone: There is moderate heterogeneous nodular hypertrophy of the transitional zone. Peripheral Zone: There are areas of interest in the peripheral zone as follows: Lesion #1, in the right lateral peripheral zone in the mid gland (series 7 image 23), measuring 4 mm in size: DWI PI-RADS v2.1 score: 4 T2 PI-RADS v2.1 score: 4 DCE PI-RADS v2.1 score: + Overall PI-RADS v2.1 score: 4 Capsular contact: yes Extracapsular extension: None Seminal vesicle invasion: None Neurovascular bundle involvement: None Lesion #2, a linear area of restricted diffusion in the posteromedial peripheral zone at the apex (series 9, image 24): DWI PI-RADS v2.1 score: 3 T2 PI-RADS v2.1 score: 2 DCE PI-RADS v2.1 score: - Overall PI-RADS v2.1 score: 3 Capsular contact: yes Extracapsular extension: None Seminal vesicle invasion: None Neurovascular bundle involvement: None Seminal Vesicles/Ejaculatory Ducts: Symmetric and normal in signal and caliber. Pelvic Lymph Nodes: No obturator or internal iliac lymph nodes meeting size criteria for adenopathy. Marrow Signal: Normal marrow signal and enhancement without focal lesion identified. MR/MR Prostate wo/w con IMPRESSION: Small focus of abnormal signal intensity in the lateral aspect of the right peripheral zone in the mid gland, suspicious for clinically significant prostate carcinoma. PI-RADS 4: High (clinically significant cancer is likely to be present) PI-RADS Assessment Categories PI-RADS 1: Very low (clinically significant cancer is highly unlikely to be present) PI-RADS 2: Low (clinically significant cancer is unlikely to be present) PI-RADS 3: Intermediate (the presence of clinically significant cancer is equivocal) PI-RADS 4: High (clinically significant cancer is likely to be present) PI-RADS 5: Very high (clinically significant cancer is highly likely to be present) [employer]. MR Prostate Imaging Reporting and Data System version 2.1. [email or web address] Electronically signed by: Ayo Live MD 08/10/2024 10:20 AM EDT
[2024-08-10] MEDS: gadobutroL 10 ML VIAL IVPUSH (09:42)
== END 2024-08-10 08:30 | disposition home or self-care (01) ==
LOC: HO.MRI 08:29
PROVIDERS: PCP Internal Medicine; Visit Provider Urology
DX: C61 Malignant neoplasm of prostate (principal); R31.9 Hematuria, unspecified; R35.0 Frequency of micturition
CPT/HCPCS: 72197; A9585

== ENCOUNTER 2024-08-29 09:22 | Outpatient (REF) | payer OTHER, SELFPAY | END 2024-08-29 09:23 | disposition home or self-care (01) | LOC: HO.SH 09:22 | PROVIDERS: Visit Provider Internal Medicine | DX: Z01.118 Encounter for examination of ears and hearing with other abnormal findings (principal); H90.3 Sensorineural hearing loss, bilateral | CPT/HCPCS: 92553; 92567; 92588 ==

== ENCOUNTER 2024-09-18 11:30 | Outpatient (AMB) | payer OTHER, SELFPAY ==
--- NOTE | 2024-09-18 11:31 | A.OFFVIS_ITS ---
Intake Visit Reasons: MRI Follow Up Intake Note: Patient is present for MRI F/U Urology Medication:DUTASTERIDE Antibiotic Allergy:NONE Blood Thinner:NONE Technical Communication Teacher Required: No Technical Communication Teacher Services: Technical Communication Teacher Present (Chiquita Raza) Information Interpreted: non-clinical & clinical Allergies No Known Allergies Allergy (Verified 09/18/24 11:32) Medication List - Last Reconciled 09/18/24 by Jj Oh MD albuterol sulfate 2.5 mg (3 mL) inhalation Q4-6H PRN albuterol sulfate 90 mcg/actuation 2 puffs inhalation Q6H PRN 30 days amlodipine 5 mg PO DAILY 30 days cholecalciferol (vitamin D3) 50 mcg PO DAILY 90 days dutasteride (Avodart) 0.5 mg PO DAILY fluticasone propion-salmeterol 115-21 mcg/actuation (Advair HFA) 2 puffs inhalation Q12H levofloxacin 500 mg PO DAILY 3 days lorazepam Take 1 tablet 30 minutes before procedure as needed for anxiety. May repeat x 1 dose after 10 to 15 minutes if needed. 1 day melatonin 5 mg PO BID 30 days olanzapine 15 mg PO DAILY 30 days tizanidine 4 mg PO Q8H PRN 30 days trazodone 50 mg PO BEDTIME PRN 30 days HPI Comments Details: 09/18/24--59-year-old male presenting for follow-up on prostate-related health issues. H/O left renal stone. telehealth, video attempted. Significant past medical history includes Benign Prostatic Hyperplasia and prostate cancer on the left side of the prostate. Previously administered dutasteride has shown effectiveness as evidenced by a drop in PSA levels from 8 to 4.9. Recent MRI revealed new areas of concern on the right side of the prostate. These findings prompt consideration of a repeat biopsy to assess for any oncological progression or new development. Plan continue avodart. Schedule repeat prostate biospy, MRI targeted. Results - Labs: - PSA - 12/30/23-8.25 ng/mL PSA -- 07/31/24--4.96 ng/mL - Tests and Diagnostics: - MRI -08/10/24--revealed two areas of concern on the right side of the prostate. Lesion #1, in the right lateral peripheral zone in the mid gland (series 7 image 23), measuring 4 mm in size: PI-RADS 4: High (clinically significant cancer is likely to be present); Lesion #2, a linear area of restricted diffusion in the posteromedial peripheral zone at the apex (series 9, image 24): PI-RADS v2.1 score: 3 Intermediate (the presence of clinically significant cancer is equivocal) US Renal- 11/10/2023--Nonobstructing 1.8 cm left lower pole renal calculus. 04/11/24--s/p bx 03/27/24--est vol 62.3 mL--vamsi grade 6, left mid and apex. I have discussed treatment options to include Radical prostatectomy: discussed that in this operation, the prostate gland is removed including the seminal vesicles and sometimes nearby lymph nodes. The major possible side effects of radical prostatectomy are: Urinary incontinence and Erectile dysfunction Radiation Therapy, External beam radiation vs Brachytherapy Active Surveillance- reasonable in localized early diagnosed prostate cancer. Plan active surveillance; MRI and PSA in [4] months. 01/09/24-- Lorenzo is here with his brother for fu elevated PSA and microscopic hematuria, LV 11/18/23 - renal US left renal stone. repeat PSA --12/30/23--8.25. Discussed treatment plan prostate biopsy and cystoscopy. I have discussed further evaluation with CT urogram, Plan prostate bx and cystoscopy to be scheduled in the OR. 11/18/23--Lorenzo is a 58-year-old Kinyarwanda-speaking male who is here for evaluation due to elevated PSA. He is here with his sister. eligibility worker services used. The patient was seen by his PCP with complaints of back pain. Renal ultrasound was ordered. I have reviewed imaging. Final radiology report pending. Images suggest a left kidney stone. Urinalysis is significant for microscopic hematuria. Comorbidity history of nicotine use (patient states he smoked for about 4-5 years and quit over 10 years ago.) PSA--07/09/2023--7.29 PFS Medical History Lumbar spondylosis Anxiety Renal calculus, left Elevated PSA Obesity (BMI 30-39.9) Vitamin D deficiency Intellectual disability Insomnia Benign essential hypertension Bipolar depression Asthma Surgical History H/O colonoscopy Hx of appendectomy Family History Other Family history unknown Social History Household Members: Family Housing: House Are you a primary home care liaison to a significant other at home: No Do you presently have visiting nurse or other home services: No 75 years or older and lives alone: No Alcohol intake: never Patient Tobacco Use Status: Former Tobacco user e-Cigarette/Vaping Use: Never Used Second Hand Smoke Exposure: No service: No Current occupational status: disabled Cognitive needs: No Hearing needs: Yes Vision needs: Yes Review of Systems Const All systems reviewed & are unremarkable except as noted in HPI and below Reports no additional complaints Eyes Reports no additional complaints ENT Reports no additional complaints Card Reports no additional complaints Resp Reports no additional complaints GI Reports no additional complaints Reports as per HPI Musc Reports no additional complaints Skin/Breast Reports system reviewed and no additional complaints, except as documented Neuro Reports no additional complaints Psych Reports no additional complaints Endo Reports no additional complaints Benjamín/Lymph Reports no additional complaints Aller/Immun Reports no additional complaints Telehealth Telehealth Telehealth Platform: [facility] Location of provider rendering services: practice address Location of patient: address on file Patient Identification confirmed using: Name, : Yes Telehealth method: video Patient verbally consented to treatment: Yes Patient verbally consented to billing insurance company: Yes Patient informed of any privacy concerns related to visit: Yes Results Reviewed Results Reviewed: Date of Service: 08/10/24 EXAMINATION: MR PROSTATE WITHOUT THEN WITH IV CONTRAST HISTORY: C61 - Malignant neoplasm of prostate; elevated PSA TECHNIQUE: 1.5T body coil survey of the pelvis was performed. Phase array coil imaging of the prostate was performed in multiplanar high resolution axial, coronal, sagittal fast spin echo T2 and axial T1 weighted imaging sequences. Axial diffusion imaging at intermediate and high field performed with ADC mapping. Next, mL Gadavist was given by intravenous infusion, and dynamic axial imaging performed. COMPARISON: There are no prior studies for comparison. CLINICAL DATA: Most recent PSA: 4.96 ng/mL on 07/31/2024. PSA Density: 0.12 ng/mL squared Prostate Biopsy: Positive biopsy on 03/27/2024 with a Vamsi score 3+3 = 6. FINDINGS: Prostate size: 6.1 x 4.5 x 2.9 cm. Calculated prostate volume is 41.4 mL. Hemorrhage: None. Transitional Zone: There is moderate heterogeneous nodular hypertrophy of the transitional zone. Peripheral Zone: There are areas of interest in the peripheral zone as follows: Lesion #1, in the right lateral peripheral zone in the mid gland (series 7 image 23), measuring 4 mm in size: DWI PI-RADS v2.1 score: 4 T2 PI-RADS v2.1 score: 4 DCE PI-RADS v2.1 score: + Overall PI-RADS v2.1 score: 4 Capsular contact: yes Extracapsular extension: None Seminal vesicle invasion: None Neurovascular bundle involvement: None Lesion #2, a linear area of restricted diffusion in the posteromedial peripheral zone at the apex (series 9, image 24): DWI PI-RADS v2.1 score: 3 T2 PI-RADS v2.1 score: 2 DCE PI-RADS v2.1 score: - Overall PI-RADS v2.1 score: 3 Capsular contact: yes Extracapsular extension: None Seminal vesicle invasion: None Neurovascular bundle involvement: None Seminal Vesicles/Ejaculatory Ducts: Symmetric and normal in signal and caliber. Pelvic Lymph Nodes: No obturator or internal iliac lymph nodes meeting size criteria for adenopathy. Marrow Signal: Normal marrow signal and enhancement without focal lesion identified. IMPRESSION: Small focus of abnormal signal intensity in the lateral aspect of the right peripheral zone in the mid gland, suspicious for clinically significant prostate carcinoma. PI-RADS 4: High (clinically significant cancer is likely to be present) PI-RADS Assessment Categories PI-RADS 1: Very low (clinically significant cancer is highly unlikely to be present) PI-RADS 2: Low (clinically significant cancer is unlikely to be present) PI-RADS 3: Intermediate (the presence of clinically significant cancer is equivocal) PI-RADS 4: High (clinically significant cancer is likely to be present) PI-RADS 5: Very high (clinically significant cancer is highly likely to be present) Collected: 03/27/24--[facility] Received: 03/27/24 Diagnosis Prostate, needle core biopsies: A. Left base lateral: Rare atypical gland. B. Left base medial: Rare atypical glands. C. Left mid lateral: Prostatic adenocarcinoma, Vamsi score 6 (3+3), grade group 1, 1 mm total (discontinuous involvement), 7% of core. D. Left mid medial: Benign prostatic tissue. E. Left apex lateral: Prostatic adenocarcinoma, Lamona score 6 (3+3), grade group 1, 0.5 mm, 4% of core. F. Left apex medial: Prostatic adenocarcinoma, Vamsi score 6 (3+3), grade group 1, 3 mm, 20% of tissue, 1 of 2 cores involved. G. Right base lateral: Benign prostatic tissue. H. Right base medial: Benign prostatic tissue. I. Right mid lateral: Benign prostatic tissue. J. Right mid medial: Benign prostatic tissue. K. Right apex lateral: Benign prostatic tissue. L. Right apex medial: Benign prostatic tissue. Data synopsis - Prostate needle biopsy Histologic type: Adenocarcinoma, acinar type Histologic grade: Lamona score: 6 (3+3) % of pattern 4: 0% % of pattern 5: 0% Grade group: 1 Tumor quantitation: Patient: Lorenzo Haider Age/Sex: 59/M MR#: [id number] Page 1 of 4 Date of Service: 11/10/23 US RETROPERITONEAL LIMITED (RENAL ONLY) CLINICAL INFORMATION: Calculus of kidney. COMPARISON: Lumbar spine 07/09/2023 TECHNIQUE: Real-time imaging of the kidneys. FINDINGS: RIGHT KIDNEY: 10.7 x 5.3 x 5.5 cm (SAG x AP x TRV). The kidney is normal in size, contour, and echogenicity. Renal cortical thickness is normal. No renal calculi or hydronephrosis. A benign lower pole 1.3 cm Bosniak class I renal cyst is noted which requires no additional imaging or follow up. No solid renal masses are seen. LEFT KIDNEY: 12.6 x 6.0 x 3.8 cm (SAG x AP x TRV). The kidney is normal in size, contour, and echogenicity. Renal cortical thickness is normal. There is a lower pole 1.5 x 0.9 x 1.8 cm echogenic focus seen with twinkle artifact suggestive of a stone which can also be seen on the lumbar spine radiographs. No focal parenchymal lesions or hydronephrosis. IMPRESSION: Nonobstructing 1.8 cm left lower pole renal calculus. Assessment & Plan Assessment & Plan (1) Hematuria: Code(s): R31.9 - Hematuria, unspecified Category: Medical (2) Renal calculus, left: Code(s): N20.0 - Calculus of kidney Category: Medical (3) Adenocarcinoma of prostate: Code(s): C61 - Malignant neoplasm of prostate Category: Medical Plan Schedule repeat prostate biospy, MRI targeted. Contact Sridevi Pisano, pt's sister [phone] to ensure phone communication is directed correctly. Medications: Refilled dutasteride (Avodart) 0.5 mg PO DAILY 90 caps 3RF Patient Instructions: The patient had an opportunity to ask questions regarding treatment plan. The patient expressed understanding and agreement with the above treatment plan. The patient is aware they should contact our office by phone for worsening of their current condition or the appearance of new symptoms. Compliance is encouraged with any medications and followup testing that is ordered. It is a privilege to be allowed the opportunity to participate in the urologic care of your patient. If you have any questions or concerns regarding treatment for the above conditions please do not hesitate to contact me. The office telephone contact is [phone]. This note is constructed in part using voice recognition software. While every effort has been made to ensure accuracy therapy assistant errors may have been included. Yours sincerely, Jj Oh MD Coding Level of Care Code Tele Est Pt Level 4 (46565) Diagnoses Hematuria R31.9 Renal calculus, left N20.0 Adenocarcinoma of prostate C61
== END 2024-09-18 12:29 | disposition home or self-care (01) ==
LOC: HO.HUSH 11:30
PROVIDERS: PCP Internal Medicine; Visit Provider Urology
DX: R31.9 Hematuria, unspecified (principal); N20.0 Calculus of kidney; C61 Malignant neoplasm of prostate
CPT/HCPCS: 99214

== ENCOUNTER → 2024-09-18 11:30 | Outpatient (BNVA) | payer OTHER, SELFPAY | PROVIDERS: PCP Internal Medicine; Visit Provider Urology ==

== ENCOUNTER 2024-10-15 09:41 | Outpatient (AMB) | payer OTHER, SELFPAY ==
--- NOTE | 2024-10-15 10:05 | A.OFFVIS_ITS ---
Vital Signs 10/15/24 10:06 Height 5 ft 5 in Weight 184 lb 1.376 oz BMI 30.6 BP 128/70 Blood Pressure Location Rt brachial Position Sitting Pulse 79 Pulse Source Pulse Oximeter Pulse Oximetry (%) 95 Oxygen Delivery Method Room Air Intake Visit Reasons: Asthma Business Information Consultant Required: Yes Business Information Consultant Language: Outside Sales Account Representative Services: Business Information Consultant Present Business Information Consultant Name: Dara Gonzales LM Allergies No Known Allergies Allergy (Verified 10/15/24 10:10) HPI HPI Asthma: Details: Lorenzo is a pleasant 59 year old male, never smoker, with underlying asthma, HTN, dx with adenocarcinoma of the prostate in April, under the care of urology, and intellectual disability. Today he presents for routine visit and is accompanied by sister. He has been using Advair HFA in addition to albuterol MDI/nebs with good control of respiratory symptoms. He denies any visits to urgent care or hospitalizations since the last visit due to respiratory distress. [facility] Medical History Lumbar spondylosis Anxiety Renal calculus, left Elevated PSA Obesity (BMI 30-39.9) Vitamin D deficiency Intellectual disability Insomnia Benign essential hypertension Bipolar depression Asthma Surgical History H/O colonoscopy Hx of appendectomy Family History Other Family history unknown Social History Household Members: Family Housing: House Are you a primary ocular care technologist to a significant other at home: No Do you presently have visiting nurse or other home services: No 75 years or older and lives alone: No Alcohol intake: never Patient Tobacco Use Status: Former Tobacco user e-Cigarette/Vaping Use: Never Used Second Hand Smoke Exposure: No service: No Current occupational status: disabled Cognitive needs: No Hearing needs: Yes Vision needs: Yes Review of Systems Const Denies chills, Denies excessive sweating, Denies fever(s), Denies headache(s) and Denies night sweats Eyes Denies dry eyes, Denies irritation and Denies itchy eyes ENT Reports Normal hearing present, Denies headache(s), Denies nasal congestion, Denies nasal discharge, Denies post nasal drip and Denies sore throat Card Denies chest pain, Denies chest pain at rest, Denies chest pain with activity, Denies claudication, Denies leg edema, Denies dyspnea, Denies dyspnea on exertion, Denies orthopnea and Denies paroxysmal nocturnal dyspnea Resp Denies chest congestion, Denies cough, Denies excessive phlegm production, Denies pain on inspiration, Denies pain with cough, Denies dyspnea, Denies dyspnea on exertion, Denies stridor and Denies wheezing Musc Denies myalgias Neuro Reports Normal hearing present and Denies headache(s) Endo Denies excessive sweating Benjamín/Lymph Denies lymphadenopathy Aller/Immun Denies itchy eyes, Denies seasonal rhinorrhea and Denies wheezing Physical Exam Vital Signs: Last Vital Signs Pulse 79 10/15/24 10:06 BP 128/70 10/15/24 10:06 Pulse Ox 95 10/15/24 10:06 Oxygen Delivery Method Room Air 10/15/24 10:06 BMI result Body Mass Index 30.6 Const General: cooperative, healthy appearing, comfortable, no acute distress, well developed and alert Nutritional Appearance: obese Orientation/consciousness: patient oriented x3 Limitations: other limitations (developmental delay) HEENT Head: Yes normal to inspection, Yes normocephalic and Yes atraumatic Ears: hearing grossly normal bilaterally and external ears normal Eyes General: appearance normal, both eyes and all related structures Eyelids: Yes eyelids normal Sclerae: sclerae normal EOM: EOMs intact bilaterally Neck Neck: Yes normal visual inspection and Yes no lymphadenopathy Lymphatic: no lymphadenopathy noted Chest Chest palpation & inspection: normal inspection of the chest Resp Effort & Inspection: normal respiratory effort, able to speak in complete sentences, no audible wheezes, no cough, no stridor, not tachypneic, no tripod positioning and no use of accessory muscles Auscultation: diminished lung sounds Cardio Jugular venous distension: no JVD Rate: regular rate Rhythm: regular rhythm Skin Other: warm, dry General skin exam: no rashes or lesions noted Neuro General: patient oriented x3 Cranial nerves: Yes Normal hearing present Cognition (Neuro): normal cognition Gait exam (Neuro): Normal gait present Extrem General: Yes normal to inspection, Yes capillary refill normal, Yes no clubbing, cyanosis or edema and Yes no pedal edema Psych Appearance: grossly normal and well kempt Speech and movement: Normal speech and movement present and Clear speech present Affect: normal affect Attitude: cooperative Thought process: Normal thought process present Thought content: Normal thought content present Insight: Limited insight present (Psych) Judgement: Limited judgement present (Psych) Assessment & Plan Assessment & Plan (1) Asthma: Code(s): J45.909 - Unspecified asthma, uncomplicated Category: Medical Qualifiers: Asthma complication type: uncomplicated Asthma persistence: unspecified Asthma severity: unspecified severity Qualified Code(s): J45.909 - Unspecified asthma, uncomplicated Plan At this Lorenzo reports good control of respiratory symptoms on current regimen, advised to continue Advair and albuterol MDI. He is aware to call if symptoms become less controlled. All questions were answered and patient is in agreement of plan. Will follow up in 3-6 months or sooner if needed. Coding Level of Care Code Est Pt Level 3 (16867) Diagnoses Uncomplicated asthma, unspecified asthma severity, unspecified whether persistent J45.909 Asthma complication type: uncomplicated Asthma persistence: unspecified Asthma severity: unspecified severity
[2024-10-15 10:06] VITALS: BP 128/70; PULSE 79; O2SAT 95; BMI 30.6
== END 2024-10-15 10:30 | disposition home or self-care (01) ==
LOC: HO.HPS 09:42
PROVIDERS: PCP Internal Medicine; Visit Provider Nurse Practitioner Family
DX: J45.909 Unspecified asthma, uncomplicated (principal)
CPT/HCPCS: 99213

== ENCOUNTER → 2024-10-15 09:41 | Outpatient (BNVA) | payer OTHER, SELFPAY | PROVIDERS: PCP Internal Medicine; Visit Provider Nurse Practitioner Family | DX: I10 Essential (primary) hypertension (principal); J45.909 Unspecified asthma, uncomplicated; C61 Malignant neoplasm of prostate | CPT/HCPCS: 99212 ==

== ENCOUNTER 2024-11-26 10:50 | Outpatient (AMB) | payer OTHER, SELFPAY ==
[2024-11-26 11:01] VITALS: BP 110/84; PULSE 80; O2SAT 94; BMI 31.0
--- NOTE | 2024-11-26 11:01 | A.OFFPC_ITS ---
Vital Signs 11/26/24 11:01 Height 5 ft 5 in Weight 186 lb 2 oz BMI 31.0 BP 110/84 Blood Pressure Location Lt brachial Position Sitting Pulse 80 Pulse Source Pulse Oximeter Pulse Oximetry (%) 94 Oxygen Delivery Method Room Air Intake Visit Reasons: 4 month f/u Management Instructor Required: No Accompanied by: Self / Same As Patient Allergies No Known Allergies Allergy (Verified 11/26/24 11:43) Medication List - Last Reconciled 11/26/24 by Ha Little MD albuterol sulfate 2.5 mg (3 mL) inhalation Q4-6H PRN albuterol sulfate 90 mcg/actuation 2 puffs inhalation Q6H PRN 30 days amlodipine 5 mg PO DAILY 90 days cholecalciferol (vitamin D3) 50 mcg PO DAILY 90 days dutasteride (Avodart) 0.5 mg PO DAILY fluticasone propion-salmeterol 115-21 mcg/actuation (Advair HFA) 2 puffs inhalation Q12H lorazepam Take 1 tablet 30 minutes before procedure as needed for anxiety. May repeat x 1 dose after 10 to 15 minutes if needed. 1 day melatonin 5 mg PO BID 30 days olanzapine 15 mg PO DAILY 30 days tizanidine 4 mg PO Q8H PRN 30 days trazodone 50 mg PO BEDTIME PRN 30 days vitamin E (dl, acetate) 180 mg PO DAILY zinc gluconate 50 mg PO DAILY Tobacco use date assessed: 11/26/24 Dental Screening Dental Screen Date: 11/26/24 Did you have a dental visit in the last 12 months?: No Did you have a dental problem in the last 6 months where you did not have access to dental care?: No Was dental information given to patient?: No HPI 4 month f/u HPI Details Patient comes in today for his follow up visit He had an MRI done back in July 2024 that revealed 2 areas of concern and has been advised to undergo MRI-guided Bx for further evaluation and this is scheduled next month on 12/10/2024 His PSA level has dropped from 8 to 4.9 with Dutasteride Tx over the past year Patient states that he still has recurrent low back pain but feels okay otherwise He denies any headaches or dizziness Denies any chest pains, no increased SOB No nausea/vomiting, no abdominal pain No change in bowel habits noted Needs a couple of his Rx refilled, including his Tizanidine, which he states helps with his low back pain PFSH Medical History Lumbar spondylosis Anxiety Renal calculus, left Elevated PSA Obesity (BMI 30-39.9) Vitamin D deficiency Intellectual disability Insomnia Benign essential hypertension Bipolar depression Asthma Surgical History H/O colonoscopy Hx of appendectomy Family History Other Family history unknown Social History Household Members: Family Housing: House Are you a primary managed care specialist to a significant other at home: No Do you presently have visiting nurse or other home services: No 75 years or older and lives alone: No Alcohol intake: never Patient Tobacco Use Status: Former Tobacco user e-Cigarette/Vaping Use: Never Used Second Hand Smoke Exposure: No service: No Current occupational status: disabled Cognitive needs: No Hearing needs: Yes Vision needs: Yes Questionnaire PHQ-9 Over the last 2 weeks, how often have you been bothered by any of the following problems? 1. Little interest or pleasure in doing things: several days 2. Feeling down, depressed, or hopeless: several days 3. Trouble falling or staying asleep, or sleeping too much: several days 4. Feeling tired or having little energy: several days 5. Poor appetite or overeating: not at all 6. Feeling bad about yourself - or that you are a failure or have let yourself or your family down: not at all 7. Trouble concentrating on things, such as reading the newspaper or watching television: not at all 8. Moving or speaking so slowly that other people could have noticed. Or the opposite - being so fidgety or restless that you have been moving around a lot more than usual: several days 9. Thoughts that you would be better off or of hurting yourself in some way: not at all Total score: 5 Depression Screening Interpretation: Positive Depression Screening Follow-up: Existing condition and In treatment Depression Screening Done: Yes 49748 - PHQ-9 Billing: Yes Source: Developed by Drs. Ayo Ramirez, Jocelyn Mireles, Adriel Hugo and colleagues, with an educational anil from [employer] in [place]. Thrive Questionnaire Date Thrive assessed: 11/26/24 I am a: Parent/Caregiver What is your living situation today?: I have a steady place to live Within the past 12 months, did the food you bought not last and you didn't have the money to get more?: Sometimes True Within the past 12 months, did you worry whether your food would run out before you got money to buy more?: Sometimes True Do you have trouble paying for medicines?: No Do you have trouble getting transportation to medical appointments?: No Do you have trouble paying your heating and electricity bill?: No Do you have trouble taking care of your child, family member or friend?: Yes Do you have trouble with day-to-day activities such as bathing, preparing meals, shopping, managing finances, etc.?: Yes Are you currently unemployed and looking for a job?: No Are you interested in more education?: No Please select the resources that you would like help with: None Currently or been in a relationship where the following occur: No concerns reported THRIVE Score: 2 AUDIT C Alcohol Use Questionnaire (AUDIT-C) 1. How often do you have a drink containing alcohol?: Monthly or less 2. How many drinks containing alcohol do you have on a typical day when you are drinking?: 1 or 2 3. How often do you have six or more drinks on one occasion?: Never Total Score: 1 Score Reviewed/Action Taken: Yes ANJELICA-7 AMB Questionnaire ANJELICA-7 Date ANJELICA - 7 assessed: 11/26/24 Feeling nervous, anxious, or on edge: 2 = More than half the days Not being able to stop or control worryin = More than half the days Worrying too much about different things: 1 = Several days Trouble relaxin = More than half the days Being so restless that it is hard to sit still: 1 = Several days Becoming easily annoyed or irritable: 2 = More than half the days Feeling afraid as if something awful might happen: 2 = More than half the days Total ANJELICA-7 score (0-4 normal; 5-9 mild; 10-14 moderate; 15-21 severe): 12 Source: Developed by Drs. Ayo Ramirez, Jocelyn Mireles, Adriel Hugo and colleagues, with an educational anil from [employer] in [place]. Review of Systems Const Denies chills, Denies fatigue, Denies fever(s) and Denies headache(s) ENT Denies dysphagia, Denies dizziness, Denies otalgia, Denies headache(s), Reports hearing loss (per patient's sister), Denies neck pain, Denies odynophagia and Denies sore throat Card Denies chest pain, Denies rapid heart rate, Denies irregular heart rhythm, Denies palpitations and Denies dyspnea Resp Denies chest congestion, Denies cough and Denies dyspnea GI Denies abdominal pain, Denies constipation, Denies dysphagia, Denies heartburn, Denies diarrhea, Denies nausea, Denies odynophagia and Denies vomiting Denies difficulty urinating, Denies dysuria and Denies urinary frequency Musc Reports back pain (on and off), Denies arthralgias and Denies neck pain Skin/Breast Denies rash Neuro Denies dizziness, Denies headache(s) and Denies paresthesias Endo Denies fatigue and Denies palpitations Physical exam (Primary Care) Vital Signs: Last Vital Signs Pulse 80 11/26/24 11:01 BP 110/84 11/26/24 11:01 Pulse Ox 94 11/26/24 11:01 Oxygen Delivery Method Room Air 11/26/24 11:01 BMI result Body Mass Index 31.0 Tobacco/Smoking Status: Tobacco use Status Tobacco use date assessed 11/26/24 11/26/24 11:09 Patient Tobacco Use Status Former Tobacco user 11/26/24 11:09 e-Cigarette/Vaping Use Never Used 11/26/24 11:09 PHQ-9: PHQ-9 Score PHQ-9: Total score 5 11/26/24 11:44 Depression Screening Interpretation: Positive Depression Screening Follow-up: Existing condition and In treatment Thrive Assessment: Date of Thrive Assessment Date Thrive assessed 11/26/24 11/26/24 11:09 Currently or been in a relationship where the following occur: No concerns reported Const General: no acute distress and alert HENMT Throat: Yes posterior oropharynx normal and Yes tonsils normal (no TP conges tion) Neck Neck: Yes supple and No lymphadenopathy Thyroid: Thyroid normal Resp Auscultation: clear to auscultation bilaterally, no rales and no wheezes Cardio Rate: regular rate Rhythm: regular rhythm Heart sounds: Murmur heart sound present systolic soft, II/ and at the apex GI Palpation (GI): Soft to palpation and nontender Auscultation: normal bowel sounds General: Yes no CVA tenderness Back/Spine/Pelvis Back: no CVA tenderness Thoracic/Lumbar Spine: No lumbar spinal tenderness Sacroiliac joints: bilaterally tender to palpation Skin Rashes: no rashes Extrem General: Yes no clubbing, cyanosis or edema Results Reviewed Results Reviewed: Laboratory Tests 06/05/24 07/31/24 07/31/24 08:48 08:37 08:40 WBC 9.7 Hgb 15.0 Hct 47.9 Plt Count 324 Sodium 144 142 Potassium 4.3 4.4 Creatinine 0.89 0.74 Estimated GFR > 60 > 60 Random Glucose 95 Fasting Glucose 101 H Calcium 9.2 D 9.3 AST 23 ALT 32 Triglycerides 66 Cholesterol 145 LDL Cholesterol, Calc 85 HDL Cholesterol 47 Prostate Specific Ag 4.96 H TSH 1.62 Ur Specific [place] 1.015 Urine Protein Negative Urine Glucose (UA) Negative Urine Blood Negative Urine Nitrite Negative Ur Leukocyte Esterase Moderate (2+) H Coding Level of Care Code Est Pt Level 4 (30860) Diagnoses Benign essential hypertension I10 Uncomplicated asthma, unspecified asthma severity, unspecified whether persistent J45.909 Asthma severity: unspecified severity Asthma persistence: unspecified Asthma complication type: uncomplicated Cardiac murmur R01.1 Vitamin D deficiency E55.9 Renal calculus, left N20.0 Adenocarcinoma of prostate C61 Lumbar spondylosis M47.816 Intellectual disability F79 Insomnia, unspecified type G47.00 Insomnia type: unspecified Bipolar depression F31.9 Obesity (BMI 30-39.9) E66.9 Additional Codes PHQ-9 - 85322 - PHQ-9 Billing: Yes ([id number]) Assessment & Plan Assessment & Plan (1) Benign essential hypertension: Code(s): I10 - Essential (primary) hypertension Category: Medical Plan: Reinforced low sodium diet - goal is systolic BP of 120 mm or less Continue Amlodipine 5 mg QD (2) Asthma: Code(s): J45.909 - Unspecified asthma, uncomplicated Category: Medical Qualifiers: Asthma severity: unspecified severity Asthma persistence: unspecified Asthma complication type: uncomplicated Qualified Code(s): J45.909 - Unspecified asthma, uncomplicated Plan: Controlled Continue Advair HFA 115-21 mcg 2 inhalations BID and Albuterol HFA 2 inhalations Q 6 hours PRN Follow up with pulmonary as scheduled (3) Cardiac murmur: Code(s): R01.1 - Cardiac murmur, unspecified Category: Medical Plan: Echocardiogram done on 10/29/2022 revealed normal left ventricular size, thickness, systolic function, and wall motion. The visually estimated ejection fraction is between 55-60%.? Diastolic function is normal for age. Mildly increased right ventricular cavity size.? There is normal right ventricular systolic function. The right atrium is mildly dilated. There is trace MR and trace TR noted, which are most likely the source of his audible cardiac murmur(s) (4) Vitamin D deficiency: Code(s): E55.9 - Vitamin D deficiency, unspecified Category: Medical Plan: Continue Vitamin D3 2000 units QD (5) Renal calculus, left: Code(s): N20.0 - Calculus of kidney Category: Medical Plan: (+) left renal calculus is seen incidentally on his lumbar spine x-rays done in July 2023 Renal US done in October 2023 revealed (+) nonobstructing 1.8 cm left lower pole renal calculus Patient has had no acute symptoms related to his renal calculi recently Follow up with urology as scheduled (6) Adenocarcinoma of prostate: Code(s): C61 - Malignant neoplasm of prostate Category: Medical Plan: This was recently diagnosed in April 2024 when he was being evaluated and worked up by urology for his elevated PSA and he underwent cystoscopy and prostate Bx MRI of the prostate done back in July 2024 revealed 2 areas of concern on the right side of the prostate and patient is currently scheduled for MRI-guided repeat prostate Bx on 12/10/2024 Continue Dutasteride 0.5 mg QD Follow up with urology as scheduled for continuing work up and management (7) Lumbar spondylosis: Code(s): M47.816 - Spondylosis without myelopathy or radiculopathy, lumbar region Category: Medical Plan: Reinforced activity and weight-lifting restrictions to avoid aggravating his back pain Lumbar spine x-rays done in July 2023 revealed (+) multilevel mild lumbar spondylosis and mild degenerative disc disease at L3-L4 through L5-S1 Continue Tizanidine 4 mg TID PRN - RX refilled Have offered to refer him to Pain Management as well but patient declined - states that he will consider this and call back for referral if he decides to go to pain management (8) Intellectual disability: Code(s): F79 - Unspecified intellectual disabilities Category: Medical Plan: Patient reportedly had some tests and imaging studies done at [facility] in 2022 and was advised that he has cognitive defects due to some abnormalities on his head scan Have tried to obtain copies of these from [facility] for review but we have not yet received any information or correspondence from them so far (9) Insomnia: Code(s): G47.00 - Insomnia, unspecified Category: Medical Qualifiers: Insomnia type: unspecified Qualified Code(s): G47.00 - Insomnia, unspecified Plan: Sleep hygiene reinforced Continue Trazodone 50 mg Q HS PRN and Melatonin 5 mg BID (10) Bipolar depression: Code(s): F31.9 - Bipolar disorder, unspecified Category: Medical Plan: Continue Olanzapine 15 mg Q HS Follow up with psychiatry as scheduled (11) Obesity (BMI 30-39.9): Code(s): E66.9 - Obesity, unspecified Category: Medical Plan: Reinforced diet/exercise as tolerated/lose weight Plan Follow up in early April 2025 Medications: Changed From amlodipine 5 mg PO DAILY 30 days 30 tabs 3RF To amlodipine 5 mg PO DAILY 90 days 90 tabs 1RF Refilled tizanidine 4 mg PO Q8H 30 days PRN 90 tabs 0RF low back pain tizanidine 4 mg PO Q8H PRN 90 tabs 0RF low back pain 30 days amlodipine 5 mg PO DAILY 90 tabs 1RF 90 days
== END 2024-11-26 11:50 | disposition home or self-care (01) ==
LOC: HO.HMCH 10:51
PROVIDERS: PCP Internal Medicine; Visit Provider Internal Medicine
DX: I10 Essential (primary) hypertension (principal); J45.909 Unspecified asthma, uncomplicated; R01.1 Cardiac murmur, unspecified; E55.9 Vitamin D deficiency, unspecified; N20.0 Calculus of kidney; C61 Malignant neoplasm of prostate; M47.816 Spondylosis without myelopathy or radiculopathy, lumbar region; F79 Unspecified intellectual disabilities; G47.00 Insomnia, unspecified; F31.9 Bipolar disorder, unspecified; E66.9 Obesity, unspecified

== ENCOUNTER → 2024-11-26 10:50 | Outpatient (BNVA) | payer OTHER, SELFPAY | PROVIDERS: PCP Internal Medicine; Visit Provider Internal Medicine | DX: I10 Essential (primary) hypertension (principal); J45.909 Unspecified asthma, uncomplicated; R01.1 Cardiac murmur, unspecified; E55.9 Vitamin D deficiency, unspecified; N20.0 Calculus of kidney; C61 Malignant neoplasm of prostate; F79 Unspecified intellectual disabilities; G47.00 Insomnia, unspecified; F31.9 Bipolar disorder, unspecified; E66.9 Obesity, unspecified; M47.816 Spondylosis without myelopathy or radiculopathy, lumbar region; Z68.31 Body mass index [BMI] 31.0-31.9, adult | CPT/HCPCS: 96127; 99212 ==

== ENCOUNTER 2024-12-10 11:16 | Day surgery (SDC) | payer OTHER, SELFPAY ==
[2024-12-07 09:31] VITALS: BMI 29.6
--- NOTE | 2024-12-07 12:36 | HO.ANESPROP2 ---
Documented by User: Erica Prince NP 12/14/24 12:39 HPI - Anesthesia Eval Consult details Narrative: 59yo M for Targeted Prostate Needle Biopsy s/p cysto biopsy 03/2024 with [facility] 4 PMFSH Active Problems Active Problems: All Active Problems Bilateral low back pain (Acute) Sacroiliac joint pain (Acute) Hearing loss (Acute) Adenocarcinoma of prostate (Acute) Hematuria (Acute) Urinary frequency (Acute) Encounter for preoperative pulmonary examination (Acute) Colon cancer screening (Acute) Low back pain (Acute) Annual physical exam (Acute) Overweight (BMI 25.0-29.9) (Acute) Cardiac murmur (Acute) Lumbar spondylosis (Acute) Renal calculus, left (Acute) Elevated PSA (Acute) Intellectual disability (Acute) Obesity (BMI 30-39.9) (Acute) Vitamin D deficiency (Acute) Insomnia (Acute) Bipolar depression (Acute) Benign essential hypertension (Acute) Asthma (Acute) Past Medical History Medical History [place] (hard of hearing) Lumbar spondylosis Anxiety Renal calculus, left Elevated PSA Obesity (BMI 30-39.9) Vitamin D deficiency Intellectual disability Insomnia Benign essential hypertension Bipolar depression Asthma Family History Family History Other Family history unknown Family history of problems with anesthesia: No Surgical History Surgical History (Updated 12/10/24 @ 12:42 by Yamileth Freeman RN) Hx of hernia repair Hx of cystoscopy (03/27/24) H/O colonoscopy (03/07/24) Hx of appendectomy History of Problems with Anesthesia: No Social History Social History Household Members: Family Household Members Other:: sister Housing: House Are you a primary manager respiratory care to a significant other at home: No Do you presently have visiting nurse or other home services: No Alcohol intake: never Patient Tobacco Use Status: Former Tobacco user Tobacco use type: Cigarette e-Cigarette/Vaping Use: Never Used Second Hand Smoke Exposure: No Advance Directives Date on File: 11/26/24 service: No Current occupational status: disabled Cognitive needs: No Hearing needs: Yes Vision needs: Yes Meds Allergies Allergy/AdvReac Type Severity Reaction Status Date / Time No Known Allergies Allergy Verified 12/10/24 12:19 Home Medications ?Medication ?Instructions ?Recorded ?Confirmed ?Last Taken ?Type vitamin E (dl, acetate) 180 mg 180 mg PO DAILY 10/15/24 12/10/24 Unknown History (400 unit) capsule zinc gluconate 50 mg tablet 50 mg PO DAILY 10/15/24 12/10/24 Unknown History Exam Height,Weight and Vital Signs: Height 5 ft 5 in Weight 80.739 kg Pertinent Lab Results Pertinent Lab Results: Laboratory Tests 07/31/24 08:40 WBC 9.7 Hgb 15.0 Hct 47.9 Plt Count 324 Sodium 142 Potassium 4.4 Chloride 109 H Carbon Dioxide 29 BUN 12 Creatinine 0.74 Narrative Narrative: ECHO 2022 Conclusions: - Normal left ventricular size, thickness, systolic function, and wall motion. The visually estimated ejection fraction is between 55-60%. Diastolic function is normal for age. - Mildly increased right ventricular cavity size. There is normal right ventricular systolic function. - The right atrium is mildly dilated. Assessment and Plan Assessment Anesthesia Assessment: Chart Reviewed Final Anesthetic Review Family History of Problems with Anesthesia: No History of Problems with Anesthesia: No Documented by User: Quinn Galvan MD 12/19/24 16:19 [facility] Past Medical History Medical History [place] (hard of hearing) Lumbar spondylosis Anxiety Renal calculus, left Elevated PSA Obesity (BMI 30-39.9) Vitamin D deficiency Intellectual disability Insomnia Benign essential hypertension Bipolar depression Asthma Family History Family History Other Family history unknown Surgical History Surgical History (Updated 12/10/24 @ 12:42 by Yamileth Freeman RN) Hx of hernia repair Hx of cystoscopy (03/27/24) H/O colonoscopy (03/07/24) Hx of appendectomy Social History Social History (Reviewed 11/26/24 @ 11:03 by LESLIE Hoffman Household Members: Family Household Members Other:: sister Housing: House Are you a primary manager respiratory care to a significant other at home: No Do you presently have visiting nurse or other home services: No Alcohol intake: never Patient Tobacco Use Status: Former Tobacco user Tobacco use type: Cigarette e-Cigarette/Vaping Use: Never Used Second Hand Smoke Exposure: No Advance Directives Date on File: 11/26/24 service: No Current occupational status: disabled Cognitive needs: No Hearing needs: Yes Vision needs: Yes Meds Allergies Allergy/AdvReac Type Severity Reaction Status Date / Time No Known Allergies Allergy Verified 12/10/24 12:19 Home Medications ?Medication ?Instructions ?Recorded ?Confirmed ?Last Taken ?Type vitamin E (dl, acetate) 180 mg 180 mg PO DAILY 10/15/24 12/10/24 Unknown History (400 unit) capsule zinc gluconate 50 mg tablet 50 mg PO DAILY 10/15/24 12/10/24 Unknown History Exam Airway Mallampati Class: II TM Dist: <=3cm Neck ROM: Full Heart: ok Lungs: ok Assessment and Plan Assessment Anesthesia Assessment: Anesthesia Plan Discussed Final Anesthetic Review NPO: Yes ASA Class: III Final Preanesthetic Review: No Changes in Pt Med Stat, Meds/Allgs Chart Reviewed, Consent Obtained/Reviewed and Anes Risks/Benef Reviewed Patient Risk: Intermediate Procedure Risk: Low Anesthetic Plan Anesthetic Plan: GA, Agree w/ Assess. and Plan and Other
[2024-12-10 12:18] VITALS: BMI 30.6
[2024-12-10 12:33] VITALS: BP 130/80; PULSE 94; RESP 17; TEMP 36.8; O2SAT 96
[2024-12-10] MEDS: Lactated Ringers 1,000 ML 100 ML IVCONT (12:36)
[2024-12-10 12:44] VITALS: BMI 30.6
--- NOTE | 2024-12-10 13:17 | MHC.SHP ---
Pre-Procedural Eval Section A - 24 Hr Update-Section A only Date of Service: 12/10/24 The patient is an INPATIENT: No Changes since office visit: No Cold of Flu in the past 2 weeks, No New Medical Problems, No Changes in Medication and No Patient answered all questions The patient has been examined within 24 hours of the surgical procedure. The History & Physical has been completed within 30 days and I have reviewed it.: Yes Section B - Complete if H&P > 30 days Chief Complaint: Malignant neoplasm of prostate Details of Present Illness: Perineal MRI ultrasound targeted prostate biopsy Relevant Social History: None Present Medications: see Short Stay Collaborative assessment Medical History: No relevant PMH History of Previous Operations: No relevant previous surgery Allergies: Allergies Allergy/AdvReac Type Severity Reaction Status Date / Time No Known Allergies Allergy Verified 12/10/24 12:19 Review of Systems Sugical H&P ROS: Negative: Constitution, Cardiovascular, Respiratory, Neurological, Psychiatric, Hem-Onc, Allergic/Immunologic, Gastrointestinal, Genitourinary, Musculoskeletal, Integumentary, Endocrine and Eyes/Ears/Nose/Throat Exam Surgical H&P Exam: Normal: HEENT, Normal: Heart, Normal: Lungs, Normal: Extremities, Normal: Abdomen, Normal: Skin and Normal: Neurological Plan Diagnosis/Plan: Unchanged (See above) I have reviewed the history and physical and performed a pertinent physical examination on my patient. No changes have occurred unless specified. Time Spent With Patient Time: Total time managing care of this patient today ____ minutes.
--- NOTE | 2024-12-10 14:15 | W.PM.OPN ---
Operative Note Operative Note Date of Service: 12/10/24 Narrative: Preoperative diagnosis: Elevated PSA Postoperative diagnosis: Elevated PSA Procedure: 1. transrectal ultrasound-guided pudendal nerve block 2. MRI-US fusion image registration performed 3. transperineal ultrasound-guided prostate biopsy 14 core including targets Surgeon: Dr. Prasanth Yarbrough Anesthetic: Sedation plus local Indications for procedure: Elevated PSA - PI-RADS 411 mm right-sided mid zone lesion. Procedure: After informed consent was verified, the patient was brought into the procedure area. Patient identity confirmed. Perioperative antibiotics confirmed. Safety pause time out performed. Anesthesia performed per protocol. Scrotum taped out of operative area. Iodine prep used. Perineal injection of local anesthetic. Digital guided prostate pudendal nerve block performed with 10 cc of 1% lidocaine. 5cc each side. Combination 10cc iodine with 50cc gel was mixed and placed in the rectum. Ultrasound probe was placed per rectum. Ultrasound probe stabilized on a prostate stepper with attached grid. Fengxiafei software and hardware platform used for US image acquisition, US 3D model creation and MRI-US fusion image overlay. Ultrasound placement was made with external grid calibration for height and prostate diameter in both the transverse and longitudinal planes. Grid A-C covering right prostate and c-F covering left prostate. Numbers 1.0-2.5 covering posterior prostate and 2.5-4.0 covering anterior prostate. Once grid calibration was confirmed prostate ultrasound data acquisition was performed in the transverse fashion. The US images were registered to create model boundaries. A three dimensional ultrasound model was created using Fengxiafei software. The model was reviewed against acquired US images. The planned needle targeting, based on prior acquisition of MRI imaging, was overlaid on the ultrasound images and targets confirmed through ultrasound review. Adjustments were then made between real time and projected model targeting locations. Based on pre-planning evaluation 14 targets had been identified. These included 3 targets of the PI-RADS 4 prostate right mid gland transition zone identified lesion/s. He tolerated the procedure well. Was transferred to stable condition in the PACU. Printed instructions regarding antibiotic use and common side effects such as low-grade temperature, potential infection and bleeding were given Pathology: 14 core prostate biopsy CPT 92499 Modifier 22 for complexity of procedure execution (Perineal prostate biopsy) CPT code 76873: Transrectal ultrasound; this is a diagnostic test for evaluation of the prostate and surrounding structures, looking for abnormalities or suspicious areas worrisome for cancer CPT code 09132: Ultrasonic guidance for needle placement (eg, biopsy, aspiration, injection, localization device), imaging supervision and interpretation CPT 16909: 3D rendering with interpretation and reporting of computed tomography (CT), MRI, ultrasound, or other tomographic modality with image postprocessing under concurrent supervision; not requiring image postprocessing on an independent workstation
[2024-12-10 14:28] VITALS: BP 114/81; PULSE 82; RESP 18; TEMP 36.1; O2SAT 93
[2024-12-10 14:33] VITALS: BP 113/90; PULSE 82; RESP 18; O2SAT 99
[2024-12-10 14:38] VITALS: BP 116/83; PULSE 80; RESP 20; O2SAT 100
[2024-12-10 14:43] VITALS: BP 139/97; PULSE 78; RESP 20; O2SAT 100
[2024-12-10 14:58] VITALS: BP 127/80; PULSE 81; RESP 20; TEMP 36.4; O2SAT 96
== END 2024-12-10 15:31 | disposition home or self-care (01) ==
PROVIDERS: PCP Internal Medicine; Visit Provider Urology
PROC: (CPT 55700; principal; 2024-12-10 13:30)
DX: C61 Malignant neoplasm of prostate (principal); R97.20 Elevated prostate specific antigen [PSA]; R31.9 Hematuria, unspecified; N20.0 Calculus of kidney; I10 Essential (primary) hypertension; F79 Unspecified intellectual disabilities; J45.909 Unspecified asthma, uncomplicated; E55.9 Vitamin D deficiency, unspecified; F31.9 Bipolar disorder, unspecified; F41.9 Anxiety disorder, unspecified; E66.9 Obesity, unspecified; Z79.899 Other long term (current) drug therapy; Z79.51 Long term (current) use of inhaled steroids; Z87.891 Personal history of nicotine dependence
CPT/HCPCS: 55706; 88305; 88344; J2003; J2704; J3010

== ENCOUNTER → 2024-12-10 11:16 | Outpatient (BNV) | payer OTHER, SELFPAY | PROVIDERS: PCP Internal Medicine; Visit Provider Urology | DX: R97.20 Elevated prostate specific antigen [PSA] (principal) | CPT/HCPCS: 55706; 76872; 76942 ==

== ENCOUNTER 2025-01-22 09:34 | Outpatient (AMB) | payer OTHER, SELFPAY ==
--- NOTE | 2025-01-22 09:40 | A.OFFVIS_ITS ---
Intake Visit Reasons: Prostate biopsy results Intake Note: braeden presents today for: telehealth prostate bx results urology medications: none blood thinners: none Dive Supervisor Required: Yes Accompanied by: Self / Same As Patient Allergies No Known Allergies Allergy (Verified 01/22/25 09:41) HPI Comments Details: 01/24 Tamazight translation provided by qualified biomedical engineering aide Discussed biopsy finding Confirms low volume, low-grade prostate cancer Continue dutasteride and plan for PSA follow-up in 4 month 09/18/24--59-year-old male presenting for follow-up on prostate-related health issues. H/O left renal stone. FU telehealth, video attempted. Significant past medical history includes Benign Prostatic Hyperplasia and prostate cancer on the left side of the prostate. Previously administered dutasteride has shown effectiveness as evidenced by a drop in PSA levels from 8 to 4.9. Recent MRI revealed new areas of concern on the right side of the prostate. These findings prompt consideration of a repeat biopsy to assess for any oncological progression or new development. Plan continue avodart. Schedule repeat prostate biospy, MRI targeted. Results - Labs: - PSA - 12/30/23-8.25 ng/mL PSA -- 07/31/24--4.96 ng/mL - Tests and Diagnostics: - MRI -08/10/24--revealed two areas of concern on the right side of the prostate. Lesion #1, in the right lateral peripheral zone in the mid gland (series 7 image 23), measuring 4 mm in size: PI-RADS 4: High (clinically significant cancer is likely to be present); Lesion #2, a linear area of restricted diffusion in the posteromedial peripheral zone at the apex (series 9, image 24): PI-RADS v2.1 score: 3 Intermediate (the presence of clinically significant cancer is equivocal) US Renal- 11/10/2023--Nonobstructing 1.8 cm left lower pole renal calculus. 04/11/24--s/p bx 03/27/24--est vol 62.3 mL--vamsi grade 6, left mid and apex. I have discussed treatment options to include Radical prostatectomy: discussed that in this operation, the prostate gland is removed including the seminal vesicles and sometimes nearby lymph nodes. The major possible side effects of radical prostatectomy are: Urinary incontinence and Erectile dysfunction Radiation Therapy, External beam radiation vs Brachytherapy Active Surveillance- reasonable in localized early diagnosed prostate cancer. Plan active surveillance; MRI and PSA in [4] months. 01/09/24-- Lorenzo is here with his brother for fu elevated PSA and microscopic hematuria, LV 11/18/23 - renal US left renal stone. repeat PSA --12/30/23--8.25. Discussed treatment plan prostate biopsy and cystoscopy. I have discussed further evaluation with CT urogram, Plan prostate bx and cystoscopy to be scheduled in the OR. 11/18/23--Lorenzo is a 58-year-old Tamazight-speaking male who is here for evaluation due to elevated PSA. He is here with his sister. electrician rectifier maintenance services used. The patient was seen by his PCP with complaints of back pain. Renal ultrasound was ordered. I have reviewed imaging. Final radiology report pending. Images suggest a left kidney stone. Urinalysis is significant for microscopic hematuria. Comorbidity history of nicotine use (patient states he smoked for about 4-5 years and quit over 10 years ago.) PSA--07/09/2023--7.29 PFSH Medical History [place]) Lumbar spondylosis Anxiety Renal calculus, left Elevated PSA Obesity (BMI 30-39.9) Vitamin D deficiency Intellectual disability Insomnia Benign essential hypertension Bipolar depression Asthma Surgical History (Updated 12/10/24 @ 12:42 by Yamileth Freeman RN) Hx of hernia repair Hx of cystoscopy (03/27/24) H/O colonoscopy (03/07/24) Hx of appendectomy Family History Other Family history unknown Social History Household Members: Family Household Members Other:: sister Housing: House Are you a primary managed care coordinator to a significant other at home: No Do you presently have visiting nurse or other home services: No 75 years or older and lives alone: No Alcohol intake: never Patient Tobacco Use Status: Former Tobacco user Tobacco use type: Cigarette e-Cigarette/Vaping Use: Never Used Second Hand Smoke Exposure: No Advance Directives Date on File: 11/26/24 service: No Current occupational status: disabled Cognitive needs: No Hearing needs: Yes Vision needs: Yes Review of Systems Const All systems reviewed & are unremarkable except as noted in HPI and below Reports no additional complaints Resp Reports no additional complaints GI Reports no additional complaints Reports as per HPI Musc Reports no additional complaints Physical Exam Telemedicine evaluation Appropriate responses Regular breathing rate and rhythm HEENT Head: Yes normal to inspection Ears: hearing grossly normal bilaterally Eyes General: appearance normal, both eyes and all related structures Neck Neck: Yes normal visual inspection Chest Chest palpation & inspection: normal inspection of the chest Resp Effort & Inspection: normal respiratory effort and able to speak in complete sentences Telehealth Telehealth Telehealth Platform: Company Location of provider rendering services: practice address Location of patient: address on file Patient Identification confirmed using: Name, : Yes Telehealth method: video Patient verbally consented to treatment: Yes Patient verbally consented to billing insurance company: Yes Patient informed of any privacy concerns related to visit: Yes Minutes spent on Phone/Video with Pt.: 15 Assessment & Plan Assessment & Plan (1) Renal calculus, left: Code(s): N20.0 - Calculus of kidney Category: Medical (2) Adenocarcinoma of prostate: Code(s): C61 - Malignant neoplasm of prostate Category: Medical Plan Four month follow-up renal ultrasound with PSA Orders: Orders Prostate Specific Antigen 4 Months C61 - Malignant neoplasm of prostate US renal BI 4 Months N20.0 - Calculus of kidney Patient Instructions: This note is constructed using voice recognition software. While every effort has been made to ensure accuracy greaser and oiler errors may have been included. Imaging studies, laboratory and physical exam results were discussed and reviewed in detail. No major barriers to patient understanding were identified. An opportunity to ask questions regarding the treatment plan was provided. All questions were answered. The patient expressed understanding and agreement with the above treatment plan. The patient is aware they should contact our office by phone for worsening of their current condition or the appearance of new urologic symptoms. Compliance is encouraged with any medications and followup testing that is ordered. It is a privilege to participate in the urologic care of your patient. If you have any questions or concerns regarding treatment for the above conditions, or other urologic issues, please do not hesitate to contact me. The office telephone contact is [phone]. Sincerely, Dr Prasanth Yarbrough MD, [facility] - Urology Compassionate Specialist Care for the Genitourinary System Coding Level of Care Code Tele Est Pt Level 3 (13824) Complex EM visit Add On G2211 Diagnoses Renal calculus, left N20.0 Adenocarcinoma of prostate C61
== END 2025-01-22 12:07 | disposition home or self-care (01) ==
LOC: HO.HUSH 09:34
PROVIDERS: PCP Internal Medicine; Visit Provider Urology
DX: N20.0 Calculus of kidney (principal); C61 Malignant neoplasm of prostate
CPT/HCPCS: 99213; G2211

== ENCOUNTER 2025-03-19 08:54 | Outpatient (REF) | payer OTHER, SELFPAY ==
--- OUTSIDE RECORDS SUMMARY | 2025-03-19 18:26 | XMS_ITS | Clinical Summary ---
Author Organization [facility] Address [address] [place] [address] Phone Care Team Providers Care Orthopaedic Physician Assistant Name Role Phone Physician, Pcp Unknown Primary Care Provider Kelly vailable Allergies No known active allergies Medications budesonide-formo teroL (Symbicort) 160-4.5 mcg/actuation inhaler Inhale 2 puffs by mouth 2 (two) times a day. Rinse mouth with water after use to reduce aftertaste and incidence of candidiasis. Do not swallow. 1 each 03/07/20 25 026 Active albuterol 2.5 mg /3 mL (0.083 %) nebulizer solutionIndicati ons:Moderate persistent asthma with exacerbation Take 3 mL (2.5 mg total) by nebulization every 6 (six) hours if needed for wheezing. 30 each 03/07/20 25 025 Active albuterol HFA (PROAIR HFA ; PROVENTIL HFA ; VENTOLIN HFA) 90 mcg/actuation inhaler Inhale 2 puffs by mouth every 6 (six) hours if needed for wheezing. 6.7 g 03/07/20 25 025 Active ipratropium-albu teroL (DUONEB) 0.5-2.5 mg/3 mL nebulizer solutionIndicati ons:Moderate persistent asthma with exacerbation Take 3 mL by nebulization every 6 (six) hours. 360 mL 03/07/20 25 026 Active predniSONE (DELTASONE) 20 mg tablet Take 2 tablets (40 mg total) by mouth 1 (one) time each day for 4 days. 8 each 03/08/20 25 025 Encounters Date Type Department Care Team Description 03/07/2025 3:58 PM EST - 03/07/2025 8:25 PM EST Emergency [facility] Emergency [address] [place] [address] Ximena Smith MD Ziebro, John, MD Moderate persistent asthma with exacerbation (Primary Dx) Discharge Disposition: Home or Self Care from Last 3 Months Medical History Medical History Date Comments Asthma Social History Tobacco Use Types Packs/Day Years Used Date Smoking Tobacco: Never Smokeless Tobacco: Never Tobacco Cessation:Counseling Given: Not Answered Sex and Gender Information Value Date Recorded Sex Assigned at Not on file Legal Sex Male 3:08 PM EST Gender Identity Not on file Sexual Orientation Not on file Obstetrics History Last Filed Vital Signs Vital Sign Reading Time Taken Comments Blood Pressure 133/63 03/07/2025 6:48 PM EST Pulse 115 03/07/2025 6:48 PM EST Temperature 37 C (98.6 F) 03/07/2025 3:30 PM EST Respiratory Rate 20 03/07/2025 6:48 PM EST Oxygen Saturation 96% 03/07/2025 6:48 PM EST Inhaled Oxygen Concentration - - Weight 80.7 kg (178 lb) 03/07/2025 3:30 PM EST Height 152.4 cm (5') 03/07/2025 3:30 PM EST Body Mass Index 34.76 03/07/2025 3:30 PM EST Plan of Treatment Health Maintenance Due Date Last Done Comments Colorectal Cancer Screening: Colonoscopy 1964 DTaP,Tdap,and Td Vaccines (1 - Tdap) 1983 Pneumococcal Vaccine: 50+ Ye ars (1 of 2 - PCV) 1983 RSV Immunization Adult Patie nts (1 - Risk 50-74 years 1-dose series) 2014 Zoster Vaccines (1 of 2) 2014 Depression Screening 05/02/2024 COVID-19 Vaccine (1 - 2024-2 6 season) 2024 Influenza Vaccine (#1) 2024 Cholesterol Screening (Lipid Panel) 03/07/2025 HIV Screening 03/07/2025 Hepatitis C Screening 03/07/2025 Medicare Annual Wellness Visit 03/07/2025 Social Influencers of Health Screening 03/07/2025 HIB Vaccines Aged Out No longer eligi ble based on patient's age to complete this topic HPV Vaccines Aged Out No longer eligi ble based on patient's age to complete this topic Hepatitis A Vaccines Aged Out No long er eligible based on patient's age to complete this topic Hepatitis B Vaccines Aged Out No long er eligible based on patient's age to complete this topic IPV Vaccines Aged Out No longer eligi ble based on patient's age to complete this topic MMR Vaccines Aged Out No longer eligi ble based on patient's age to complete this topic Meningococcal ACWY Vaccine Aged Out N o longer eligible based on patient's age to complete this topic Meningococcal B Vaccine Aged Out No l onger eligible based on patient's age to complete this topic RSV Immunization Patients Un estella 20 months Aged Out No longer eligible b ased on patient's age to complete this topic Varicella Vaccines Aged Out No longer eligible based on patient's age to complete this topic Procedures Procedure Name Priority Date/Time Associated Diagnosis Comments ECG ANNOTATED 03/11/2025 ECG 12-LEAD STAT 03/07/2025 5:01 PM EST XR CHEST 2 VIEWS STAT 03/07/2025 4:26 PM EST from Last 3 Months Results * ECG-Annotated (03/11/2025) Provider Brodie PAIGE ECG ORDERABLES Final Result * ECG 12 lead (03/07/2025 5:01 PM EST) Ventricular Rate ECG 99 BPM GEMUSE Atrial Rate 99 BPM GEMUSE P-R Interval 138 ms GEMUSE QRS Duration 86 ms GEMUSE Q-T Interval 334 ms GEMUSE QTc 428 ms GEMUSE P Wave Badger 53 degrees GEMUSE R Badger 4 degrees GEMUSE T Badger 37 degrees GEMUSE ECG Interpretation Normal sinus rhythm No previous ECGs available Confirmed by VIANEY SANCHEZ ([id number]) on 03/08/2025 8:26:53 AM GEMUSE 03/07/2025 5:01 PM EST 03/08/2025 8:26 AM EST Ximena Smith MD ECG ORDERABLES Final Result GEMUSE * XR Chest 2 Views (03/07/2025 4:26 PM EST) Anatomical Region Laterality Modality Body Radiographic Anita ging 03/07/2025 4:48 PM EST Impressions 03/07/2025 4:49 PM EST FINDINGS/IMPRESSION: Normal heart size and pulmonary vascularity. Lungs are clear and costophrenic angles are sharp. Extrapleural thickening. No acute osseous abnormality.. -------- FINAL REPORT -------- Dictated By: Radha Nguyen Dictated Date: 03/07/2025 16:48 ET Assigned Physician: Radha Nguyen Reviewed and Electronically Signed By: Radha Nguyen Signed Date: 03/07/2025 16:49 ET Workstation ID: [id number] Transcribed By: Self Edit Transcribed Date: 03/07/2025 16:48 ET Narrative 03/07/2025 4:49 PM EST XR CHEST 2 VIEWS INDICATION: dyspnea TECHNIQUE: XR CHEST 2 VIEWS COMPARISON: None Procedure Note Radha Nguyen MD - 03/07/2025 XR CHEST 2 VIEWS INDICATION: dyspnea TECHNIQUE: XR CHEST 2 VIEWS COMPARISON: None IMPRESSION: FINDINGS/IMPRESSION: Normal heart size and pulmonary vascularity. Lungsare clear and costophrenic angles are sharp. Extrapleural thickening. Noacute osseous abnormality.. -------- FINAL REPORT -------- Dictated By: Radha Nguyen Dictated Date: 03/07/2025 16:48 ET Assigned Physician: Radha Nguyen Reviewed and Electronically Signed By: Radha Nguyen Signed Date: 03/07/2025 16:49 ET Workstation ID: [id number] Transcribed By: Self Edit Transcribed Date: 03/07/2025 16:48 ET Ximena Smith MD IMG XR PROCEDURES Final Result from Last 3 Months Insurance [employer] MEDICARE Member Subscriber Plan / Payer (Ef fective 2022-Present) Name:LORENZO FRASER Relation to Subscriber:Self Name:Lorenzo Pisano Payer ID:[id number] Group ID:[id number] Type:Not on file Address: [facility] [address] [place] [address] Care Teams Orthopaedic Physician Assistant Relationship Specialty Start Date End Date Physician, Pcp Unknown PCP - General 03/07/25
== END 2025-03-19 08:55 | disposition home or self-care (01) ==
LOC: HO.SH 08:54
PROVIDERS: Visit Provider Internal Medicine
DX: H91.93 Unspecified hearing loss, bilateral (principal)
CPT/HCPCS: 92552; 92556